=== PATIENT | female | born 1960 | race American Indian/Alaskan Native ===

== ENCOUNTER 2018-07-29 09:01 | Outpatient (CLI) | payer BC ==
[2018-07-29 09:31] LABS: Basophils % (Auto) 1.2 % (0.0-1.8); Eosinophils # (Auto) 0.1 K/mm3 (0.0-0.4); Eosinophils % (Auto) 2.9 % (0.0-4.3); Hematocrit 32.5 % (30.3-42.9); Hemoglobin 10.9 gm/dl (10.1-14.3); Lymphocytes # (Auto) 1.2 K/mm3 (1.2-5.4); Lymphocytes % (Auto) 33.1 % (13.4-35.0); Mean Corpuscular HGB Conc 33 % (30-34); Mean Corpuscular Volume 88 fl (79-97); Monocytes # (Auto) 0.3 K/mm3 (0.0-0.8); Monocytes % (Auto) 8.3 % (0.0-7.3); Platelet Count 214 K/mm3 (140-440); Red Blood Count 3.68 M/mm3 (3.65-5.03); Red Cell Distribution Width 15.1 % (13.2-15.2)
[2018-07-29 09:49] LABS: Microalbumin/Creatinine Ratio 10.9 ug/mg
[2018-07-29 09:55] LABS: Albumin 4.1 g/dL (3.9-5); Calcium 8.9 mg/dL (8.4-10.2)
[2018-07-29 10:18] LABS: Chol/HDL Ratio 2.87 %
== END 2018-07-29 09:02 | disposition home or self-care (01) ==
LOC: LAB 09:01
PROVIDERS: ATTEND Family Medicine
DX: N76.0 Acute vaginitis (principal); N39.498 Other specified urinary incontinence; E11.9 Type 2 diabetes mellitus without complications; I10 Essential (primary) hypertension; Z79.4 Long term (current) use of insulin
CPT/HCPCS: 36415; 80053; 80061; 82043; 85025

== ENCOUNTER 2018-08-04 11:39 | Outpatient (CLI) | payer BC ==
--- NOTE | 2018-08-04 13:44 | XRay Report ---
BILATERAL KNEES, 2 VIEWS History: Pain. Findings: Left knee replacement changes are identified. The hardware appears well applied. No evidence for fracture or loosening. A small joint effusion is suspected on the lateral image. The right knee is within normal limits. Impression: Stable appearance of the left knee prosthesis. Unremarkable right knee films.
--- NOTE | 2018-08-04 13:45 | XRay Report ---
BILATERAL HIPS WITH PELVIS, 3 VIEWS: History: Pain. Findings: Bone mineralization is within normal limits. There is no evidence for fracture, dislocation or pelvic diastasis. Mild bilateral osteoarthritic changes are identified. No evidence for osteonecrosis. The soft tissues are unremarkable. Impression: Mild osteoarthritis.
--- NOTE | 2018-08-04 13:45 | XRay Report ---
LUMBOSACRAL SPINE, FIVE VIEWS: HISTORY: Pain. Normal height and alignment of the lumbar vertebra. No evidence for fracture, subluxation or compression deformity. No bone lesion. Moderate disc space narrowing is identified at L5-S1. The remaining levels are within normal limits. There is mild diffuse facet arthropathy. The oblique images are limited but no high grade neuroforaminal stenosis is identified. IMPRESSION: Mild lumbar spondylosis as described.
--- NOTE | 2018-08-04 13:47 | XRay Report ---
BILATERAL FEET, 2 VIEWS History: Pain. Findings: No evidence for fracture or joint pathology or bony lesion. There are mild osteoarthritic changes in the midfoot. Small bilateral plantar spurs are identified. The soft tissues are unremarkable. Impression: Mild degenerative changes. Bilateral plantar spurs.
== END 2018-08-04 11:40 | disposition home or self-care (01) ==
LOC: XRAY 11:39
PROVIDERS: ATTEND Orthopaedic Surgery
DX: M19.072 Primary osteoarthritis, left ankle and foot (principal); M19.071 Primary osteoarthritis, right ankle and foot; M77.31 Calcaneal spur, right foot; M77.32 Calcaneal spur, left foot; M16.0 Bilateral primary osteoarthritis of hip; M47.816 Spondylosis without myelopathy or radiculopathy, lumbar region; M25.561 Pain in right knee
CPT/HCPCS: 72110; 73521

== ENCOUNTER 2018-08-28 11:40 | Emergency (ER) | payer OTHER, BC ==
[2018-08-28 11:51] VITALS: BP 140/89
--- NOTE | 2018-08-28 11:52 | Event Note ---
ED Screening Note Date of service: 08/28/18 Time: 11:49 ED Screening Note: This is a 58 y.o. F. that presents to the ER with bilateral wrist pain and knees pain s/p fall. This initial assessment/diagnostic orders/clinical plan/treatment(s) is/are subject to change based on patients health status, clinical progression and re- assessment by fellow clinical providers in the ED. Further treatment and workup at subsequent clinical providers discretion. Patient/guardian urged not to elope from the ED as their condition may be serious if not clinically assessed and managed. Initial orders include: XR wrist, left shoulder, and knees
--- NOTE | 2018-08-28 12:01 | Emergency Department Report ---
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 She denies hitting her head or any loss of consciousness. She has some mild soreness or discomfort to the bilateral wrists, bilateral knees, bilateral elbows and left shoulder. She has a past medical history of diabetes, hypertension, sleep apnea and osteoarthritis. She already follows up with Dr. Mujica regarding her osteoarthritis in her left knee replacement. Patient is ambulatory. She has not taken anything for her symptoms prior to arrival. ED Past Medical Hx - Past Medical History Hx Hypertension: Yes Hx Diabetes: Yes Hx Pulmonary Embolism: Yes Hx Arthritis: Yes Additional medical history: sleep apnea, anemia, LVH - Surgical History Additional Surgical History: Hysterectomy, tubal ligation, D&C, cysto - Social History Smoking Status: Never Smoker Substance Use Type: Prescribed ED Review of Systems ROS: Stated complaint: W/C FALL Other details as noted in HPI Comment: All other systems reviewed and negative Constitutional: denies: chills, fever Eyes: denies: eye pain, vision change Cardiovascular: denies: chest pain Gastrointestinal: denies: abdominal pain Musculoskeletal: arthralgia, myalgia. denies: back pain, joint swelling Neurological: denies: numbness, paresthesias Physical Exam - Physical Exam Vital Signs: Vital Signs 08/28/18 11:48 Temperature 98.7 F Pulse Rate 70 Respiratory 18 Rate Blood Pressure 140/89 O2 Sat by Pulse 99 Oximetry Physical Exam: GENERAL: The patient is well-developed well-nourished. HENT: Normocephalic. Atraumatic. Patient has moist mucous membranes. EYES: Extraocular motions are intact. NECK: Supple. Trachea is midline. CHEST/LUNGS: Clear to auscultation. There is no respiratory distress noted. HEART/CARDIOVASCULAR: Regular. There is no tachycardia. There is no murmur. ABDOMEN: There is no abdominal distention. SKIN: Skin is warm and dry. NEURO: The patient is awake, alert, and oriented. The patient is cooperative. The patient has normal speech. MUSCULOSKELETAL: Mild tenderness to palpation of the bilateral anterior knees, bilateral wrists and bilateral elbows. No obvious deformities. Negative anterior and posterior drawer test and no laxity with valgus or varus stress of either knee. There is no limitation range of motion. There is no evidence of acute injury. 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 She fell forward onto her abdomen, hitting her knees, elbows and wrists. She has some mild tenderness to palpation of these areas. No obvious deformities. The patient was seen ambulatory without any instability or limp. No obvious swelling or trauma. The patient declined any imaging studies. She already has established care with Dr. Mujica, orthopedist. She is instructed to return to the emergency Department with any worsening of her symptoms or any acute distress. - Differential Diagnosis fracture, dislocation, sprain, strain, contusion Critical Care Time: No Critical care attestation.: If time is entered above; I have spent that time in minutes in the direct care of this critically ill patient, excluding procedure time. ED Disposition Clinical Impression: Bilateral wrist pain, Bilateral elbow joint pain Fall Qualifiers: Encounter type: initial encounter Qualified Code(s): W19.XXXA - Unspecified fall, initial encounter Bilateral knee pain Qualifiers: Chronicity: acute Qualified Code(s): M25.561 - Pain in right knee; M25.562 - Pain in left knee Left shoulder pain Qualifiers: Chronicity: acute Qualified Code(s): M25.512 - Pain in left shoulder Disposition: TO HOME OR SELFCARE Is pt being admited?: No Does the pt Need Aspirin: No Condition: Stable Instructions: Arthralgia (ED), Fall Prevention (ED) Additional Instructions: Please follow-up with your primary care physician and orthopedist in the next few days. Please return to the emergency department with any increased pain, new pains, worsening of your symptoms, if any acute distress. Referrals: REECE MUJICA MD [Staff Physician] - 3-5 Days Time of Disposition: 12:01
== END 2018-08-28 12:03 | disposition home or self-care (01) ==
LOC: EEVIPCON 11:40 → ED 11:40
DX: M25.522 Pain in left elbow (principal); M25.521 Pain in right elbow; M25.512 Pain in left shoulder; M25.532 Pain in left wrist; M25.531 Pain in right wrist; M25.561 Pain in right knee; M25.562 Pain in left knee; I10 Essential (primary) hypertension; E11.9 Type 2 diabetes mellitus without complications; M19.90 Unspecified osteoarthritis, unspecified site; Z90.710 Acquired absence of both cervix and uterus; Z98.51 Tubal ligation status; Z88.8 Allergy status to other drugs, medicaments and biological substances; Z88.6 Allergy status to analgesic agent; Z91.041 Radiographic dye allergy status; W01.0XXA Fall on same level from slipping, tripping and stumbling without subsequent striking against object, initial encounter; Y93.89 Activity, other specified; Y92.89 Other specified places as the place of occurrence of the external cause; Y99.8 Other external cause status
CPT/HCPCS: 99282

== ENCOUNTER 2018-10-01 13:23 | Outpatient (CLI) | payer BC ==
--- NOTE | 2018-10-04 10:37 | Mammography Report ---
DIGITAL SCREENING MAMMOGRAM WITH CAD, 10/01/2018 INDICATION: Routine screening mammography. TECHNIQUE: Digital bilateral 2D mammography was obtained in the craniocaudal and mediolateral obliq ue projections. This examination was interpreted with the benefit of Computer-Aided Detection analysi s. COMPARISON: None available FINDINGS: Breast Density: The breasts are almost entirely fatty. There is no evidence of dominant mass, suspicious calcifications or architectural distortion in eithe r breast. IMPRESSION: No evidence of malignancy. BI-RADS Category 1: Negative. No mammographic evidence of malignancy. Recommend routine screening m ammography in one year. A "normal" or negative report should not discourage follow up or biopsy of a clinically significant f inding. A written summary of these findings will be mailed to the patient. The patient will be entered into a mammography reporting system which will generate a reminder letter for the patient's next appointmen t at the appropriate interval. The [employer] recommends yearly mammograms starting at age 40 and continuing as l lidia as a woman is in good health. Breast MRI is recommended for women with an approximate 20-25% or greater lifetime risk of breast cancer, including women with a strong family history of breast or ova john cancer or who have been treated for Hodgkin's disease. Signer Name: Benita Black MD Signed: 10/04/2018 10:32 AM Workstation Name: [id number]
== END 2018-10-01 13:24 | disposition home or self-care (01) ==
LOC: MAMMO 13:23
PROVIDERS: ATTEND Family Medicine
DX: Z12.31 Encounter for screening mammogram for malignant neoplasm of breast (principal); I10 Essential (primary) hypertension; Z90.710 Acquired absence of both cervix and uterus
CPT/HCPCS: 77067

== ENCOUNTER 2018-10-12 09:14 | Outpatient (CLI) | payer BC ==
--- NOTE | 2018-10-12 10:16 | Cat Scan Report ---
CT ABDOMEN AND PELVIS WITHOUT CONTRAST HISTORY: Right upper quadrant pain COMPARISON: None TECHNIQUE: Routine abdominal CT exam performed . All CT scans at this location are performed using CT dose reduction for ALARA by means of automated exposure control. FINDINGS: CT ABDOMEN: Lung Bases: A small pericardial effusion and mild cardiomegaly. The lung bases are clear. Liver: No significant abnormality. Biliary: Normal gallbladder and bile ducts. Spleen: No significant abnormality. Unenlarged. Pancreas: No significant abnormality. Adrenals: No significant abnormality. Kidneys: Bilateral upper pole renal cyst. A hyperdense 1 cm right upper pole cyst and a 1.9 cm left u pper pole renal cyst. Physiologic distention of the collecting systems. No urinary calculus. Lymphatics: No lymphadenopathy. Vasculature: No significant abnormality. Bowel/Peritoneum: No significant abnormality. No free air. No free fluid. Normal appendix. Osseous Structures: No aggressive appearing osseous lesions. Additional Findings: None PELVIS: Urinary bladder: Normal. Status post hysterectomy with normal vaginal cuff. A normal small right ovary. No adnexal mass or minerva e fluid. IMPRESSION: 1. No cholelithiasis and no signs of acute cholecystitis. 2. Bilateral benign renal cysts with a hemorrhagic 1 cm right upper pole renal cyst. 3. Normal pelvis status post hysterectomy and left salpingo-oophorectomy. Signer Name: Greg Lopes MD Signed: 10/12/2018 10:11 AM Workstation Name: [id number]
--- NOTE | 2018-10-12 11:09 | Ultrasound Report ---
ULTRASOUND RENAL ULTRASOUND BLADDER RESIDUAL INDICATION / CLINICAL INFORMATION: R94.4) Abnormal results of kidney function studies.. Chronic kidney disease COMPARISON: None available. FINDINGS: RIGHT KIDNEY: Length = 8.4 cm. [normal > 9 cm] - Parenchymal Thickness = neuro 0.9 cm. [normal > 1.5 cm] - Echogenicity: Increased - Hydronephrosis: None. - Cyst or mass: 1.2 cm cyst near mid pole - Stones: None seen. LEFT KIDNEY: Length = 7.3 cm. [normal > 9 cm] - Parenchymal Thickness = 1.3 cm. [normal > 1.5 cm] - Echogenicity: Increased - Hydronephrosis: None. - Cyst or mass: 2.3 x 1.7 cm cyst near the superior pole - Stones: None seen. URINARY BLADDER: No significant abnormality. Prevoid bladder volume measures 28 cc. No significant po st void residual. FREE FLUID: None. ADDITIONAL FINDINGS: None. IMPRESSION: Chronic renal parenchymal disease. Bilateral simple renal cysts. No significant post void residual. Signer Name: Drew Calvert Jr, MD Signed: 10/12/2018 11:05 AM Workstation Name: [id number]
== END 2018-10-12 09:15 | disposition home or self-care (01) ==
LOC: CT 09:14
PROVIDERS: ATTEND Urology
DX: N28.1 Cyst of kidney, acquired (principal); I13.10 Hypertensive heart and chronic kidney disease without heart failure, with stage 1 through stage 4 chronic kidney disease, or unspecified chronic kidney disease; N18.9 Chronic kidney disease, unspecified; Z90.710 Acquired absence of both cervix and uterus
CPT/HCPCS: 74176; 76770; 76857

== ENCOUNTER 2018-10-18 07:40 | Day surgery (SDC) | payer BC ==
[~2018-10-18 07:40] MED LIST: FLAGYL 500 MG/100 ML 500 MG/100 ML BAG IV NR
[2018-10-18] MEDS ORDERED: ZOFRAN IV PRN (08:33)
[2018-10-18] MEDS ORDERED: SUBLIMAZE IV PRN (08:33)
--- NOTE | 2018-10-18 08:38 | Anesthesia Day of Surgery ---
Anesthesia Day of Surgery - Day of Surgery Patient Examined: Yes Patient H&P Reviewed: Yes Patient is NPO: Yes
[2018-10-18] MEDS ORDERED: PROTONIX PO NR (08:42)
--- NOTE | 2018-10-18 08:43 | Anesthesia Consultation ---
Anesthesia Consult and Med Hx Date of service: 10/18/18 - Airway Anesthetic Teeth Evaluation: Good, Dentures ROM Head & Neck: Adequate Mental/Hyoid Distance: Adequate Mallampati Class: Class II Intubation Access Assessment: Good - Pre-Operative Health Status ASA Pre-Surgery Classification: ASA3 Proposed Anesthetic Plan: General - Pulmonary Hx Smoking: No (PE at age 22 secondary to OCP) Hx Sleep Apnea: Yes (DX SLEEP APNEA WITH CPAP USE.) - Cardiovascular System Hx Hypertension: Yes (X 20 YRS. LVH. ETT 5 years ago-ok per pt) Hx Heart Attack/AMI: No (Can climb two flights of stairs) - Central Nervous System Hx Back Pain: Yes - Gastrointestinal Hx Gastroesophageal Reflux Disease: Yes - Endocrine Hx Non-Insulin Dependent Diabetes: Yes - Hematic Hx Anemia: Yes - Other Systems Hx Cancer: No
[2018-10-18] MEDS ORDERED: NORVASC PO ONE (09:00)
[2018-10-18] MEDS ORDERED: LACTATED RINGERS 1,000 ML IV SCH (09:00)
[2018-10-18] MEDS ORDERED: VERSED IV NR (09:00)
[2018-10-18] MEDS: MORPHINE IV NR ×2 (09:50→12:01)
[2018-10-18] MEDS ORDERED: DIPRIVAN 10 MG/ML IV ONE (10:36)
[2018-10-18] MEDS ORDERED: SUBLIMAZE ONE (10:36)
[2018-10-18] MEDS ORDERED: ZOFRAN ONE (10:36)
[2018-10-18] MEDS ORDERED: XYLOCAINE MPF 2% ONE (10:36)
[2018-10-18] MEDS ORDERED: DECADRON ONE (10:36)
[2018-10-18] MEDS ORDERED: TORADOL ONE (11:46)
[2018-10-18] MEDS ORDERED: PYRIDIUM PO ONE (11:53)
--- NOTE | 2018-10-18 11:53 | Short Stay Summary ---
Short Stay Documentation Date of service: 10/18/18 - History H&P: obtained from office - Allergies and Medications Current Medications: Allergies atorvastatin [From Lipitor] Allergy (Verified 10/08/18 11:23) MUSCLE PAIN Iodinated Contrast- Oral and IV Dye Allergy (Verified 08/28/18 11:42) Hives lamivudine [From Combivir] Allergy (Verified 10/08/18 11:23) MUSCLE WEAKNESS ramipril [From Altace] Allergy (Verified 10/08/18 11:38) ORAL SWELLING sitagliptin [From Janumet] Allergy (Verified 10/08/18 11:38) MUSCLE WEAKNESS zidovudine [From Combivir] Allergy (Verified 10/08/18 11:38) MUSCLE WEAKNESS amoxicillin [From Augmentin] Adverse Reaction (Verified 10/08/18 11:38) Unknown clavulanic acid [From Augmentin] Adverse Reaction (Verified 10/08/18 11:38) GI UPSET ibuprofen Adverse Reaction (Verified 10/08/18 11:39) DECREASED RENAL FUNCTION PT NOT ACTUALLY ALLERGIC,BUT WAS TOLD NOT TO TAKE IT BECAUSE OF HER KIDNEYS. Home Medications Medication Instructions Recorded Confirmed Last Taken Type Cetirizine HCl [ZyrTEC 10mg cap] 10 mg PO PRN PRN 10/08/18 10/18/18 10/12/18 06:00 History Fluticasone [Flonase] 1 spray NS QDAY 10/08/18 10/08/18 Unknown History Iron Fum,Ps/Folic/Bcomp,C No.9 1 each PO DAILY 10/08/18 10/18/18 10/17/18 06:00 History [Folivane-Plus Capsule] L. Acidophilus/Pectin, [address] 1 each PO DAILY 10/08/18 10/08/18 Unknown History [Acidophilus Probiotic Capsule] Lansoprazole [Prevacid] 30 mg PO DAILY 10/08/18 10/08/18 Unknown History Losartan/Hydrochlorothiazide 1 each PO DAILY 10/08/18 10/08/18 Unknown History [Losartan-Hctz 100-25 mg Tab] Saxagliptin HCl/Metformin HCl 1 each PO DAILY 10/08/18 10/08/18 Unknown History [Kombiglyze Xr 2.5-1,000 mg Tab] Tamsulosin [Flomax] 0.4 mg PO QDAY 10/08/18 10/08/18 Unknown History Tizanidine HCl [Zanaflex 4mg CAP] 4 mg PO PRN PRN 10/08/18 10/08/18 Unknown History amLODIPine [Norvasc] 5 mg PO DAILY 10/08/18 10/18/18 Unknown History traMADol [Ultram] 50 mg PO Q4HR PRN 10/08/18 10/18/18 10/16/18 21:00 History Active Medications Fentanyl (Sublimaze) 50 mcg IV Q5MIN PRN PRN Reason: Pain , Severe (7-10) Stop: 10/18/18 20:00 Metronidazole (Flagyl 500 Mg/100 Ml) 500 mg in 100 mls @ 200 mls/hr IV PREOP NR; Protocol Stop: 10/18/18 23:59 Lactated Ringer's (Lactated Ringers) 1,000 mls @ 100 mls/hr IV DIRECT GIAN Midazolam HCl (Versed) 2 mg IV PREOP NR Stop: 10/18/18 23:59 Morphine Sulfate (Morphine) 2 mg IV ONCE NR Stop: 10/18/18 18:00 Ondansetron HCl (Zofran) 4 mg IV ONCE PRN PRN Reason: Nausea And Vomiting Stop: 10/18/18 20:00 Pantoprazole Sodium (Protonix) 20 mg PO ONCE NR Stop: 10/18/18 18:00 - Brief post op/procedure progress note Date of procedure: 10/18/18 Pre-op diagnosis: ITU, urethral stenosis Post-op diagnosis: same Procedure: cysto, urethral dilation, RPG, hydrodistention (800cc) Anesthesia: GETA Surgeon: LUIS ROSALES Estimated blood loss: minimal Pathology: none Condition: stable - Hospital course Hospital course: macrobid, pyridium, norco on chart - Disposition Condition at discharge: Stable Disposition: DC-01 TO HOME OR SELFCARE Short Stay Discharge Plan Follow up with: PCP,FOLLOW UP, MD [Primary Care Provider] - 7 Days
[2018-10-18] MEDS ORDERED: NORCO 5/325 PO PRN (12:19)
--- NOTE | 2018-10-18 12:52 | Operative Report ---
PREOPERATIVE DIAGNOSES: Urethral stenosis, urinary tract infection. POSTOPERATIVE DIAGNOSES: Urethral stenosis, urinary tract infection. PROCEDURE: Cystoscopy, urethral dilatation, bilateral retrograde pyelograms, hydrodistention (800 mL bladder capacity). SURGEON: Kash Ann MD ANESTHESIA: General. ESTIMATED BLOOD LOSS: Minimal. FLUIDS: Crystalloid. COMPLICATIONS: No complications. INDICATIONS: This patient is a 58-year-old female seen in the office with history of left flank pain and lower urinary tract symptoms. She has had a history of urethral strictures and has required a cystoscopy, urethral dilatation under anesthesia by Dr. Janneth Alvarado 5 years ago. Her classics professor is Dr. Vikas Metzger, her primary care is Dr. Pedro Dunham. She also has a history of diabetes, hyperlipidemia, hypertension and sleep apnea. She is status post hysterectomy, D and C x 3, tubal ligation, and history of stones. CT of abdomen and pelvis, kidneys unremarkable except for incidental bilateral renal cysts, left 1 cm and 1.9 cm. Also, post-surgical changes were noted. She does have a history of right flank pain, may have passed a stone recently or has a degree of musculoskeletal disease. DESCRIPTION OF PROCEDURE: The patient was taken to the operative suite, placed in a supine position. After adequate general anesthesia, placed in a dorsal lithotomy position, prepped and draped in a sterile fashion. Pancystourethroscopy was performed with a 22-Ecuadorean Storz cystoscope with what appeared to be some urethral stenosis. Urethral dilatation to 30-Ecuadorean was performed without difficulty. Both ureteral orifices were in normal position. No tumors or stones were noted in the bladder. Bilateral retrograde pyelograms were obtained with an 8 Ecuadorean Rebekah catheter and 8 mL of contrast. No filling defects or obstruction. Hydrodistention was performed. A bladder capacity of 800 mL for evaluation, no signs of petechiae or hemorrhage. Pelvic exam under anesthesia was unremarkable. The patient tolerated the procedure well. She was extubated and taken to recovery room. She will go home on Pyridium, [place] and Macrobid. JOB# [id number] C/NTS
--- NOTE | 2018-10-18 13:35 | Fluoroscopy Report ---
5 fluoroscopic images submitted Indication: Intraoperative localization Impression: 5 images of the abdomen were submitted for documentation purposes with radiology involve ment. Bilateral retrograde pyelograms were performed. Please refer to the operative note for complet e details. Fluoroscopic time: 0.3 minutes Signer Name: Tomasz Smith MD Signed: 10/18/2018 1:31 PM Workstation Name: [id number]
[2018-10-18 13:42] VITALS: BP 110/75
--- NOTE | 2018-10-18 17:53 | Post Anesthesia Evaluation ---
- Post Anesthesia Evaluation Patient Participated: Yes Airway Patent: Yes Stable Respiratory Function: Yes Nausea/Vomiting: No Temp > 96.8F: Yes Pain Manageable: Yes Adequeate Hydration: Yes Anesthesia Complications: No Block Receding Appropriately: Not Applicable Patient on Ventilator: No
== END 2018-10-18 07:41 | disposition home or self-care (01) ==
LOC: OR 07:40
PROVIDERS: ATTEND Urology
DX: N35.82 Other urethral stricture, female (principal); N39.0 Urinary tract infection, site not specified; I25.2 Old myocardial infarction; E78.00 Pure hypercholesterolemia, unspecified; I10 Essential (primary) hypertension; K21.9 Gastro-esophageal reflux disease without esophagitis; G47.30 Sleep apnea, unspecified; M19.90 Unspecified osteoarthritis, unspecified site; E11.9 Type 2 diabetes mellitus without complications; Z79.899 Other long term (current) drug therapy; Z88.6 Allergy status to analgesic agent; Z91.041 Radiographic dye allergy status; Z90.49 Acquired absence of other specified parts of digestive tract; Z98.51 Tubal ligation status; Z90.710 Acquired absence of both cervix and uterus; Z87.442 Personal history of urinary calculi; Z96.652 Presence of left artificial knee joint; Z86.2 Personal history of diseases of the blood and blood-forming organs and certain disorders involving the immune mechanism
CPT/HCPCS: 52281; 74420; 82803; 82962; C1758; J1100; J1885; J2250; J2270; J2405; J2704; J3010; J7120; Q9967

== ENCOUNTER 2018-11-08 07:23 | Outpatient (CLI) | payer BC ==
[2018-11-08 08:29] LABS: Hematocrit 32.9 % (30.3-42.9); Hemoglobin 11.1 gm/dl (10.1-14.3); Mean Corpuscular HGB Conc 34 % (30-34); Mean Corpuscular Volume 88 fl (79-97); Platelet Count 227 K/mm3 (140-440); Red Blood Count 3.74 M/mm3 (3.65-5.03); Red Cell Distribution Width 14.6 % (13.2-15.2)
[2018-11-08 14:09] LABS: Creatinine,Urine 69.1 mg/dL (0.1-20.0)
== END 2018-11-08 07:24 | disposition home or self-care (01) ==
LOC: LAB 07:23
PROVIDERS: ATTEND Internal Medicine
DX: R94.4 Abnormal results of kidney function studies (principal); I10 Essential (primary) hypertension; E11.21 Type 2 diabetes mellitus with diabetic nephropathy; E11.65 Type 2 diabetes mellitus with hyperglycemia; E78.5 Hyperlipidemia, unspecified; K21.9 Gastro-esophageal reflux disease without esophagitis; N13.9 Obstructive and reflux uropathy, unspecified
CPT/HCPCS: 36415; 80053; 82565; 82570; 82575; 84156; 85027; 89050

== ENCOUNTER 2019-03-10 06:31 | Outpatient (CLI) | payer BC ==
[2019-03-10 06:50] LABS: Hematocrit 32.5 % (30.3-42.9); Hemoglobin 10.9 gm/dl (10.1-14.3); Mean Corpuscular HGB Conc 34 % (30-34); Mean Corpuscular Volume 88 fl (79-97); Platelet Count 209 K/mm3 (140-440); Red Blood Count 3.69 M/mm3 (3.65-5.03); Red Cell Distribution Width 15.3 % (13.2-15.2)
[2019-03-10 07:16] LABS: Albumin 4.1 g/dL (3.9-5); Calcium 9.2 mg/dL (8.4-10.2)
[2019-03-10 10:39] LABS: Creatinine,Urine 90.6 mg/dL (0.1-20.0); Protein/Creatinine Ratio,Urine 0.1
== END 2019-03-10 06:32 | disposition home or self-care (01) ==
LOC: LAB 06:31
PROVIDERS: ATTEND Internal Medicine
DX: R94.4 Abnormal results of kidney function studies (principal)
CPT/HCPCS: 36415; 80053; 82570; 84156; 85027

== ENCOUNTER 2019-09-01 09:19 | Emergency (ER) | payer OTHER, BC ==
[2019-09-01 09:27] VITALS: BP 127/71
[2019-09-01] MEDS ORDERED: HYDROcodone/ACETAMINOPHEN 10-325MG TAB PO ONE (09:47)
--- NOTE | 2019-09-01 10:32 | XRay Report ---
LUMBAR SPINE 3 VIEWS INDICATION: Low back pain after fall. COMPARISON: Lumbar spine series from 08/04/2018. FINDINGS: VERTEBRAE: No acute fracture. Grade 1 anterolisthesis is noted at L4-L5. DISC SPACES: Mild discogenic degenerative changes seen at L5-S1 and along the lower thoracic spine. N o additional significant abnormality. FACET JOINTS: There is bilateral facet hypertrophy at L4-L5 and L5-S1. SOFT TISSUES: No significant abnormality. ADDITIONAL FINDINGS: No additional significant findings. IMPRESSION: 1. No acute findings. 2. Degenerative changes as above. Signer Name: Baltazar Blackman MD Signed: 09/01/2019 10:27 AM Workstation Name: [id number]
--- NOTE | 2019-09-01 10:40 | Emergency Department Report ---
ED Back Pain/Injury HPI - General Chief Complaint: Fall Stated Complaint: FALL Time Seen by Provider: 09/01/19 09:45 Source: patient Limitations: No Limitations - History of Present Illness Initial Comments: This is a 59-year-old female nontoxic, well nourished in appearance, no acute signs of distress presents to the ED with c/o of lower back pain. Patient stated that she had a ground level fall from a chair to her lower back. Patient states has history of sciatica nerve pain which is similar symptoms as today. Patient states that pain radiates through to his left lower extremity. Patient denies any other trauma. Denies any bladder or bowel instability. Patient denies any urinary symptoms. Denies any fever, chills, nausea, vomiting, headache, stiff neck, chest pain or shortness of breath. Patient denies any numbness or tingling. MD Complaint: back pain -: days(s) Similar Symptoms Previously: Yes Place: work Radiation: left leg Severity: mild Severity scale (0 -10): 8 Quality: aching Consistency: intermittent Improves With: immobilization, sitting upright Worsens With: movement, walking Context: fall Associated Symptoms: denies other symptoms. denies: confusion, weakness, chest pain, numbness, difficulty walking, cough, difficulty urinating, diaphoresis, incontinence, fever/chills, constipation, headaches, abdominal pain, loss of appetite, malaise, nausea/vomiting, rash, seizure, shortness of breath, syncope - Related Data Home Medications Medication Instructions Recorded Confirmed Last Taken Cetirizine HCl [ZyrTEC 10mg cap] 10 mg PO PRN PRN 10/08/18 10/18/18 10/12/18 06:00 Fluticasone [Flonase] 1 spray NS QDAY 10/08/18 10/18/18 10/17/18 06:00 Iron Fum,Ps/Folic/Bcomp,C No.9 1 each PO DAILY 10/08/18 10/18/18 10/17/18 06:00 [Folivane-Plus Capsule] L. Acidophilus/Pectin, Power 1 each PO DAILY 10/08/18 10/18/18 10/16/18 06:00 [Acidophilus Probiotic Capsule] Lansoprazole [Prevacid] 30 mg PO DAILY 10/08/18 10/18/18 10/18/18 06:00 Losartan/Hydrochlorothiazide 1 each PO DAILY 10/08/18 10/18/18 10/18/18 06:00 [Losartan-Hctz 100-25 mg Tab] Saxagliptin HCl/Metformin HCl 1 each PO DAILY 10/08/18 10/18/18 10/18/18 06:00 [Kombiglyze Xr 2.5-1,000 mg Tab] Tamsulosin [Flomax] 0.4 mg PO QDAY 10/08/18 10/18/18 10/17/18 21:30 Tizanidine HCl [Zanaflex 4mg CAP] 4 mg PO PRN PRN 10/08/18 10/18/18 10/16/18 21:00 amLODIPine 5 mg PO DAILY 10/08/18 10/18/18 Unknown traMADoL [Ultram] 50 mg PO Q4HR PRN 10/08/18 10/18/18 10/16/18 21:00 Previous Rx's Medication Instructions Recorded Last Taken Type traMADoL [Ultram 50 MG tab] 50 mg PO Q4HR PRN #120 tablet 04/20/19 Unknown Rx Cyclobenzaprine [Flexeril] 10 mg PO QHS PRN #10 tablet 09/01/19 Unknown Rx Allergies Allergy/AdvReac Type Severity Reaction Status Date / Time atorvastatin [From Lipitor] Allergy MUSCLE PAIN Verified 10/08/18 11:23 Iodinated Contrast Media Allergy Hives Verified 08/28/18 11:42 [Iodinated Contrast- Oral and IV Dye] lamivudine [From Combivir] Allergy MUSCLE Verified 10/08/18 11:23 WEAKNESS ramipril [From Altace] Allergy ORAL Verified 10/08/18 11:38 SWELLING sitagliptin [From Janumet] Allergy MUSCLE Verified 10/08/18 11:38 WEAKNESS zidovudine [From Combivir] Allergy MUSCLE Verified 10/08/18 11:38 WEAKNESS amoxicillin [From Augmentin] AdvReac Unknown Verified 10/08/18 11:38 clavulanic acid AdvReac GI UPSET Verified 10/08/18 11:38 [From Augmentin] ibuprofen AdvReac DECREASED Verified 10/08/18 11:39 RENAL FUNCTION ED Review of Systems ROS: Stated complaint: FALL Other details as noted in HPI Constitutional: denies: chills, fever Eyes: denies: eye pain, eye discharge, vision change ENT: denies: ear pain, throat pain Respiratory: denies: cough, shortness of breath, wheezing Cardiovascular: denies: chest pain, palpitations Endocrine: no symptoms reported Gastrointestinal: denies: abdominal pain, nausea, diarrhea Genitourinary: denies: urgency, dysuria, discharge Musculoskeletal: back pain. denies: joint swelling, arthralgia Skin: denies: rash, lesions Neurological: denies: headache, weakness, paresthesias Psychiatric: denies: anxiety, depression Hematological/Lymphatic: denies: easy bleeding, easy bruising ED Past Medical Hx - Past Medical History Previous Medical History?: Yes Hx Hypertension: Yes (X 20 YRS. LVH. ETT 5 years ago-ok per pt) Hx Heart Attack/AMI: No (Can climb two flights of stairs) Hx Diabetes: Yes Hx Pulmonary Embolism: Yes Hx Arthritis: Yes Additional medical history: sleep apnea, anemia, LVH - Surgical History Past Surgical History?: Yes Additional Surgical History: Hysterectomy, tubal ligation, D&C, cysto - Social History Smoking Status: Never Smoker Substance Use Type: None - Medications Home Medications: Home Medications Medication Instructions Recorded Confirmed Last Taken Type Cetirizine HCl [ZyrTEC 10mg cap] 10 mg PO PRN PRN 10/08/18 10/18/18 10/12/18 06:00 History Fluticasone [Flonase] 1 spray NS QDAY 10/08/18 10/18/18 10/17/18 06:00 History Iron Fum,Ps/Folic/Bcomp,C No.9 1 each PO DAILY 10/08/18 10/18/18 10/17/18 06:00 History [Folivane-Plus Capsule] L. Acidophilus/Pectin, Power 1 each PO DAILY 10/08/18 10/18/18 10/16/18 06:00 History [Acidophilus Probiotic Capsule] Lansoprazole [Prevacid] 30 mg PO DAILY 10/08/18 10/18/18 10/18/18 06:00 History Losartan/Hydrochlorothiazide 1 each PO DAILY 10/08/18 10/18/18 10/18/18 06:00 History [Losartan-Hctz 100-25 mg Tab] Saxagliptin HCl/Metformin HCl 1 each PO DAILY 10/08/18 10/18/18 10/18/18 06:00 History [Kombiglyze Xr 2.5-1,000 mg Tab] Tamsulosin [Flomax] 0.4 mg PO QDAY 10/08/18 10/18/18 10/17/18 21:30 History Tizanidine HCl [Zanaflex 4mg CAP] 4 mg PO PRN PRN 10/08/18 10/18/18 10/16/18 21:00 History amLODIPine 5 mg PO DAILY 10/08/18 10/18/18 Unknown History traMADoL [Ultram] 50 mg PO Q4HR PRN 10/08/18 10/18/18 10/16/18 21:00 History traMADoL [Ultram 50 MG tab] 50 mg PO Q4HR PRN #120 tablet 04/20/19 Unknown Rx Cyclobenzaprine [Flexeril] 10 mg PO QHS PRN #10 tablet 09/01/19 Unknown Rx ED Physical Exam - General Limitations: No Limitations General appearance: alert, in no apparent distress - Head Head exam: Present: atraumatic, normocephalic - Eye Eye exam: Present: normal appearance - Neck Neck exam: Present: normal inspection, full ROM. Absent: tenderness, meningismus, lymphadenopathy - Cardiovascular Cardiovascular Exam: Absent: diastolic murmur - Extremities Exam Extremities exam: Present: normal inspection, full ROM, normal capillary refill. Absent: tenderness - Back Exam Back exam: Present: normal inspection, full ROM, paraspinal tenderness (lumbar region), vertebral tenderness (lumbar region). Absent: tenderness, CVA tenderness (R), CVA tenderness (L), muscle spasm, rash noted - Expanded Back Exam Expanded Back exam: Absent: saddle anesthesia Back exam: Negative Straight Leg Raising: Left, Right - Neurological Exam Neurological exam: Present: alert, oriented X3, normal gait - Psychiatric Psychiatric exam: Present: normal affect, normal mood - Skin Skin exam: Present: warm, dry, intact, normal color. Absent: rash ED Course Vital Signs 09/01/19 09/01/19 09:26 09:51 Temperature 98.4 F Pulse Rate 68 Respiratory 16 16 Rate Blood Pressure 127/71 O2 Sat by Pulse 100 Oximetry - Reevaluation(s) Reevaluation #1: 09/01/19 10:38 Patient is speaking in full sentences with no signs of distress noted. ED Medical Decision Making - Radiology Data Referring Physician: DARLIN MORALES Patient Name: WAGNER VELA Date of : 1960 Sex: Female Report Date: 2019-09-01 Report Status: Finalized [facility] [address] [place] [address] XRay Report Signed Patient: WAGNER VELA MR#: [id number] : 1960 Acct:[id number] Age/Sex: 59 / F ADM Date: 09/01/19 Loc: ED Attending Dr: Ordering Physician: DARLIN MORALES NP Date of Service: 09/01/19 Procedure(s): XR spine lumbosacral 2-3V Accession Number(s): [id number] cc: DARLIN MORALES NP Fluoro Time In Minutes: LUMBAR SPINE 3 VIEWS INDICATION: Low back pain after fall. COMPARISON: Lumbar spine series from 08/04/2018. FINDINGS: VERTEBRAE: No acute fracture. Grade 1 anterolisthesis is noted at L4-L5. DISC SPACES: Mild discogenic degenerative changes seen at L5-S1 and along the lower thoracic spine. No additional significant abnormality. FACET JOINTS: There is bilateral facet hypertrophy at L4-L5 and L5-S1. SOFT TISSUES: No significant abnormality. ADDITIONAL FINDINGS: No additional significant findings. IMPRESSION: 1. No acute findings. 2. Degenerative changes as above. Signer Name: Baltazar Blackman MD Signed: 09/01/2019 10:27 AM Workstation Name: [id number] Transcribed By: MN Dictated By: Baltazar Blackman MD Electronically Auth enticated By: Baltazar Blackman MD Signed Date/Time: 09/01/19 1027 DD/ 1026 TD/TT: - Medical Decision Making This is a 59-year-old female that presents with low back strain. Patient is stable was examined by me. There is no cauda equina syndrome during examination. No bladder or bowel instability. Patient received Norcvo in the ED which stated that her symptoms has resolved and subsided. PAtient stated that her will drive her home after discharge due to possible drowiness. Patient is discharged with muscle relaxant. Patient was instructed not to operate any machinery while taking muscle relaxant as they cause her drowsiness. Patient was referred to Follow-up with a primary care doctor in 3-5 days or if symptoms worsen and continue return to emergency room as soon as possible. At time of discharge, the patient does not seem toxic or ill in appearance. No acute signs of distress noted. Patient agrees to discharge treatment plan of care. No further questions noted by the patient. This chart is dictated with using [employer] Dictation Program Critical care attestation.: If time is entered above; I have spent that time in minutes in the direct care of this critically ill patient, excluding procedure time. ED Disposition Clinical Impression: Low back strain Qualifiers: Encounter type: initial encounter Qualified Code(s): S39.012A - Strain of muscle, fascia and tendon of lower back, initial encounter Disposition: TO HOME OR SELFCARE Is pt being admited?: No Does the pt Need Aspirin: No Condition: Stable Instructions: Low Back Strain (ED), Cyclobenzaprine (By mouth) Additional Instructions: Follow-up with a primary care doctor in 3-5 days or if symptoms worsen and continue return to emergency room as soon as possible. Take Flexeril as prescribed. Do not operate heavy machinery while taking Flexeril due to sedation Prescriptions: Cyclobenzaprine [Flexeril] 10 mg PO QHS PRN #10 tablet PRN Reason: Muscle Spasm Referrals: SUNSHINE VASQUEZ MD [Other] - 3-5 Days PRIMARY CAREMD [Referring] - 3-5 Days MEG BAL MD [Staff Physician] - 3-5 Days Forms: Work/School Release Form(ED)
== END 2019-09-01 10:51 | disposition home or self-care (01) ==
LOC: ED 09:19
DX: S39.012A Strain of muscle, fascia and tendon of lower back, initial encounter (principal); I10 Essential (primary) hypertension; E11.9 Type 2 diabetes mellitus without complications; M19.90 Unspecified osteoarthritis, unspecified site; Z79.899 Other long term (current) drug therapy; Z90.710 Acquired absence of both cervix and uterus; Z98.51 Tubal ligation status; Z91.041 Radiographic dye allergy status; Z79.2 Long term (current) use of antibiotics; Z88.8 Allergy status to other drugs, medicaments and biological substances; W07.XXXA Fall from chair, initial encounter; Y93.89 Activity, other specified; Y92.89 Other specified places as the place of occurrence of the external cause; Y99.8 Other external cause status
CPT/HCPCS: 72100; 99283

== ENCOUNTER 2019-10-26 11:31 | Outpatient (CLI) | payer BC, OTHER ==
--- NOTE | 2019-10-26 13:45 | Magnetic Resonance Report ---
MR lumbar spine wo con INDICATION / CLINICAL INFORMATION: 59 years Female; MAIN. TECHNIQUE: Multisequence, multiplanar images of the lumbar spine were obtained. COMPARISON: None available. FINDINGS: ALIGNMENT: There is 5 mm of anterolisthesis at L4-L5 with disc desiccation and facet joint hypertroph y. There is minimal retrolisthesis at L3-4 with disc desiccation. VERTEBRAE:There are advanced degenerative disc changes at L5-S1 with slight endplate edema on the lef t at. VISUALIZED SPINAL CORD: The motion degrades the image quality despite repeat imaging. However, the di stal spinal cord appears to demonstrate appropriate morphology and terminates at L1-2. [id number] ANALYSIS: L1-2: No significant abnormality. L2-3: No significant abnormality. L3-4: The spondylosis minimally flattens the ventral thecal sac. The facet joint hypertrophy contribu tasha to mild neural foraminal narrowing bilaterally. L4-5: The central disc bulge slightly flattens the thecal sac. The neural from narrowing mildly encro aches on the exiting L4 nerve root sheaths bilaterally. L5-S1: The broad-based central disc bulge and annular tear mildly flattens the ventral thecal sac wit h slight encroachment on the left lateral recess. The foraminal spondylosis and facet joint hypertrop hy also mildly encroach on the exiting L5 nerve root sheaths bilaterally. PARASPINAL SOFT TISSUES: No significant abnormality. ADDITIONAL FINDINGS: No epidural collections are identified. IMPRESSION: 1. There is mild anterolisthesis at L4-L5 with facet joint hypertrophy which mildly encroaches on the exiting L4 nerve root sheaths bilaterally. 2. There are advanced degenerative disc changes at L5-S1 with broad-based disc bulge which mildly def orms the ventral thecal sac. The foraminal narrowing mildly encroaches on the exiting L5 nerve root s heaths bilaterally. Signer Name: Haim Salgado MD Signed: 10/26/2019 1:41 PM Workstation Name: [id number]
== END 2019-10-26 11:32 | disposition home or self-care (01) ==
LOC: MRI 11:31
PROVIDERS: ATTEND Orthopaedic Surgery
DX: M51.27 Other intervertebral disc displacement, lumbosacral region (principal); M47.817 Spondylosis without myelopathy or radiculopathy, lumbosacral region; M48.061 Spinal stenosis, lumbar region without neurogenic claudication
CPT/HCPCS: 72148

== ENCOUNTER 2019-12-12 12:28 | Outpatient (CLI) | payer BC ==
[2019-12-12 14:29] LABS: Albumin 4.3 g/dL (3.9-5); Calcium 9.2 mg/dL (8.4-10.2)
[2019-12-13 16:18] LABS: Chol/HDL Ratio 2.8 %
== END 2019-12-12 12:29 | disposition home or self-care (01) ==
LOC: LAB 12:28
DX: I10 Essential (primary) hypertension (principal); E11.9 Type 2 diabetes mellitus without complications
CPT/HCPCS: 36415; 80053; 80061; 83036

== ENCOUNTER 2020-01-03 14:46 | Outpatient (CLI) | payer BC ==
[2020-01-02 14:03] LABS: Hematocrit 34.1 % (30.3-42.9); Hemoglobin 11.2 gm/dl (10.1-14.3); Mean Corpuscular HGB Conc 33 % (30-34); Mean Corpuscular Volume 88 fl (79-97); Platelet Count 238 K/mm3 (140-440); Red Blood Count 3.87 M/mm3 (3.65-5.03); Red Cell Distribution Width 15.2 % (13.2-15.2)
--- NOTE | 2020-01-04 08:13 | Mammography Report ---
BILATERAL DIGITAL SCREENING MAMMOGRAM WITH CAD HISTORY: SCREENING MAMMO TECHNIQUE: Routine digital mammographic imaging performed. This examination was interpreted with grace stover benefit of Computer-aided Detection analysis. COMPARISON: 10/01/2018. FINDINGS: Breast Density: predominantly fatty breast parenchymal pattern. Digital CC and MLO views demonstrate no mammographic evidence of malignancy. A left slightly lateral central breast asymmetry on the CC view is stable. IMPRESSION: No mammographic evidence of malignancy. If the clinical examination remains stable, recommend bilate ral mammogram in approximately one year. BIRADS 2: Benign Finding(s). FURTHER INFORMATION: According to the [employer], yearly mammograms are recommend ed starting at age 40 and continuing as long as a woman is in good health. Clinical Breast Exams shou ld be part of a periodic health exam-about every 3 years for women in their 20s and 30s and every yea r for women 40 and over. Breast self exam is an option for women starting in their 20s. Any breast ch stephania noted on a breast self exam should be reported promptly to the patient's healthcare provider. Br east MRI is recommended for women with an approximately 20-25% or greater lifetime risk of breast can cer, including women with a strong family history of breast or ovarian cancer and women who have been treated for Hodgkin's disease. A negative Mammography report should not discourage follow up or biopsy of a clinically significant f inding and/or abnormality. Dense breast tissue may obscure small neoplasms. The patient will be entered into a reminder system with a target due date for the next screening mamm ogram. Signer Name: Haim Dee MD Signed: 01/04/2020 8:09 AM Workstation Name: [id number]
== END 2020-01-03 14:47 | disposition home or self-care (01) ==
LOC: MAMMO 14:46
PROVIDERS: ATTEND Family Medicine
DX: Z12.31 Encounter for screening mammogram for malignant neoplasm of breast (principal); D50.8 Other iron deficiency anemias
CPT/HCPCS: 36415; 77067; 82728; 82747; 85027

== ENCOUNTER 2020-01-25 07:34 | Outpatient (CLI) | payer BC ==
[2020-01-25 08:18] LABS: Bilirubin,Urine NEG (Negative); Blood,Urine NEG (Negative); Color,Urine Yellow (Yellow); Mucus,Urine FEW /HPF; Protein,Urine <15 mg/dL mg/dL (Negative); Urobilinogen,Urine < 2.0 mg/dL (<2.0); WBC,Urine < 1.0 /HPF (0.0-6.0)
[2020-01-25 08:46] LABS: Albumin 3.8 g/dL (3.9-5); Chol/HDL Ratio 3.17 %
== END 2020-01-25 07:35 | disposition home or self-care (01) ==
LOC: LAB 07:34
PROVIDERS: ATTEND Family Medicine
DX: Z00.00 Encounter for general adult medical examination without abnormal findings (principal)
CPT/HCPCS: 36415; 80053; 80061; 81001

== ENCOUNTER 2020-04-24 11:03 | Outpatient (CLI) | payer BC ==
[2020-04-24 11:35] LABS: Hematocrit 31.8 % (30.3-42.9); Hemoglobin 10.8 gm/dl (10.1-14.3); Mean Corpuscular HGB Conc 34 % (30-34); Mean Corpuscular Volume 87 fl (79-97); Platelet Count 216 K/mm3 (140-440); Red Blood Count 3.66 M/mm3 (3.65-5.03); Red Cell Distribution Width 14.9 % (13.2-15.2)
[2020-04-24 11:58] LABS: Albumin 4.1 g/dL (3.9-5)
[2020-04-24 13:15] LABS: Creatinine,Urine 87.3 mg/dL (0.1-20.0)
[2020-04-24 13:29] LABS: Protein/Creatinine Ratio,Urine 0.08
== END 2020-04-24 11:04 | disposition home or self-care (01) ==
LOC: LAB 11:03
PROVIDERS: ATTEND Internal Medicine
DX: E11.21 Type 2 diabetes mellitus with diabetic nephropathy (principal); R94.4 Abnormal results of kidney function studies; I10 Essential (primary) hypertension; E78.5 Hyperlipidemia, unspecified; K21.9 Gastro-esophageal reflux disease without esophagitis; N13.9 Obstructive and reflux uropathy, unspecified
CPT/HCPCS: 36415; 80053; 82570; 84156; 85027

== ENCOUNTER 2020-04-27 13:11 | Outpatient (CLI) | payer BC ==
--- NOTE | 2020-04-27 16:47 | Magnetic Resonance Report ---
MRI RIGHT KNEE WITHOUT CONTRAST INDICATION / CLINICAL INFORMATION: PAIN IN RIGHT KNEE. TECHNIQUE: Multiplanar, multisequence MR images were obtained. No contrast used. COMPARISON: None available. FINDINGS: MEDIAL MENISCUS: Diffuse degenerative tearing along the free edge with partial extrusion of the body. LATERAL MENISCUS: No significant abnormality. ACL: Mucoid degeneration, no acute finding. PCL: No significant abnormality. MCL: No significant abnormality. LCL: No significant abnormality. DISTAL IT BAND: No significant abnormality. POSTEROLATERAL CORNER: No significant abnormality. DISTAL QUADRICEPS TENDON: No significant abnormality. PATELLAR TENDON: No significant abnormality. PATELLOFEMORAL ALIGNMENT: Tibial tuberosity trochlear groove distance is mildly elevated at 1.8 cm (n ormal is 1.5 cm or less). There is prominence of the anterior process of the lateral femoral condyle and the patella is slightly perched laterally. ARTICULAR CARTILAGE: There is diffuse cartilage thinning with full-thickness cartilage loss along the weightbearing surfaces of the medial compartment. There is also full-thickness cartilage loss along the lateral trochlea and lateral patella. JOINT SPACE: Small effusion with synovitis. No significant popliteal cyst. Tricompartmental joint spa ce narrowing with osteophyte formation. BONES: No significant bone marrow edema. No fracture. No osseous lesion. SOFT TISSUES: No significant abnormality. ADDITIONAL FINDINGS: None. IMPRESSION: 1. Moderate tricompartmental degenerative changes greatest at the medial compartment where there is d iffuse free edge fraying of the lateral meniscus and full-thickness cartilage loss along both sides o f the joint with mild underlying subchondral cystic change. 2. Patellar maltracking, as above. There is associated full-thickness cartilage loss at the patellofe moral articulation laterally. 3. Small effusion with synovitis. Signer Name: Vu Aragon MD Signed: 04/27/2020 4:42 PM Workstation Name: [email or web address]
== END 2020-04-27 13:12 | disposition home or self-care (01) ==
LOC: XRAY 13:11
PROVIDERS: ATTEND Orthopaedic Surgery
DX: S83.241A Other tear of medial meniscus, current injury, right knee, initial encounter (principal); M17.11 Unilateral primary osteoarthritis, right knee; M25.461 Effusion, right knee; M65.861 Other synovitis and tenosynovitis, right lower leg; X58.XXXA Exposure to other specified factors, initial encounter; Y93.89 Activity, other specified; Y92.89 Other specified places as the place of occurrence of the external cause; Y99.8 Other external cause status
CPT/HCPCS: 73721

== ENCOUNTER 2020-05-25 11:51 | Outpatient (CLI) | payer BC ==
--- NOTE | 2020-05-25 14:53 | Magnetic Resonance Report ---
MRI right hip without IV contrast INDICATION / CLINICAL INFORMATION: Right hip pain without injury chronic and worsening right hip pain TECHNIQUE: Multiplanar, multisequence MR images were obtained. Routine MRI right hip without contrast COMPARISON: None available. FINDINGS: The bone marrow signal of the right hip is unremarkable. There is mild degenerative changes of the ri ght hip. There is a macerated tear involving the superior aspect of the labrum with minimal right hip effusion. There is no osteonecrosis of the right hip. There is mild tendinosis of the distal right gluteus medius tendon. No acute process is identified within the pelvis. The sacrum is intact and there is minimal degenerat ines changes within the SI joints. Incidentally there is mild tendinosis involving the common hamstrin g tendon IMPRESSION: 1. Mild early degenerative changes of the right hip with extensive irregularity of the superior labru m concerning for a prominent degenerative tear of the superior aspect of the labrum, probably subacut e or chronic. 2. No evidence of right hip osteonecrosis. 3. Mild to moderately developed tendinosis involving the common hamstring tendon near the right ischi um. 4. Mild degenerative changes of the right SI joint. Signer Name: Angel Nassar MD Signed: 05/25/2020 2:48 PM Workstation Name: [id number]
--- NOTE | 2020-05-25 14:55 | Magnetic Resonance Report ---
MRI of the left hip without contrast INDICATION / CLINICAL INFORMATION: pain in left hip. Worsening left hip pain without injury TECHNIQUE: Multiplanar, multisequence MR images were obtained. Routine MRI left hip obtained without IV contrast COMPARISON: None available. FINDINGS: MRI left hip. There is minimal to mild degenerative changes of the left hip. The labrum demonstrates some increased degenerative signal but otherwise no high-grade labral tear is identified. There is no osteonecrosis of the left hip. There is mild to moderate tendinosis involving the distal aspect of t he left gluteus medius tendon near the greater trochanteric attachment. There is a small bursa overly ing the left greater trochanter. The bone marrow signal of the left hip is grossly unremarkable. IMPRESSION: 1. Mild early degenerative changes of the left hip without evidence of high-grade labral tear. 2. Moderate tendinosis of the distal left gluteus medius tendon near the greater trochanteric attachm ent with small overlying bursal fluid collection, as above. 3. 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
== END 2020-05-25 11:52 | disposition home or self-care (01) ==
LOC: MRI 11:51
PROVIDERS: ATTEND Orthopaedic Surgery
DX: S71.011A Laceration without foreign body, right hip, initial encounter (principal); M16.0 Bilateral primary osteoarthritis of hip; M76.02 Gluteal tendinitis, left hip; M25.451 Effusion, right hip; M47.898 Other spondylosis, sacral and sacrococcygeal region; X58.XXXA Exposure to other specified factors, initial encounter; Y93.89 Activity, other specified; Y92.89 Other specified places as the place of occurrence of the external cause; Y99.8 Other external cause status
CPT/HCPCS: 73721

== ENCOUNTER 2020-08-17 10:24 | Outpatient (CLI) | payer BC ==
[2020-08-17 11:01] LABS: Basophils % (Auto) 0.7 % (0.0-1.8); Eosinophils # (Auto) 0.1 K/mm3 (0.0-0.4); Eosinophils % (Auto) 3.5 % (0.0-4.3); Hematocrit 32.4 % (30.3-42.9); Hemoglobin 10.8 gm/dl (10.1-14.3); Lymphocytes # (Auto) 1.3 K/mm3 (1.2-5.4); Lymphocytes % (Auto) 33.7 % (13.4-35.0); Mean Corpuscular HGB Conc 33 % (30-34); Mean Corpuscular Volume 89 fl (79-97); Monocytes # (Auto) 0.4 K/mm3 (0.0-0.8); Monocytes % (Auto) 10.7 % (0.0-7.3); Platelet Count 185 K/mm3 (140-440); Red Blood Count 3.67 M/mm3 (3.65-5.03); Red Cell Distribution Width 14.6 % (13.2-15.2)
[2020-08-17 11:21] LABS: Erythrocyte Sedimentation Rate 36 mm/Hr (0-20)
== END 2020-08-17 10:25 | disposition home or self-care (01) ==
LOC: LAB 10:24
PROVIDERS: ATTEND Orthopaedic Surgery
DX: M25.362 Other instability, left knee (principal)
CPT/HCPCS: 36415; 85025; 85652; 86140

== ENCOUNTER 2020-09-19 11:57 | Outpatient (CLI) | payer BC ==
[2020-09-19 15:02] LABS: Total Cells Counted 100 /mm3
== END 2020-09-19 11:58 | disposition home or self-care (01) ==
LOC: LAB 11:57
PROVIDERS: ATTEND Orthopaedic Surgery
DX: Z96.652 Presence of left artificial knee joint (principal)
CPT/HCPCS: 87102; 87116; 89051

== ENCOUNTER 2020-11-19 08:16 | Outpatient (CLI) | payer BC ==
[2020-11-19 08:56] LABS: Basophils % (Auto) 0.7 % (0.0-1.8); Eosinophils # (Auto) 0.1 K/mm3 (0.0-0.4); Eosinophils % (Auto) 1.6 % (0.0-4.3); Lymphocytes # (Auto) 1.4 K/mm3 (1.2-5.4); Lymphocytes % (Auto) 30.9 % (13.4-35.0); Mean Corpuscular HGB Conc 34 % (30-34); Mean Corpuscular Volume 86 fl (79-97); Monocytes # (Auto) 0.3 K/mm3 (0.0-0.8); Monocytes % (Auto) 7.4 % (0.0-7.3); Platelet Count 225 K/mm3 (140-440); Red Blood Count 3.71 M/mm3 (3.65-5.03); Red Cell Distribution Width 14.7 % (13.2-15.2)
[2020-11-19 09:15] LABS: Albumin 4.2 g/dL (3.9-5); Calcium 9.4 mg/dL (8.4-10.2); Chol/HDL Ratio 2.9 %
[2020-11-19 09:29] LABS: Free T4 (Free Thyroxine) 1.27 ng/dL (0.76-1.46)
[2020-11-19 10:58] LABS: Bilirubin,Urine NEG (Negative); Blood,Urine NEG (Negative); Color,Urine Yellow (Yellow); Protein,Urine <15 mg/dL mg/dL (Negative); RBC,Urine < 1.0 /HPF (0.0-6.0); Urobilinogen,Urine < 2.0 mg/dL (<2.0); WBC,Urine < 1.0 /HPF (0.0-6.0)
== END 2020-11-19 08:17 | disposition home or self-care (01) ==
LOC: LAB 08:16
DX: E11.65 Type 2 diabetes mellitus with hyperglycemia (principal); E78.1 Pure hyperglyceridemia
CPT/HCPCS: 36415; 80053; 80061; 81001; 82550; 84156; 84439; 84443; 85025

== ENCOUNTER 2020-12-06 06:42 | Outpatient (CLI) | payer BC ==
--- NOTE | 2020-12-06 09:58 | Mammography Report ---
DIGITAL SCREENING MAMMOGRAM WITH CAD, 12/06/2020 CLINICAL INFORMATION / INDICATION: Routine screening mammography. SCREENING MAMMOGRAM TECHNIQUE: Digital bilateral 2D mammography was obtained in the craniocaudal and mediolateral obliqu e projections. This examination was interpreted with the benefit of Computer-Aided Detection analysis . COMPARISON: 01/03/2020 FINDINGS: Breast Density: The breasts are almost entirely fatty. No dominant mass, suspicious calcifications, or architectural distortion in either breast. IMPRESSION: No mammographic evidence of malignancy. Follow up recommendation: Routine yearly BI-RADS Category 1: Negative. A "normal" or negative report should not discourage follow up or biopsy of a clinically significant f inding. A written summary of these findings will be mailed to the patient. The patient will be entered into a mammography reporting system which will generate a reminder letter for the patient's next appointmen t at the appropriate interval. The [employer] recommends yearly mammograms starting at age 40 and continuing as l lidia as a woman is in good health. Breast MRI is recommended for women with an approximate 20-25% or greater lifetime risk of breast cancer, including women with a strong family history of breast or ova john cancer or who have been treated for Hodgkin's disease. Signer Name: Greg Warner MD Signed: 12/06/2020 9:54 AM Workstation Name: [email or web address]
== END 2020-12-06 06:43 | disposition home or self-care (01) ==
LOC: MAMMO 06:42
PROVIDERS: ATTEND Family Medicine
DX: Z12.31 Encounter for screening mammogram for malignant neoplasm of breast (principal)
CPT/HCPCS: 77067

== ENCOUNTER 2020-12-31 11:27 | Outpatient (CLI) | payer BC ==
[2020-12-31 12:28] LABS: Basophils % (Auto) 0.6 % (0.0-1.8); Eosinophils # (Auto) 0.1 K/mm3 (0.0-0.4); Eosinophils % (Auto) 1.6 % (0.0-4.3); Hemoglobin 10.5 gm/dl (10.1-14.3); Lymphocytes # (Auto) 1.7 K/mm3 (1.2-5.4); Mean Corpuscular HGB Conc 33 % (30-34); Mean Corpuscular Volume 87 fl (79-97); Monocytes # (Auto) 0.4 K/mm3 (0.0-0.8); Monocytes % (Auto) 8.9 % (0.0-7.3); Platelet Count 200 K/mm3 (140-440); Red Blood Count 3.66 M/mm3 (3.65-5.03); Red Cell Distribution Width 15.1 % (13.2-15.2)
[2020-12-31 12:31] LABS: Bacteria,Urine 1+ /HPF (Negative); Bilirubin,Urine NEG (Negative); Blood,Urine NEG (Negative); Color,Urine Yellow (Yellow); Protein,Urine <15 mg/dL mg/dL (Negative); Urobilinogen,Urine < 2.0 mg/dL (<2.0)
[2020-12-31 12:37] LABS: INR 0.94 (0.87-1.13)
[2020-12-31 12:38] LABS: Partial Thromboplastin Time 27.3 Sec. (24.2-36.6); WBC,Urine < 1.0 /HPF (0.0-6.0)
[2020-12-31 13:03] LABS: Albumin 4.2 g/dL (3.9-5); Calcium 9.2 mg/dL (8.4-10.2)
--- NOTE | 2021-01-01 11:16 | Electrocardiograph Report ---
[facility] Test Date: 2020-12-31 Test Time: 12:34:16 Pat Name: WAGNER VELA Department: Room: Gender: F Bearingizer: [place] : 1960 Requested By: Yuliya TREJO Order Number: [id number] Reading MD: Jody Hercules Measurements Intervals [place] Rate: 49 P: 57 MI: 157 QRS: 19 QRSD: 106 T: 46 QT: 481 QTc: 434 Interpretive Statements Sinus bradycardia Probable left ventricular hypertrophy No previous ECG available for comparison Electronically Signed On 01-01-2021 11:16:11 EST by Jody Hercules
== END 2020-12-31 11:28 | disposition home or self-care (01) ==
LOC: LAB 11:27
DX: I10 Essential (primary) hypertension (principal); E78.2 Mixed hyperlipidemia; E11.9 Type 2 diabetes mellitus without complications; M10.9 Gout, unspecified
CPT/HCPCS: 36415; 80053; 81001; 85025; 85610; 85730; 87086; 93005

== ENCOUNTER 2021-01-04 14:47 | Outpatient (CLI) | payer BC | END 2021-01-04 14:48 | disposition home or self-care (01) | LOC: LAB 14:47 | PROVIDERS: ATTEND Orthopaedic Surgery | DX: Z22.322 Carrier or suspected carrier of Methicillin resistant Staphylococcus aureus (principal) | CPT/HCPCS: 87641 ==

== ENCOUNTER 2021-01-14 12:00 | Inpatient (IN) | payer BC ==
--- NOTE | 2021-01-09 09:33 | Anesthesia Consultation ---
Anesthesia Consult and Med Hx Date of service: 01/14/21 - Airway Anesthetic Teeth Evaluation: Caps, Crowns, Partials ROM Head & Neck: Adequate Mental/Hyoid Distance: Adequate Mallampati Class: Class I Intubation Access Assessment: Good - Pre-Operative Health Status ASA Pre-Surgery Classification: ASA3 Proposed Anesthetic Plan: Spinal (GA if needed) Nerve Block: AC - Pulmonary Hx Smoking: No Hx Sleep Apnea: Yes (DX SLEEP APNEA WITH CPAP USE.) - Cardiovascular System Hx Hypertension: Yes (X 22 YRS. LVH) Hx Heart Attack/AMI: No (Can climb two flights of stairs) - Central Nervous System Hx Back Pain: Yes (WITH KEMI HIP PAIN. HNP gets injections) Hx Psychiatric Problems: No - Gastrointestinal Hx Gastroesophageal Reflux Disease: Yes - Endocrine Hx Non-Insulin Dependent Diabetes: Yes - Hematic Hx Anemia: Yes - Other Systems Hx Cancer: No - Additional Comments Anesthesia Medical History Comments: Medical clearance done and not on chart. Will see vascular tomorrow-had PE at 22 y/o because of OCP.
[~2021-01-14 12:00] MED LIST changes: +ACETAMINOPHEN 500 MG TAB PO NR; +CELECOXIB 200 MG CAP PO NR; -FLAGYL 500 MG/100 ML 500 MG/100 ML BAG IV NR; +GABAPENTIN 300 MG CAP PO NR; +LACTATED RINGERS 1,000 ML IV SCH; +MAGNESIUM OXIDE 400 MG TAB PO NR; +MIDAZOLAM 2 MG/2 ML INJ IV NR; +fentaNYL 100 MCG/2 ML INJ IV NR
[2021-01-16] MEDS ORDERED: LACTATED RINGERS 1,000 ML IV SCH (06:00)
[2021-01-16] MEDS ORDERED: fentaNYL 100 MCG/2 ML INJ IV NR (06:00)
[2021-01-16] MEDS ORDERED: ceFAZolin/STERILE WATER 2 GM/20 ML SYRINGE IV NR (06:00)
[2021-01-16] MEDS ORDERED: CELECOXIB 200 MG CAP PO NR (06:00)
[2021-01-16] MEDS ORDERED: SODIUM CHLORIDE 0.9% 500 ML 500 ML IV NR (06:00)
[2021-01-16] MEDS ORDERED: ACETAMINOPHEN 500 MG TAB PO NR (06:00)
[2021-01-16] MEDS ORDERED: MAGNESIUM OXIDE 400 MG TAB PO NR (06:00)
[2021-01-16] MEDS ORDERED: MIDAZOLAM 2 MG/2 ML INJ IV NR (06:00)
[2021-01-16] MEDS: GABAPENTIN 300 MG CAP PO NR ×2 (06:30→20:44)
[2021-01-16] MEDS ORDERED: BUPIVACAINE/PF (0.25%) 2.5 MG/ML 30 ML VIAL INFILTRATI ONE ×3 (07:18→10:32)
[2021-01-16] MEDS ORDERED: dexAMETHasone 20 MG/5 ML VIAL ONE (07:19)
[2021-01-16] MEDS ORDERED: LIDOCAINE PF 100 MG/5 ML (CARDIAC SYRINGE) IV ONE (07:19)
[2021-01-16] MEDS ORDERED: ONDANSETRON 4 MG/2 ML INJ ONE (07:19)
[2021-01-16] MEDS ORDERED: fentaNYL 100 MCG/2 ML INJ ONE (07:20)
[2021-01-16] MEDS ORDERED: propofoL 200 MG/20 ML VIAL IV ONE (07:20)
[2021-01-16] MEDS ORDERED: KETAMINE/STERILE WATER 50 MG/ML SYRINGE ONE (07:21)
[2021-01-16] MEDS ORDERED: dexAMETHasone 4 MG/ML VIAL ONE (07:21)
[2021-01-16] MEDS ORDERED: ROCURONIUM 50 MG/5 ML INJ IV ONE ×2 (07:27→09:54)
[2021-01-16] MEDS ORDERED: KETOROLAC 30 MG/1 ML INJ ONE (07:28)
[2021-01-16] MEDS ORDERED: POLYMYXIN B SULFATE 500,000 UNIT VIAL IV ONE ×2 (07:29→10:34)
[2021-01-16] MEDS ORDERED: SODIUM CHLORIDE 0.9% 0 ML ONE (07:29)
[2021-01-16] MEDS ORDERED: SODIUM CHLORIDE P/F VIAL 10 ML 20 ML ONE ×2 (07:35→10:05)
[2021-01-16] MEDS ORDERED: VANCOMYCIN 1000 MG INJ ONE (07:35)
[2021-01-16] MEDS ORDERED: CHLOROPROCAINE 20 MG/1 ML INJ 20 ML INFILTRATI ONE (07:44)
[2021-01-16] MEDS ORDERED: ONDANSETRON 4 MG/2 ML INJ IV PRN ×3 (07:55→15:00)
[2021-01-16] MEDS ORDERED: oxyCODONE /ACETAMINOPHEN 5-325MG TAB PO PRN (07:55)
--- NOTE | 2021-01-16 07:55 | Anesthesia Day of Surgery ---
Anesthesia Day of Surgery - Day of Surgery Patient Examined: Yes Patient H&P Reviewed: Yes Patient is NPO: Yes
[2021-01-16] MEDS ORDERED: VANCOMYCIN/NS 1 GM/250 ML 1 GM/250 ML BAG IV NR (08:00)
[2021-01-16] MEDS ORDERED: VANCOMYCIN 1,500 MG in SODIUM CHLORIDE 0.9% 500 ML 500 ML IV ONE (08:00)
[2021-01-16] MEDS ORDERED: OXYCHLOROSENE 2 GM POWDER IR ONE ×2 (08:19→11:20)
[2021-01-16] MEDS ORDERED: TRANEXAMIC ACID 1,000 MG/10 ML ONE (08:59)
[2021-01-16] MEDS ORDERED: BUPIVACAINE/PF (0.25%) 2.5 MG/ML 10 ML VIAL INFILTRATI ONE ×2 (10:02→10:32)
[2021-01-16] MEDS ORDERED: SODIUM CHLORIDE 0.9% IRR 1,500 ML BOTTLE IR ONE (10:32)
[2021-01-16] MEDS ORDERED: VANCOMYCIN 1,000 MG/20 ML IV ONE (10:33)
[2021-01-16] MEDS ORDERED: SODIUM CHLORIDE 0.9% P/F 10 ML VIAL INFILTRATI ONE (10:35)
[2021-01-16] MEDS ORDERED: WATER FOR IRRIG STERILE 1,500 ML BOTTLE IR ONE (11:58)
[2021-01-16] MEDS ORDERED: TIZANIDINE HCL 4 MG PO PRN (13:21)
--- NOTE | 2021-01-16 13:21 | History and Physical Report ---
History of Present Illness Date of admission: 01/16/21 06:59 Chief complaint: My knees hurt History of present illness: 60 YO Female with HTN, Obesity Hypoventilation Syndrome, GERD, DM, LDD, Anemia, OA, Chronic Pain Syndrome admitted for knee pain. Patient admitted directly at the request of Dr. Stallings. Patient found to have severe osteoarthritis in need of orthopedic surgery. Patient has fever, chills, chest pain, palpitation, productive cough, skin rash, recent contact, known exposure to COVID-19. No prior admission for review. All medication listed at time of admission has been reconciled. Advanced care planning conducted. Past History Past Medical History: arthritis, diabetes, GERD, hypertension Past Surgical History: total knee replacement Social history: . denies: smoking, alcohol abuse Family history: diabetes, hypertension Medications and Allergies Allergies Allergy/AdvReac Type Severity Reaction Status Date / Time atorvastatin [From Lipitor] Allergy MUSCLE PAIN Verified 10/08/18 11:23 Iodinated Contrast Media Allergy Hives Verified 08/28/18 11:42 [Iodinated Contrast- Oral and IV Dye] lamivudine [From Combivir] Allergy MUSCLE Verified 10/08/18 11:23 WEAKNESS ramipril [From Altace] Allergy ORAL Verified 10/08/18 11:38 SWELLING sitagliptin [From Janumet] Allergy MUSCLE Verified 10/08/18 11:38 WEAKNESS zidovudine [From Combivir] Allergy MUSCLE Verified 10/08/18 11:38 WEAKNESS amoxicillin [From Augmentin] AdvReac GI UPSET , Verified 01/08/21 13:38 ABD PAIN clavulanic acid AdvReac GI UPSET Verified 10/08/18 11:38 [From Augmentin] ibuprofen AdvReac DECREASED Verified 10/08/18 11:39 RENAL FUNCTION Alcatqc-FYB-YiI Reductase AdvReac MUSCLE Verified 01/08/21 13:38 Inhibitor CRAMPS Home Medications Medication Instructions Recorded Confirmed Last Taken Type Cetirizine HCl [ZyrTEC 10mg cap] 10 mg PO DAILY 10/08/18 01/08/21 10/12/18 06:00 History Fluticasone [Flonase] 1 spray NS PRN PRN 10/08/18 01/08/21 10/17/18 06:00 History Iron Fum,Ps/Folic/Bcomp,C No.9 1 each PO DAILY 10/08/18 01/08/21 10/17/18 06:00 History [Folivane-Plus Capsule] L. Acidophilus/Pectin, Emmons 1 each PO DAILY 10/08/18 01/08/21 10/16/18 06:00 History [Acidophilus Probiotic Capsule] Lansoprazole [Prevacid] 30 mg PO DAILY 10/08/18 01/08/21 10/18/18 06:00 History Losartan/Hydrochlorothiazide 1 each PO DAILY 10/08/18 01/08/21 10/18/18 06:00 History [Losartan-Hctz 100-25 mg Tab] Tamsulosin [Flomax] 0.4 mg PO QDAY 10/08/18 01/08/21 10/17/18 21:30 History Tizanidine HCl [Zanaflex 4mg CAP] 4 mg PO PRN PRN 10/08/18 01/08/21 10/16/18 21:00 History amLODIPine 5 mg PO DAILY 10/08/18 01/08/21 Unknown History traMADoL [Ultram 50 MG tab] 50 mg PO Q4HR PRN #120 tablet 04/20/19 01/08/21 Unknown Rx Cyclobenzaprine [Flexeril] 10 mg PO QHS PRN #10 tablet 09/01/19 01/08/21 Unknown Rx metFORMIN [Glucophage] 500 mg PO QDAY 01/08/21 01/08/21 Unknown History Active Meds: Active Medications Acetaminophen (Acetaminophen 500 Mg Tab) 1,000 mg PO ONCE@0600 NR Stop: 01/16/21 20:00 Last Admin: 01/16/21 09:25 Dose: Not Given Documented by: Cefazolin Sodium (Cefazolin/Sterile Water 2 Gm/20 Ml Syringe) 2 gm IV PREOP NR Stop: 01/16/21 20:00 Fentanyl (Fentanyl 100 Mcg/2 Ml Inj) 100 mcg IV ONCE NR Stop: 01/16/21 20:00 Last Admin: 01/16/21 07:39 Dose: 100 mcg Documented by: Gabapentin (Gabapentin 300 Mg Cap) 300 mg PO PREOP NR Stop: 01/16/21 20:00 Last Admin: 01/16/21 06:30 Dose: 300 mg Documented by: Hydromorphone HCl (Hydromorphone 1 Mg/1 Ml Inj) 0.5 mg IV Q10MIN PRN PRN Reason: Pain , Severe (7-10) Stop: 01/16/21 23:00 Lactated Ringer's (Lactated Ringers) 1,000 mls @ 125 mls/hr IV DIRECT GIAN Stop: 01/16/21 20:00 Last Admin: 01/16/21 07:00 Dose: 125 mls/hr Documented by: Sodium Chloride (Nacl 0.9% 500 Ml) 500 mls @ 0 mls/hr IV ONCE NR Stop: 01/16/21 20:00 Magnesium Oxide (Magnesium Oxide 400 Mg Tab) 400 mg PO ONCE NR Stop: 01/16/21 20:00 Last Admin: 01/16/21 06:30 Dose: 400 mg Documented by: Midazolam HCl (Midazolam 2 Mg/2 Ml Inj) 2 mg IV PREOP NR Stop: 01/16/21 20:00 Last Admin: 01/16/21 07:39 Dose: 2 mg Documented by: Review of Systems Constitutional: no weight loss, no weight gain, no fever, no chills Ears, nose, mouth and throat: no ear pain, no tinnitis, no decreased hearing, no nose pain, no nasal congestion Cardiovascular: no chest pain, no palpitations, no edema, no syncope Respiratory: no cough, no excessive sputum, no shortness of breath Gastrointestinal: no abdominal pain, no vomiting, no constipation, no hematemesis Genitourinary Female: no pelvic pain, no flank pain, no dysuria, no urinary frequency, no urgency Rectal: no pain Musculoskeletal: no neck pain, no shooting arm pain, no low back pain, no shooting leg pain Integumentary: no rash, no sores, no jaundice, no boils Neurological: no head injury, no weakness, no numbness, no tingling, no syncope Psychiatric: no anxiety, no change in sleep habits, no hypersomnia Endocrine: no cold intolerance, no polyphagia, no polyuria, no nocturia Exam - Constitutional Vitals: Temp Pulse Resp BP Pulse Ox 98.1 F 70 18 138/80 100 01/16/21 06:30 01/16/21 08:25 01/16/21 08:39 01/16/21 08:25 01/16/21 08:25 General appearance: Present: mild distress, obese - EENT Eyes: Present: PERRL ENT: hearing intact, clear oral mucosa - Neck Neck: Present: supple, normal ROM - Respiratory Respiratory effort: normal Respiratory: bilateral: CTA - Cardiovascular Heart Sounds: Present: S1 & S2. Absent: rub, click - Extremities Extremities: pulses symmetrical, No edema Peripheral Pulses: within normal limits - Abdominal General gastrointestinal: Present: soft, non-tender, non-distended, normal bowel sounds Female genitourinary: Present: normal - Integumentary Integumentary: Present: clear, warm, dry - Musculoskeletal Musculoskeletal: gait normal, strength equal bilaterally - Psychiatric Psychiatric: appropriate mood/affect, intact judgment & insight - Neurologic Neurologic: CNII-XII intact, moves all extremities Results - Labs CBC & Chem 7: 01/16/21 15:23 01/16/21 15:23 Labs: Abnormal lab results 01/16/21 Range/Units 06:40 Crossmatch See Detail Assessment and Plan - Patient Problems (1) Hypertension Current Visit: Yes Status: Acute Qualifiers: Hypertension type: primary hypertension Qualified Code(s): I10 - Essential (primary) hypertension Plan to address problem: Monitor blood pressure every shift, continue medical management. (2) GERD (gastroesophageal reflux disease) Current Visit: Yes Status: Acute Qualifiers: Esophagitis presence: without esophagitis Qualified Code(s): K21.9 - Gastro-esophageal reflux disease without esophagitis Plan to address problem: PPI therapy, supportive care, (3) Obesity hypoventilation syndrome Current Visit: Yes Status: Acute Plan to address problem: Balanced diet, increase physical activity discharge, outpatient pulmonary follow-up for sleep study. (4) Osteoarthritis Current Visit: Yes Status: Acute Plan to address problem: Patient pending surgical intervention, supportive care, pain control, physical therapy consulted. (5) History of DVT (deep vein thrombosis) Current Visit: Yes Status: Acute Plan to address problem: Continue therapeutic anticoagulation. (6) DVT prophylaxis Current Visit: Yes Status: Acute Plan to address problem: SCD bilateral lower extremities while in bed, continue therapeutic anticoagulation (7) Advance care planning Current Visit: Yes Status: Acute Plan to address problem: Disease education conducted, care plan discussed, diagnoses discussed, patient is full code, care plan discussed. Patient knowledges understanding agree with care plan.
[2021-01-16] MEDS ORDERED: ceFAZolin/NS 1 GM/50 ML 1 GM/50 ML BAG IV SCH (14:00)
[2021-01-16] MEDS: HYDROmorphone 1 MG/1 ML INJ IV PRN ×2 (14:00→14:10)
[2021-01-16] MEDS ORDERED: MAGNESIUM HYDROXIDE (MOM) ORAL LIQD UDC PO PRN (14:00)
--- NOTE | 2021-01-16 14:39 | XRay Report ---
INTRAOPERATIVE FLUOROSCOPY: LEFT KNEE INDICATION / CLINICAL INFORMATION: LT KNEE INSTABILITY/LT KNEEE REVISION. TECHNIQUE: Intraoperative spot images were obtained during the procedure. FINDINGS: Images show a left knee arthroplasty revision See operative/procedure note by performing physician for full details. Fluoroscopy Time: 2 seconds. Fluoroscopy Images: 2. Signer Name: Eliezer Diallo MD Signed: 01/16/2021 2:34 PM Workstation Name: [id number]
--- NOTE | 2021-01-16 15:00 | XRay Report ---
LEFT KNEE 2 VIEWS INDICATION: POSTOP KNEE REVISION LEFT SIDE. COMPARISON: 08/04/2018 IMPRESSION: Left knee replacement revision has been performed. The hardware appears well applied wi th normal articulation at the joint. Signer Name: Drew Calvert Jr, MD Signed: 01/16/2021 2:55 PM Workstation Name: [id number]
--- NOTE | 2021-01-16 15:18 | Post Anesthesia Evaluation ---
- Post Anesthesia Evaluation Patient Participated: Yes Airway Patent: Yes Stable Respiratory Function: Yes Nausea/Vomiting: No Temp > 96.8F: Yes Pain Manageable: Yes Adequeate Hydration: Yes Anesthesia Complications: No
[2021-01-16] MEDS ORDERED: ALBUTEROL 2.5 MG/3 ML NEBU IH PRN (16:00)
[2021-01-16 16:08] LABS: Hemoglobin 9.6 gm/dl (10.1-14.3); Mean Corpuscular HGB Conc 32 % (30-34); Mean Corpuscular Volume 88 fl (79-97); Platelet Count 206 K/mm3 (140-440); Red Blood Count 3.41 M/mm3 (3.65-5.03); Red Cell Distribution Width 16.2 % (13.2-15.2)
--- NOTE | 2021-01-16 16:17 | Operative Report ---
DATE OF SURGERY: 01/16/2021 SURGEON: Tushar Munoz M.D. [employer] MACHINE OPERATOR: Mike Bettencourt, operative tech. PREOPERATIVE DIAGNOSIS: Instability of the left knee joint, status post total knee arthroplasty. POSTOPERATIVE DIAGNOSES: 1. Gross instability of the left knee joint. 2. Minimal subsidence of the tibial component. COMPLICATIONS: None. ESTIMATED BLOOD LOSS: Less than 100 mL. IMPLANTS USED: [employer] Legion Oxinium femoral component, size 3 left side supplemented with 14 x 120 mm stem. Tibial tray, size 2 left side supplemented with 10 x 80 mm stem. Legion highly cross-linked posterior stabilized poly cross-linked polyethylene insert, size 13 mm. Cement pedicles are +3. PROCEDURE PERFORMED: 1. Revision left knee arthroplasty, revision of both femoral and tibial component, complex. 2. Removal of femoral and tibial component and cemented cruciate retaining prosthesis. 3. Synovial biopsy, soft tissue biopsy and culture. A synovial fluid sent for cell count, diff, aerobic and anaerobic. SPECIMENS REMOVED: 1. Synovial tissue for tissue culture and sensitivity. 2. Left knee synovial tissue biopsy for pathology. 3. Synovial fluid for cell count, diff, aerobic and anaerobic culture, AFB and fungal culture. 4. Culture swab, left knee joint. Three samples of aerobic and anaerobic cultures. BRIEF HISTORY: The patient had a total knee arthroplasty done by another physician and is extremely painful. The knee tended to give out significantly and tended to fall. The knee was very unstable on exam. Tried and failed conservative treatment and elected for revision knee arthroplasty. Procedure, risks, and benefits discussed. Informed consent was obtained, brought to the hospital for the above procedure. She is going to follow up in her postoperative care with Dr. Lindsey at [facility] and has been discussed with the patient and the physician preoperatively. DETAILS OF THE OPERATIVE REPORT: The patient was taken to the operating room. After smooth and anesthesia, all the bony prominences were carefully padded. Left knee and left lower extremity prepped and draped in sterile fashion. Leg elevated, Esmarch were used, tourniquet inflated to 300 mmHg. The patient was given a 2 gram Ancef half an hour before the procedure along with a gram of TXA. She also received a gram of vancomycin an hour and a half before the procedure. Once the leg was elevated, Esmarch used, tourniquet inflated to 300 mmHg. Longitudinal incision made over the anterior aspect of the knee. The previous incision was used to make the approach, extended 2-3 cm proximally and distally to get a good tissue plane. The extensor mechanism was exposed. Medial parapatellar arthrotomy performed. Noted significant scar tissue underneath the extensor mechanism, which was removed. Synovial fluid, clear looking was sent for testing as noted above. The necessary release was performed on the proximal medial tibia and the gutters to release the scar tissue and get the Z retractors in place to protect the collateral ligament. Noticed significant laxity of the ligament. Necessary video of the knee was done before the knee was prepped and draped. The PCL also was lax and incompetent intraoperatively. We decided to remove the polyethylene liner given the significant laxity of the knee and more so in flexion and did revision of the knee components. The minimal subsidence of the tibial prosthesis was also noticed with bone overhanging on the anterior and lateral aspect of the tibia. Using micro saw, flexible osteotome and a pencil tip bur, the femoral component was removed in a meticulous fashion without any bone loss. A similar thing was performed on the tibial side with meticulous technique and using a flexible osteotome and micro saw. The tibial components were removed without any significant bone loss. The patella seemed to be very well fixed and the remaining bone on the patella was close to 10-12 mm and could jeopardize and increase risk of fracture in her case for the patella. The patella seemed to be in reasonable position and was well fixed. Once the implants were removed, cultures were again taken as well. We noticed the patient based on the preoperative planning and intraop, and the patient had significant medial translation of the proximal tibia and as compared to the diaphysis given the best optimal rotation, the sizing and the coverage to prevent any intraoperative complication, a size 2 seemed to be the great fit and this was supplemented with a 10 x 80 mm stem all in total from the baseplate. Next, reinstrumentation like reaming and burs were performed on the tibial side for the implants to be placed in the best optimal position possible to prevent any intraoperative complication/fracture given the significant medialization of the proximal tibia. Once a tibial platform was created from the intramedullary reamer, was placed on the tibial side. A freshen up cut was made to get the cut surface perpendicular. ____ the bone on the lateral side of the tibia was removed, which was overgrowth before the surgery. Clean cephalad platform was achieved, and the tibia was prepared for the baseplate. Size 2 seemed to be appropriate fit with best coverage possible with proper external rotation with the use of a 10 x 80 stem from the baseplate. Necessary platform was created. Once this was done, the femoral sizing was performed. Size 3 seemed to be a good fit. There was no ____ offset on the femoral side. Proper freshen up cuts were made to make sure the femur was placed in proper external rotation. Noticed the previous femur was mildly internally rotated. Proper external rotation was achieved by ____ chamfer cuts were performed based off the intramedullary antonia on the femoral side. Trial femur was placed. Size 3 left side with a 14 x 120 stem seemed to be great fit and the 3 landmarks were marked. We had appropriate positioning of the joint line based off the epicondyles and the patella. The size 13 gave us stable in flexion, full extension, 120 degrees flexion. Knee was stable throughout range of motion. The patellar tracking was central. Next, intra-fluoroscopic pictures were taken and deemed to be acceptable. We decided to go with the real component. We had a 2-hour tourniquet and the tourniquet was deflated at that time. The necessary trialing was finished and after half an hour or so, once we were ready with the cement, the tourniquet was again inflated. Thorough washing the knee area with antibiotic-soaked normal saline, followed by normal saline and the cementing of the knee was performed. Two bags of cement was used on the femoral and tibial side. Both tibia was cemented in proper position, proper external rotation, impacted in place. Excess cement was removed. Femur cemented in proper position, proper external rotation, impacted in place. Excess cement was removed. A trial liner was then placed. Once the cement was hardened, the real tibial articulating surface was implanted. The pain cocktail was injected into the periarticular tissue around the knee. Then, we had full extension, full flexion, stable throughout range of motion and the knee patella tracked central with no signs of instability at all. The tourniquet released, hemostasis achieved. No active bleeding or as such. Arthrotomy was closed with a combination of #2 Ethibond and a 0 Vicryl suture. Subcutaneous tissue was closed with 0, 2-0 Vicryl interrupted sutures. Skin was closed with Monocryl. Aquacel dressing done and a dressing was reinforced with 4 x 4, ABD, cast padding, Juanito wrap and a knee brace was applied. The patient tolerated the procedure well and shifted to recovery in stable condition. Sponge and needle count was correct. TID: [id number] RECEIPT: [id number] BRANDY/TOMER/LEONA
[2021-01-16 16:21] LABS: INR 0.9 (0.87-1.13); Partial Thromboplastin Time 25.4 Sec. (24.2-36.6)
[2021-01-16] MEDS: oxyCODONE /ACETAMINOPHEN 5-325MG TAB PO PRN (17:07)
[2021-01-16] MEDS: GABAPENTIN 300 MG CAP PO SCH ×2 (17:08→22:23)
[2021-01-16 17:30] LABS: Total Cells Counted 50 /mm3
[2021-01-16] MEDS: HYDROcodone/ACETAMINOPHEN 7.5-325MG TAB PO PRN (20:38)
[2021-01-16] MEDS: CYCLOBENZAPRINE 10 MG TAB PO PRN (20:42)
[2021-01-16] MEDS: DOCUSATE SODIUM 100 MG CAP PO SCH (21:00)
[2021-01-16] MEDS: APIXABAN 2.5 MG TAB PO SCH (21:01)
[2021-01-16] MEDS: BENZOCAINE/MENTHOL LOZENGE MM PRN (22:09)
[2021-01-16] MEDS: FLUTICASONE PROPIONATE NASAL SPRAY 16 GM NS PRN (22:10)
[2021-01-17] MEDS: HYDROmorphone 1 MG/1 ML INJ IV PRN ×2 (00:16→12:52)
[2021-01-17 05:15] LABS: Hematocrit 26.8 % (30.3-42.9); Hemoglobin 8.6 gm/dl (10.1-14.3)
[2021-01-17] MEDS: BENZOCAINE/MENTHOL LOZENGE MM PRN (05:29)
[2021-01-17] MEDS: GABAPENTIN 300 MG CAP PO SCH ×3 (05:30→21:12)
[2021-01-17 05:41] LABS: Calcium 7.9 mg/dL (8.4-10.2)
[2021-01-17] MEDS: metFORMIN 500 MG TAB PO SCH (09:27)
--- NOTE | 2021-01-17 09:29 | Progress Note ---
Assessment and Plan Assessment and plan: (1) Hypertension Current Visit: Yes Status: Acute Qualifiers: Hypertension type: primary hypertension Qualified Code(s): I10 - Essential (primary) hypertension Plan to address problem: Monitor blood pressure every shift, continue medical management. (2) GERD (gastroesophageal reflux disease) Current Visit: Yes Status: Acute Qualifiers: Esophagitis presence: without esophagitis Qualified Code(s): K21.9 - Gastro-esophageal reflux disease without esophagitis Plan to address problem: PPI therapy, supportive care, (3) Obesity hypoventilation syndrome Current Visit: Yes Status: Acute Plan to address problem: Balanced diet, increase physical activity discharge, outpatient pulmonary follow-up for sleep study. (4) Osteoarthritis Current Visit: Yes Status: Acute Plan to address problem: Patient pending surgical intervention, supportive care, pain control, physical therapy consulted. (5) History of DVT (deep vein thrombosis) Current Visit: Yes Status: Acute Plan to address problem: Continue therapeutic anticoagulation. (6) DVT prophylaxis Current Visit: Yes Status: Acute Plan to address problem: SCD bilateral lower extremities while in bed, continue therapeutic anticoagulation (7) Advance care planning Current Visit: Yes Status: Acute Plan to address problem: Disease education conducted, care plan discussed, diagnoses discussed, patient is full code, care plan discussed. Patient knowledges understanding agree with care plan. 01/17/21 Patient s/p left knee arthroplasty yesterday. She is doing well. Minimal pain left knee. PT to see. History Interval history: Patient had left knee arthroplasty yesterday Mild pain surg site No fever Hospitalist Physical - Physical exam Narrative exam: en: Not in acute distress, obese, lying in bed HEENT: Normocephalic, atraumatic Neck: supple, no JVD Lungs: Clear to auscultation, no rales, no wheeze Heart:S1 and S2 reg, no murmurs, rubs or gallop Abd: soft, non-tender,non-distended, normal bowel sounds Ext: Left knee covered with dressing , knee brace Neuro:Awake,alert - Constitutional Vitals: Temp Pulse Resp BP Pulse Ox 98.8 F 84 18 107/62 98 01/17/21 08:05 01/17/21 08:05 01/17/21 08:05 01/17/21 08:05 01/17/21 08:05 General appearance: Present: obese Results - Labs CBC & Chem 7: 01/17/21 04:47 01/17/21 04:47 Labs: Laboratory Last Values WBC 7.5 K/mm3 (4.5-11.0) 01/16/21 15:23 RBC 3.41 M/mm3 (3.65-5.03) L 01/16/21 15:23 Hgb 8.6 gm/dl (10.1-14.3) L 01/17/21 04:47 Hct 26.8 % (30.3-42.9) L 01/17/21 04:47 MCV 88 fl (79-97) 01/16/21 15:23 MCH 28 pg (28-32) 01/16/21 15:23 MCHC 32 % (30-34) 01/16/21 15:23 RDW 16.2 % (13.2-15.2) H 01/16/21 15:23 Plt Count 206 K/mm3 (140-440) 01/16/21 15:23 PT 13.2 Sec. (12.2-14.9) 01/16/21 15:23 INR 0.90 (0.87-1.13) 01/16/21 15:23 APTT 25.4 Sec. (24.2-36.6) 01/16/21 15:23 Sodium 137 mmol/L (137-145) 01/17/21 04:47 Potassium 4.4 mmol/L (3.6-5.0) 01/17/21 04:47 Chloride 101.1 mmol/L (98-107) 01/17/21 04:47 Carbon Dioxide 22 mmol/L (22-30) 01/17/21 04:47 Anion Gap 18 mmol/L 01/17/21 04:47 BUN 19 mg/dL (7-17) H 01/17/21 04:47 Creatinine 1.3 mg/dL (0.6-1.2) H 01/17/21 04:47 Estimated GFR 51 ml/min 01/17/21 04:47 BUN/Creatinine Ratio 15 % 01/17/21 04:47 Glucose 143 mg/dL (65-100) H 01/17/21 04:47 POC Glucose 144 mg/dL (70-105) H 01/16/21 13:51 Calcium 7.9 mg/dL (8.4-10.2) L 01/17/21 04:47 Fluid Type Synovial 01/16/21 Unknown Fluid Color Colorless 01/16/21 Unknown Fluid Appearance Clear 01/16/21 Unknown Fluid WBC 733977 /mm3 01/16/21 Unknown Fluid RBC [id number] /mm3 01/16/21 Unknown Fluid Seg Neutrophils 0 % 01/16/21 Unknown Fluid Lymphocytes 48.0 % 01/16/21 Unknown Fluid Reactive Lymphs 0 % 01/16/21 Unknown Fluid Monocytes 52.0 % 01/16/21 Unknown Fluid Eosinophils 0 % 01/16/21 Unknown Fluid Basophils 0 % 01/16/21 Unknown Coronavirus (PCR) Negative (Negative) 01/09/21 08:40 Blood Type A POSITIVE 01/16/21 06:40 Antibody Screen Negative 01/16/21 06:40 Crossmatch See Detail 01/16/21 06:40 Collier/IV: Voiding Method Bedpan Active Medications - Current Medications Current Medications: Generic Name Dose Route Start Last Admin Trade Name Freq PRN Reason Stop Dose Admin Acetaminophen 650 mg 01/16/21 14:00 Acetaminophen 325 Mg Tab PO Q4H PRN Pain MILD(1-3)/Fever >100.5/DELACRUZ Hydrocodone Bitart/Acetaminophen 1 each 01/16/21 14:00 01/16/21 20:38 Hydrocodone/Acetaminophen 7.5-325mg Tab PO 1 each Q4H PRN Administration Pain, Moderate (4-6) Albuterol 2.5 mg 01/16/21 16:00 Albuterol 2.5 Mg/3 Ml Nebu IH Q4HRT PRN Shortness Of Breath Amlodipine Besylate 5 mg 01/17/21 10:00 Amlodipine 5 Mg Tab PO DAILY GIAN Apixaban 2.5 mg 01/16/21 22:00 01/16/21 21:01 Apixaban 2.5 Mg Tab PO 2.5 mg Q12HR GIAN Administration Protocol Benzocaine/Menthol 1 each 01/16/21 21:06 01/17/21 05:29 Benzocaine/Menthol Lozenge MM 1 each Q2HR PRN Administration Sore Throat Cetirizine HCl 10 mg 01/17/21 10:00 Cetirizine 10 Mg Tab PO DAILY [facility] Cyclobenzaprine HCl 10 mg 01/16/21 22:00 01/16/21 20:42 Cyclobenzaprine 10 Mg Tab PO 10 mg QHS PRN Administration Muscle Spasm Docusate Sodium 100 mg 01/16/21 22:00 01/16/21 21:00 Docusate Sodium 100 Mg Cap PO 100 mg BID GIAN Administration Fluticasone Propionate 50 mcg 01/16/21 13:21 01/16/21 22:10 Fluticasone Propionate Nasal [place] 16 Gm NS 50 mcg PRN PRN Administration Allergy Symptoms Gabapentin 300 mg 01/16/21 14:00 01/17/21 05:30 Gabapentin 300 Mg Cap PO 300 mg Q8HR GIAN Administration Hydrochlorothiazide 25 mg 01/17/21 10:00 Hydrochlorothiazide 25 Mg Tab PO QDAY [facility] Hydromorphone HCl 0.5 mg 01/16/21 14:00 01/17/21 00:16 Hydromorphone 1 Mg/1 Ml Inj IV 0.5 mg Q3H PRN Administration Pain , Severe (7-10) Lactobacillus Acidophilus 1 each 01/17/21 10:00 Lactinex Chew Tab PO QDAY [facility] Losartan Potassium 100 mg 01/17/21 10:00 Losartan 50 Mg Tab PO QDAY [facility] Magnesium Hydroxide 30 ml 01/16/21 14:00 Magnesium Hydroxide (Mom) Oral Liqd Udc PO Q4H PRN Constipation Metformin HCl 500 mg 01/17/21 08:00 01/17/21 09:27 Metformin 500 Mg Tab PO 500 mg QDDIAB GIAN Administration Multivitamins 1 each 01/17/21 10:00 Multivitamins ,Therapeutic Tab PO DAILY [facility] Ondansetron HCl 4 mg 01/16/21 15:00 Ondansetron 4 Mg/2 Ml Inj IV Q8H PRN Nausea And Vomiting Oxycodone/Acetaminophen 1 tab 01/16/21 14:00 01/16/21 17:07 Oxycodone /Acetaminophen 5-325mg Tab PO 1 tab Q6H PRN Administration Pain, Moderate (4-6) Pantoprazole Sodium 40 mg 01/17/21 10:00 Pantoprazole 40 Mg Tab PO DAILY GIAN Sodium Chloride 10 ml 01/16/21 14:00 Sodium Chloride 0.9% 10 Ml Flush Syringe IV 01/27/21 13:59 PRN NR Sodium Chloride 10 ml 01/16/21 22:00 01/16/21 22:24 Sodium Chloride 0.9% 10 Ml Flush Syringe IV 10 ml BID GIAN Administration Sodium Chloride 10 ml 01/16/21 14:00 Sodium Chloride 0.9% 10 Ml Flush Syringe IV PRN PRN LINE FLUSH Tamsulosin HCl 0.4 mg 01/17/21 10:00 Tamsulosin 0.4 Mg Cap PO QDAY GIAN
[2021-01-17] MEDS ORDERED: LANSOPRAZOLE 30 MG PO SCH (10:00)
[2021-01-17] MEDS ORDERED: NON-FORMULARY EACH (Cetirizine Hcl [Zyrtec 10mg Cap] 10 MG Capsule) PO SCH (10:00)
[2021-01-17] MEDS ORDERED: IRON FUM PS PO SCH (10:00)
[2021-01-17] MEDS ORDERED: [UNRECOGNIZED DRUG - OTHER] PO SCH (10:00)
[2021-01-17] MEDS ORDERED: NON-FORMULARY EACH (Losartan/Hydrochlorothiazide [Losartan-Hctz 100-25 Mg Tab] 1 EACH Tabl PO SCH (10:00)
[2021-01-17] MEDS ORDERED: [UNRECOGNIZED DRUG - OTHER] PO SCH (10:00)
[2021-01-17] MEDS ORDERED: FOLIC PO SCH (10:00)
[2021-01-17] MEDS: oxyCODONE /ACETAMINOPHEN 5-325MG TAB PO PRN ×2 (10:35→18:04)
[2021-01-17] MEDS: PANTOPRAZOLE 40 MG TAB PO SCH (10:36)
[2021-01-17] MEDS: CETIRIZINE 10 MG TAB PO SCH (10:36)
[2021-01-17] MEDS: MULTIVITAMINS ,THERAPEUTIC TAB PO SCH (10:36)
[2021-01-17] MEDS: hydroCHLOROthiazide 25 MG TAB PO SCH (10:36)
[2021-01-17] MEDS: amLODIPine 5 MG TAB PO SCH (10:36)
[2021-01-17] MEDS: LACTINEX CHEW TAB PO SCH (10:45)
[2021-01-17] MEDS: DOCUSATE SODIUM 100 MG CAP PO SCH ×2 (10:48→21:12)
[2021-01-17] MEDS: LOSARTAN 50 MG TAB PO SCH (10:48)
[2021-01-17] MEDS: TAMSULOSIN 0.4 MG CAP PO SCH (10:49)
[2021-01-17] MEDS: APIXABAN 2.5 MG TAB PO SCH ×2 (10:49→21:12)
--- NOTE | 2021-01-17 11:01 | Progress Note ---
Subjective Date of service: 01/17/21 Interval history: spoke to the patient , POD1, doing well, She is with therapist Dressing dry pain under control Calf soft Ankle movement and sensations present. Knee brace for couple of days to rest the knee, followed by ROM exercises. WBAT with walker at all times Noticed Ancef dose was not given. Nurse informed about it to give it now. Patient aware to followup with . Objective Vital signs: Vital Signs - 12hr 01/16/21 01/17/21 01/17/21 23:58 00:16 03:51 Temperature 98.7 F 97.1 F L Pulse Rate 85 73 Respiratory 18 20 18 Rate Blood Pressure 107/62 106/66 O2 Sat by Pulse 97 95 Oximetry 01/17/21 08:05 Temperature 98.8 F Pulse Rate 84 Respiratory 18 Rate Blood Pressure 107/62 O2 Sat by Pulse 98 Oximetry - Labs CBC & BMP: 01/17/21 04:47 01/17/21 04:47 Labs: Abnormal lab results 01/16/21 01/16/21 01/16/21 Range/Units 13:51 15:23 15:23 RBC 3.41 L (3.65-5.03) M/mm3 Hgb 9.6 L (10.1-14.3) gm/dl Hct 30.0 L (30.3-42.9) % RDW 16.2 H (13.2-15.2) % BUN (7-17) mg/dL Creatinine 1.3 H (0.6-1.2) mg/dL Glucose (65-100) mg/dL POC Glucose 144 H (70-105) mg/dL Calcium (8.4-10.2) mg/dL 01/17/21 01/17/21 Range/Units 04:47 04:47 RBC (3.65-5.03) M/mm3 Hgb 8.6 L (10.1-14.3) gm/dl Hct 26.8 L (30.3-42.9) % RDW (13.2-15.2) % BUN 19 H (7-17) mg/dL Creatinine 1.3 H (0.6-1.2) mg/dL Glucose 143 H (65-100) mg/dL POC Glucose (70-105) mg/dL Calcium 7.9 L (8.4-10.2) mg/dL
--- NOTE | 2021-01-17 11:07 | Progress Note ---
Subjective Date of service: 01/17/21 Interval history: i was told that pharmacy put the [revious ancef order on hold. New order verbal order given to dose as per pharmacy ancef BID 12 hrlly Objective Vital signs: Vital Signs - 12hr 01/16/21 01/17/21 01/17/21 23:58 00:16 03:51 Temperature 98.7 F 97.1 F L Pulse Rate 85 73 Respiratory 18 20 18 Rate Blood Pressure 107/62 106/66 O2 Sat by Pulse 97 95 Oximetry 01/17/21 08:05 Temperature 98.8 F Pulse Rate 84 Respiratory 18 Rate Blood Pressure 107/62 O2 Sat by Pulse 98 Oximetry - Labs CBC & BMP: 01/17/21 04:47 01/17/21 04:47 Labs: Abnormal lab results 01/16/21 01/16/21 01/16/21 Range/Units 13:51 15:23 15:23 RBC 3.41 L (3.65-5.03) M/mm3 Hgb 9.6 L (10.1-14.3) gm/dl Hct 30.0 L (30.3-42.9) % RDW 16.2 H (13.2-15.2) % BUN (7-17) mg/dL Creatinine 1.3 H (0.6-1.2) mg/dL Glucose (65-100) mg/dL POC Glucose 144 H (70-105) mg/dL Calcium (8.4-10.2) mg/dL 01/17/21 01/17/21 Range/Units 04:47 04:47 RBC (3.65-5.03) M/mm3 Hgb 8.6 L (10.1-14.3) gm/dl Hct 26.8 L (30.3-42.9) % RDW (13.2-15.2) % BUN 19 H (7-17) mg/dL Creatinine 1.3 H (0.6-1.2) mg/dL Glucose 143 H (65-100) mg/dL POC Glucose (70-105) mg/dL Calcium 7.9 L (8.4-10.2) mg/dL
[2021-01-17 14:53] LABS: Bilirubin,Urine NEG (Negative); Blood,Urine SM (Negative); Color,Urine Colorless (Yellow); Protein,Urine <15 mg/dL mg/dL (Negative); Urobilinogen,Urine < 2.0 mg/dL (<2.0); WBC,Urine < 1.0 /HPF (0.0-6.0)
[2021-01-18] MEDS: HYDROcodone/ACETAMINOPHEN 7.5-325MG TAB PO PRN ×3 (00:56→21:06)
[2021-01-18] MEDS: BENZOCAINE/MENTHOL LOZENGE MM PRN (00:58)
[2021-01-18] MEDS: GABAPENTIN 300 MG CAP PO SCH ×3 (05:02→21:07)
[2021-01-18 05:20] LABS: Hematocrit 27.6 % (30.3-42.9); Hemoglobin 8.9 gm/dl (10.1-14.3); Mean Corpuscular HGB Conc 32 % (30-34); Mean Corpuscular Volume 87 fl (79-97); Platelet Count 187 K/mm3 (140-440); Red Blood Count 3.16 M/mm3 (3.65-5.03); Red Cell Distribution Width 15.7 % (13.2-15.2)
[2021-01-18] MEDS: ACETAMINOPHEN 325 MG TAB PO PRN ×2 (08:19→17:44)
[2021-01-18] MEDS: TAMSULOSIN 0.4 MG CAP PO SCH (09:19)
[2021-01-18] MEDS: APIXABAN 2.5 MG TAB PO SCH ×2 (09:19→21:07)
[2021-01-18] MEDS: metFORMIN 500 MG TAB PO SCH (09:19)
[2021-01-18] MEDS: LACTINEX CHEW TAB PO SCH (09:19)
[2021-01-18] MEDS: CETIRIZINE 10 MG TAB PO SCH (09:19)
[2021-01-18] MEDS: DOCUSATE SODIUM 100 MG CAP PO SCH ×2 (09:19→21:07)
[2021-01-18] MEDS: hydroCHLOROthiazide 25 MG TAB PO SCH (09:19)
[2021-01-18] MEDS: amLODIPine 5 MG TAB PO SCH (09:20)
[2021-01-18] MEDS: MULTIVITAMINS ,THERAPEUTIC TAB PO SCH (09:20)
[2021-01-18] MEDS: LOSARTAN 50 MG TAB PO SCH (09:21)
[2021-01-18] MEDS: PANTOPRAZOLE 40 MG TAB PO SCH (09:21)
--- NOTE | 2021-01-18 10:43 | Progress Note ---
Assessment and Plan Assessment and plan: (1) Hypertension Current Visit: Yes Status: Acute Qualifiers: Hypertension type: primary hypertension Qualified Code(s): I10 - Essential (primary) hypertension Plan to address problem: Monitor blood pressure every shift, continue medical management. (2) GERD (gastroesophageal reflux disease) Current Visit: Yes Status: Acute Qualifiers: Esophagitis presence: without esophagitis Qualified Code(s): K21.9 - Gastro-esophageal reflux disease without esophagitis Plan to address problem: PPI therapy, supportive care, (3) Obesity hypoventilation syndrome Current Visit: Yes Status: Acute Plan to address problem: Balanced diet, increase physical activity discharge, outpatient pulmonary follow-up for sleep study. (4) Osteoarthritis Current Visit: Yes Status: Acute Plan to address problem: s/p left knee arthroplasty on 01/16/21. (5) History of DVT (deep vein thrombosis) Current Visit: Yes Status: Acute Plan to address problem: Continue therapeutic anticoagulation. (6) DVT prophylaxis Current Visit: Yes Status: Acute Plan to address problem: SCD bilateral lower extremities while in bed, continue therapeutic anticoagulation (7) Advance care planning Current Visit: Yes Status: Acute Plan to address problem: Disease education conducted, care plan discussed, diagnoses discussed, patient is full code, care plan discussed. Patient knowledges understanding agree with care plan. 01/17/21 Patient s/p left knee arthroplasty yesterday. She is doing well. Minimal pain left knee. PT to see. 01/18/21 Patient with osteoarthritis s/p left knee arthroplasty on 01/16/[address] patrick. She has been having fevers since yesterday highest 100.8. UA was negative yesterday. Blood cultures x2 ordered. Will also obtain Chest x ray. History Interval history: Patient had left knee arthroplasty on 01/16/21 Mild pain surgical site Fever several times, highest 100.8 Hospitalist Physical - Physical exam Narrative exam: en: Not in acute distress, obese, lying in bed HEENT: Normocephalic, atraumatic Neck: supple, no JVD Lungs: Clear to auscultation, no rales, no wheeze Heart:S1 and S2 reg, no murmurs, rubs or gallop Abd: soft, non-tender,non-distended, normal bowel sounds Ext: Left knee covered with dressing , knee brace Neuro:Awake,alert,oriented x 3, no focal neurological signs - Constitutional Vitals: Temp Pulse Resp BP Pulse Ox 100.4 F H 87 18 126/73 94 01/18/21 07:52 01/18/21 09:20 01/18/21 08:19 01/18/21 09:21 01/18/21 07:52 General appearance: Present: obese Results - Labs CBC & Chem 7: 01/18/21 04:36 01/17/21 04:47 Labs: Laboratory Last Values WBC 6.4 K/mm3 (4.5-11.0) 01/18/21 04:36 RBC 3.16 M/mm3 (3.65-5.03) L 01/18/21 04:36 Hgb 8.9 gm/dl (10.1-14.3) L 01/18/21 04:36 Hct 27.6 % (30.3-42.9) L 01/18/21 04:36 MCV 87 fl (79-97) 01/18/21 04:36 MCH 28 pg (28-32) 01/18/21 04:36 MCHC 32 % (30-34) 01/18/21 04:36 RDW 15.7 % (13.2-15.2) H 01/18/21 04:36 Plt Count 187 K/mm3 (140-440) 01/18/21 04:36 PT 13.2 Sec. (12.2-14.9) 01/16/21 15:23 INR 0.90 (0.87-1.13) 01/16/21 15:23 APTT 25.4 Sec. (24.2-36.6) 01/16/21 15:23 Sodium 137 mmol/L (137-145) 01/17/21 04:47 Potassium 4.4 mmol/L (3.6-5.0) 01/17/21 04:47 Chloride 101.1 mmol/L (98-107) 01/17/21 04:47 Carbon Dioxide 22 mmol/L (22-30) 01/17/21 04:47 Anion Gap 18 mmol/L 01/17/21 04:47 BUN 19 mg/dL (7-17) H 01/17/21 04:47 Creatinine 1.3 mg/dL (0.6-1.2) H 01/17/21 04:47 Estimated GFR 51 ml/min 01/17/21 04:47 BUN/Creatinine Ratio 15 % 01/17/21 04:47 Glucose 143 mg/dL (65-100) H 01/17/21 04:47 POC Glucose 144 mg/dL (70-105) H 01/16/21 13:51 Calcium 7.9 mg/dL (8.4-10.2) L 01/17/21 04:47 Urine Color Colorless (Yellow) 01/17/21 Unknown Urine Turbidity Clear (Clear) 01/17/21 Unknown Urine pH 5.0 (5.0-7.0) 01/17/21 Unknown Ur Specific [place] 1.004 (1.003-1.030) 01/17/21 Unknown Urine Protein <15 mg/dl mg/dL (Negative) 01/17/21 Unknown Urine Glucose (UA) Neg mg/dL (Negative) 01/17/21 Unknown Urine Ketones Neg mg/dL (Negative) 01/17/21 Unknown Urine Blood Sm (Negative) 01/17/21 Unknown Urine Nitrite Neg (Negative) 01/17/21 Unknown Urine Bilirubin Neg (Negative) 01/17/21 Unknown Urine Urobilinogen < 2.0 mg/dL (<2.0) 01/17/21 Unknown Ur Leukocyte Esterase Neg (Negative) 01/17/21 Unknown Urine WBC (Auto) < 1.0 /HPF (0.0-6.0) 01/17/21 Unknown Urine RBC (Auto) 1.0 /HPF (0.0-6.0) 01/17/21 Unknown Fluid Type Synovial 01/16/21 Unknown Fluid Color Colorless 01/16/21 Unknown Fluid Appearance Clear 01/16/21 Unknown Fluid WBC [id number] /mm3 01/16/21 Unknown Fluid RBC [id number] /mm3 01/16/21 Unknown Fluid Seg Neutrophils 0 % 01/16/21 Unknown Fluid Lymphocytes 48.0 % 01/16/21 Unknown Fluid Reactive Lymphs 0 % 01/16/21 Unknown Fluid Monocytes 52.0 % 01/16/21 Unknown Fluid Eosinophils 0 % 01/16/21 Unknown Fluid Basophils 0 % 01/16/21 Unknown Coronavirus (PCR) Negative (Negative) 01/09/21 08:40 Blood Type A POSITIVE 01/16/21 06:40 Antibody Screen Negative 01/16/21 06:40 Crossmatch See Detail 01/16/21 06:40 Microbiology: Microbiology 01/18/21 09:02 Peripheral/Venous Blood Culture - Preliminary Culture in Progress 01/18/21 09:02 Peripheral/Venous Blood Culture - Preliminary Culture in Progress 01/16/21 14:00 Knee - Left Surgical Biopsy Culture - Preliminary 01/16/21 14:00 Synovial Fluid - Left Knee Surgical Culture - Preliminary 01/16/21 14:00 Knee - Left Surgical Culture - Preliminary 01/16/21 14:00 Knee - Left Surgical Culture - Preliminary Collier/IV: Voiding Method Bedside Commode Active Medications - Current Medications Current Medications: Generic Name Dose Route Start Last Admin Trade Name Freq PRN Reason Stop Dose Admin Acetaminophen 650 mg 01/16/21 14:00 01/18/21 08:19 Acetaminophen 325 Mg Tab PO 650 mg Q4H PRN Administration Pain MILD(1-3)/Fever >100.5/DELACRUZ Hydrocodone Bitart/Acetaminophen 1 each 01/16/21 14:00 01/18/21 06:39 Hydrocodone/Acetaminophen 7.5-325mg Tab PO 1 each Q4H PRN Administration Pain, Moderate (4-6) Albuterol 2.5 mg 01/16/21 16:00 Albuterol 2.5 Mg/3 Ml Nebu IH Q4HRT PRN Shortness Of Breath Amlodipine Besylate 5 mg 01/17/21 10:00 01/18/21 09:20 Amlodipine 5 Mg Tab PO 5 mg DAILY GIAN Administration Apixaban 2.5 mg 01/16/21 22:00 01/18/21 09:19 Apixaban 2.5 Mg Tab PO 2.5 mg Q12HR GIAN Administration Protocol Benzocaine/Menthol 1 each 01/16/21 21:06 01/18/21 00:58 Benzocaine/Menthol Lozenge MM 1 each Q2HR PRN Administration Sore Throat Cetirizine HCl 10 mg 01/17/21 10:00 01/18/21 09:19 Cetirizine 10 Mg Tab PO 10 mg DAILY GIAN Administration Cyclobenzaprine HCl 10 mg 01/16/21 22:00 01/16/21 20:42 Cyclobenzaprine 10 Mg Tab PO 10 mg QHS PRN Administration Muscle Spasm Docusate Sodium 100 mg 01/16/21 22:00 01/18/21 09:19 Docusate Sodium 100 Mg Cap PO 100 mg BID GIAN Administration Fluticasone Propionate 50 mcg 01/16/21 13:21 01/16/21 22:10 Fluticasone Propionate Nasal [place] 16 Gm NS 50 mcg PRN PRN Administration Allergy Symptoms Gabapentin 300 mg 01/16/21 14:00 01/18/21 05:02 Gabapentin 300 Mg Cap PO 300 mg Q8HR GIAN Administration Hydrochlorothiazide 25 mg 01/17/21 10:00 01/18/21 09:19 Hydrochlorothiazide 25 Mg Tab PO 25 mg QDAY GIAN Administration Hydromorphone HCl 0.5 mg 01/16/21 14:00 01/17/21 12:52 Hydromorphone 1 Mg/1 Ml Inj IV 0.5 mg Q3H PRN Administration Pain , Severe (7-10) Lactobacillus Acidophilus 1 each 01/17/21 10:00 01/18/21 09:19 Lactinex Chew Tab PO 1 each QDAY GIAN Administration Losartan Potassium 100 mg 01/17/21 10:00 01/18/21 09:21 Losartan 50 Mg Tab PO 100 mg QDAY GIAN Administration Magnesium Hydroxide 30 ml 01/16/21 14:00 Magnesium Hydroxide (Mom) Oral Liqd Udc PO Q4H PRN Constipation Metformin HCl 500 mg 01/17/21 08:00 01/18/21 09:19 Metformin 500 Mg Tab PO 500 mg QDDIAB GIAN Administration Multivitamins 1 each 01/17/21 10:00 01/18/21 09:20 Multivitamins ,Therapeutic Tab PO 1 each DAILY GIAN Administration Ondansetron HCl 4 mg 01/16/21 15:00 Ondansetron 4 Mg/2 Ml Inj IV Q8H PRN Nausea And Vomiting Oxycodone/Acetaminophen 1 tab 01/16/21 14:00 01/17/21 18:04 Oxycodone /Acetaminophen 5-325mg Tab PO 1 tab Q6H PRN Administration Pain, Moderate (4-6) Pantoprazole Sodium 40 mg 01/17/21 10:00 01/18/21 09:21 Pantoprazole 40 Mg Tab PO 40 mg DAILY GIAN Administration Sodium Chloride 10 ml 01/16/21 14:00 01/18/21 09:21 Sodium Chloride 0.9% 10 Ml Flush Syringe IV 01/27/21 13:59 10 ml PRN NR Administration Sodium Chloride 10 ml 01/16/21 22:00 01/18/21 09:47 Sodium Chloride 0.9% 10 Ml Flush Syringe IV 10 ml BID GIAN Administration Sodium Chloride 10 ml 01/16/21 14:00 Sodium Chloride 0.9% 10 Ml Flush Syringe IV PRN PRN LINE FLUSH Tamsulosin HCl 0.4 mg 01/17/21 10:00 01/18/21 09:19 Tamsulosin 0.4 Mg Cap PO 0.4 mg QDAY GIAN Administration
--- NOTE | 2021-01-18 11:45 | XRay Report ---
CHEST 1 VIEW INDICATION / CLINICAL INFORMATION: Fever. COMPARISON: None available. FINDINGS: SUPPORT DEVICES: None. HEART / MEDIASTINUM: No significant abnormality. LUNGS / PLEURA: No significant pulmonary or pleural abnormality. No pneumothorax. ADDITIONAL FINDINGS: No significant additional findings. IMPRESSION: 1. No acute findings. Signer Name: Aubrey Arvizu MD Signed: 01/18/2021 11:40 AM Workstation Name: [id number]
--- NOTE | 2021-01-18 15:18 | Vascular Lab Report ---
DUPLEX DOPPLER LOWER EXTREMITY VEINS, BILATERAL INDICATION / CLINICAL INFORMATION: Lower extremity pain and swelling.,recent surgery. TECHNIQUE: Duplex doppler imaging was performed through the veins of both lower extremities using venous bren lindsay and other maneuvers. COMPARISON: None available. FINDINGS: Right Common Femoral vein: Negative. Right Femoral vein: Negative. Right Popliteal vein: Negative. Right Calf veins: Negative. Left Common Femoral vein: Negative. Left Femoral vein: Negative. Left Popliteal vein: Negative. Left Calf veins: Negative. Additional findings: Mild subcutaneous edema both lower extremity.. IMPRESSION: 1. No sonographic evidence for DVT in either lower extremity. Signer Name: Angel Nassar MD Signed: 01/18/2021 3:13 PM Workstation Name: [id number] [id number]
[2021-01-18] MEDS: oxyCODONE /ACETAMINOPHEN 5-325MG TAB PO PRN (15:20)
--- NOTE | 2021-01-18 20:36 | Progress Note ---
Subjective Date of service: 01/18/21 Interval history: POD2, patient seen. mild discomfort in knee only. Pain under control left knee. Had low grade temp. spoke to hospitalist this AM. CXR and UA wnl. Urine cx pending. Knee inspected. No swelling in legs and ankle. No signs of DVT Knee dressing dry No redness. No clinical signs of infection in knee . CX so far No growth in 48 hrs. patient able to do SLR as well. Nurse informed me to encourage her to get out of bed more, i emphasized this to the patient Low grade temp, under evaluation and treatment under hospitalist. Objective Vital signs: Vital Signs - 12hr 01/18/21 01/18/21 01/18/21 09:20 09:21 11:54 Temperature 99.4 F Pulse Rate 87 89 Respiratory 20 Rate Blood Pressure 126/73 126/73 118/70 O2 Sat by Pulse 97 Oximetry 01/18/21 01/18/21 01/18/21 12:26 16:25 19:25 Temperature 100.8 F H 100.2 F H Pulse Rate 103 H 97 H Respiratory 18 20 16 Rate Blood Pressure 120/79 126/69 O2 Sat by Pulse 96 98 94 Oximetry - Labs CBC & BMP: 01/18/21 04:36 01/17/21 04:47 Labs: Abnormal lab results 01/18/21 Range/Units 04:36 RBC 3.16 L (3.65-5.03) M/mm3 Hgb 8.9 L (10.1-14.3) gm/dl Hct 27.6 L (30.3-42.9) % RDW 15.7 H (13.2-15.2) %
--- NOTE | 2021-01-18 20:37 | Progress Note ---
Subjective Date of service: 01/18/21 Interval history: dc plan once clear by medicine. DC with [facility] , Home pT and nurse visits once clear DC with PO Eliquis 2.5 mg BID Objective Vital signs: Vital Signs - 12hr 01/18/21 01/18/21 01/18/21 09:20 09:21 11:54 Temperature 99.4 F Pulse Rate 87 89 Respiratory 20 Rate Blood Pressure 126/73 126/73 118/70 O2 Sat by Pulse 97 Oximetry 01/18/21 01/18/21 01/18/21 12:26 16:25 19:25 Temperature 100.8 F H 100.2 F H Pulse Rate 103 H 97 H Respiratory 18 20 16 Rate Blood Pressure 120/79 126/69 O2 Sat by Pulse 96 98 94 Oximetry - Labs CBC & BMP: 01/18/21 04:36 01/17/21 04:47 Labs: Abnormal lab results 01/18/21 Range/Units 04:36 RBC 3.16 L (3.65-5.03) M/mm3 Hgb 8.9 L (10.1-14.3) gm/dl Hct 27.6 L (30.3-42.9) % RDW 15.7 H (13.2-15.2) %
[2021-01-18] MEDS: CYCLOBENZAPRINE 10 MG TAB PO PRN (21:07)
[2021-01-19] MEDS: HYDROcodone/ACETAMINOPHEN 7.5-325MG TAB PO PRN (04:04)
[2021-01-19] MEDS: GABAPENTIN 300 MG CAP PO SCH ×3 (05:09→22:01)
[2021-01-19 06:19] LABS: Hematocrit 26.9 % (30.3-42.9); Hemoglobin 8.7 gm/dl (10.1-14.3); Mean Corpuscular HGB Conc 32 % (30-34); Mean Corpuscular Volume 88 fl (79-97); Platelet Count 187 K/mm3 (140-440); Red Blood Count 3.06 M/mm3 (3.65-5.03); Red Cell Distribution Width 15.9 % (13.2-15.2)
[2021-01-19 06:43] LABS: Calcium 8.4 mg/dL (8.4-10.2)
[2021-01-19] MEDS: LACTINEX CHEW TAB PO SCH (09:13)
[2021-01-19] MEDS: DOCUSATE SODIUM 100 MG CAP PO SCH ×2 (09:13→22:00)
[2021-01-19] MEDS: MULTIVITAMINS ,THERAPEUTIC TAB PO SCH (09:14)
[2021-01-19] MEDS: CETIRIZINE 10 MG TAB PO SCH (09:14)
[2021-01-19] MEDS: PANTOPRAZOLE 40 MG TAB PO SCH (09:14)
[2021-01-19] MEDS: TAMSULOSIN 0.4 MG CAP PO SCH (09:14)
[2021-01-19] MEDS: APIXABAN 2.5 MG TAB PO SCH ×2 (09:14→22:00)
[2021-01-19] MEDS: metFORMIN 500 MG TAB PO SCH (09:18)
--- NOTE | 2021-01-19 10:54 | Progress Note ---
Assessment and Plan Assessment and plan: (1) Hypertension Current Visit: Yes Status: Acute Qualifiers: Hypertension type: primary hypertension Qualified Code(s): I10 - Essential (primary) hypertension Plan to address problem: Monitor blood pressure every shift, continue medical management. (2) GERD (gastroesophageal reflux disease) Current Visit: Yes Status: Acute Qualifiers: Esophagitis presence: without esophagitis Qualified Code(s): K21.9 - Gastro-esophageal reflux disease without esophagitis Plan to address problem: PPI therapy, supportive care, (3) Obesity hypoventilation syndrome Current Visit: Yes Status: Acute Plan to address problem: Balanced diet, increase physical activity discharge, outpatient pulmonary follow-up for sleep study. (4) Osteoarthritis Current Visit: Yes Status: Acute Plan to address problem: s/p left knee arthroplasty on 01/16/21. (5) History of DVT (deep vein thrombosis) Current Visit: Yes Status: Acute Plan to address problem: Continue therapeutic anticoagulation. (6) DVT prophylaxis Current Visit: Yes Status: Acute Plan to address problem: SCD bilateral lower extremities while in bed, continue therapeutic anticoagulation CKD Pt has history of CKD Fever (7) Advance care planning Current Visit: Yes Status: Acute Plan to address problem: Disease education conducted, care plan discussed, diagnoses discussed, patient is full code, care plan discussed. Patient knowledges understanding agree with care plan. 01/17/21 Patient s/p left knee arthroplasty yesterday. She is doing well. Minimal pain left knee. PT to see. 01/18/21 Patient with osteoarthritis s/p left knee arthroplasty on 01/16/[address] patrick. She has been having fevers since yesterday highest 100.8. UA was negative yesterday. Blood cultures x2 ordered. Will also obtain Chest x ray. 01/19/21 Patient had left knee arthroplasty on 01/16/21 for osteoarthritis. now having persistent fevers. T max 100.8. WBC normal. Urinalysis neg, CXR neg, Doppler US legs neg. Blood cultures ordered:no growth after 24 hrs. Urine cultures ordered. No source of infection seen. Will consult ID for further evaluation. History Interval history: Patient had left knee arthroplasty on 01/16/21 Mild pain surgical site Fever persistent Hospitalist Physical - Physical exam Narrative exam: en: Not in acute distress, obese, lying in bed HEENT: Normocephalic, atraumatic Neck: supple, no JVD Lungs: Clear to auscultation, no rales, no wheeze Heart:S1 and S2 reg, no murmurs, rubs or gallop Abd: soft, non-tender,non-distended, normal bowel sounds Ext: Left knee covered with dressing , knee brace Neuro:Awake,alert,oriented x 3, no focal neurological signs - Constitutional Vitals: Temp Pulse Resp BP Pulse Ox 99.1 F 83 18 97/63 97 01/19/21 08:20 01/19/21 08:20 01/19/21 08:20 01/19/21 08:20 01/19/21 08:20 General appearance: Present: obese Results - Labs CBC & Chem 7: 01/19/21 04:56 01/19/21 04:56 Labs: Laboratory Last Values WBC 5.6 K/mm3 (4.5-11.0) 01/19/21 04:56 RBC 3.06 M/mm3 (3.65-5.03) L 01/19/21 04:56 Hgb 8.7 gm/dl (10.1-14.3) L 01/19/21 04:56 Hct 26.9 % (30.3-42.9) L 01/19/21 04:56 MCV 88 fl (79-97) 01/19/21 04:56 MCH 28 pg (28-32) 01/19/21 04:56 MCHC 32 % (30-34) 01/19/21 04:56 RDW 15.9 % (13.2-15.2) H 01/19/21 04:56 Plt Count 187 K/mm3 (140-440) 01/19/21 04:56 PT 13.2 Sec. (12.2-14.9) 01/16/21 15:23 INR 0.90 (0.87-1.13) 01/16/21 15:23 APTT 25.4 Sec. (24.2-36.6) 01/16/21 15:23 Sodium 138 mmol/L (137-145) 01/19/21 04:56 Potassium 3.9 mmol/L (3.6-5.0) 01/19/21 04:56 Chloride 102.3 mmol/L (98-107) 01/19/21 04:56 Carbon Dioxide 24 mmol/L (22-30) 01/19/21 04:56 Anion Gap 16 mmol/L 01/19/21 04:56 BUN 17 mg/dL (7-17) 01/19/21 04:56 Creatinine 1.4 mg/dL (0.6-1.2) H 01/19/21 04:56 Estimated GFR 47 ml/min 01/19/21 04:56 BUN/Creatinine Ratio 12 % 01/19/21 04:56 Glucose 140 mg/dL (65-100) H 01/19/21 04:56 POC Glucose 144 mg/dL (70-105) H 01/16/21 13:51 Calcium 8.4 mg/dL (8.4-10.2) 01/19/21 04:56 Urine Color Colorless (Yellow) 01/17/21 Unknown Urine Turbidity Clear (Clear) 01/17/21 Unknown Urine pH 5.0 (5.0-7.0) 01/17/21 Unknown Ur Specific [place] 1.004 (1.003-1.030) 01/17/21 Unknown Urine Protein <15 mg/dl mg/dL (Negative) 01/17/21 Unknown Urine Glucose (UA) Neg mg/dL (Negative) 01/17/21 Unknown Urine Ketones Neg mg/dL (Negative) 01/17/21 Unknown Urine Blood Sm (Negative) 01/17/21 Unknown Urine Nitrite Neg (Negative) 01/17/21 Unknown Urine Bilirubin Neg (Negative) 01/17/21 Unknown Urine Urobilinogen < 2.0 mg/dL (<2.0) 01/17/21 Unknown Ur Leukocyte Esterase Neg (Negative) 01/17/21 Unknown Urine WBC (Auto) < 1.0 /HPF (0.0-6.0) 01/17/21 Unknown Urine RBC (Auto) 1.0 /HPF (0.0-6.0) 01/17/21 Unknown Fluid Type Synovial 01/16/21 Unknown Fluid Color Colorless 01/16/21 Unknown Fluid Appearance Clear 01/16/21 Unknown Fluid WBC 821474 /mm3 01/16/21 Unknown Fluid RBC [id number] /mm3 01/16/21 Unknown Fluid Seg Neutrophils 0 % 01/16/21 Unknown Fluid Lymphocytes 48.0 % 01/16/21 Unknown Fluid Reactive Lymphs 0 % 01/16/21 Unknown Fluid Monocytes 52.0 % 01/16/21 Unknown Fluid Eosinophils 0 % 01/16/21 Unknown Fluid Basophils 0 % 01/16/21 Unknown Coronavirus (PCR) Negative (Negative) 01/09/21 08:40 Blood Type A POSITIVE 01/16/21 06:40 Antibody Screen Negative 01/16/21 06:40 Crossmatch See Detail 01/16/21 06:40 Microbiology: Microbiology 01/18/21 09:02 Peripheral/Venous Blood Culture - Preliminary NO GROWTH AFTER 24 HOURS 01/18/21 09:02 Peripheral/Venous Blood Culture - Preliminary NO GROWTH AFTER 24 HOURS 01/16/21 14:00 Knee - Left Surgical Biopsy Culture - Preliminary 01/16/21 14:00 Knee - Left Surgical Culture - Preliminary 01/16/21 14:00 Knee - Left Surgical Culture - Preliminary 01/16/21 14:00 Synovial Fluid - Left Knee Surgical Culture - Preliminary Collier/IV: Voiding Method Toilet Active Medications - Current Medications Current Medications: Generic Name Dose Route Start Last Admin Trade Name Freq PRN Reason Stop Dose Admin Acetaminophen 650 mg 01/16/21 14:00 01/18/21 17:44 Acetaminophen 325 Mg Tab PO 650 mg Q4H PRN Administration Pain MILD(1-3)/Fever >100.5/DELACRUZ Hydrocodone Bitart/Acetaminophen 1 each 01/16/21 14:00 01/19/21 04:04 Hydrocodone/Acetaminophen 7.5-325mg Tab PO 1 each Q4H PRN Administration Pain, Moderate (4-6) Albuterol 2.5 mg 01/16/21 16:00 Albuterol 2.5 Mg/3 Ml Nebu IH Q4HRT PRN Shortness Of Breath Apixaban 2.5 mg 01/16/21 22:00 01/19/21 09:14 Apixaban 2.5 Mg Tab PO 2.5 mg Q12HR GIAN Administration Protocol Benzocaine/Menthol 1 each 01/16/21 21:06 01/18/21 00:58 Benzocaine/Menthol Lozenge MM 1 each Q2HR PRN Administration Sore Throat Cetirizine HCl 10 mg 01/17/21 10:00 01/19/21 09:14 Cetirizine 10 Mg Tab PO 10 mg DAILY GIAN Administration Cyclobenzaprine HCl 10 mg 01/16/21 22:00 01/18/21 21:07 Cyclobenzaprine 10 Mg Tab PO 10 mg QHS PRN Administration Muscle Spasm Docusate Sodium 100 mg 01/16/21 22:00 01/19/21 09:13 Docusate Sodium 100 Mg Cap PO 100 mg BID GIAN Administration Fluticasone Propionate 50 mcg 01/16/21 13:21 01/16/21 22:10 Fluticasone Propionate Nasal [place] 16 Gm NS 50 mcg PRN PRN Administration Allergy Symptoms Gabapentin 300 mg 01/16/21 14:00 01/19/21 05:09 Gabapentin 300 Mg Cap PO 300 mg Q8HR GIAN Administration Hydromorphone HCl 0.5 mg 01/16/21 14:00 01/17/21 12:52 Hydromorphone 1 Mg/1 Ml Inj IV 0.5 mg Q3H PRN Administration Pain , Severe (7-10) Lactobacillus Acidophilus 1 each 01/17/21 10:00 01/19/21 09:13 Lactinex Chew Tab PO 1 each QDAY GIAN Administration Magnesium Hydroxide 30 ml 01/16/21 14:00 Magnesium Hydroxide (Mom) Oral Liqd Udc PO Q4H PRN Constipation Metformin HCl 500 mg 01/17/21 08:00 01/19/21 09:18 Metformin 500 Mg Tab PO 500 mg QDDIAB GIAN Administration Multivitamins 1 each 01/17/21 10:00 01/19/21 09:14 Multivitamins ,Therapeutic Tab PO 1 each DAILY GIAN Administration Ondansetron HCl 4 mg 01/16/21 15:00 Ondansetron 4 Mg/2 Ml Inj IV Q8H PRN Nausea And Vomiting Oxycodone/Acetaminophen 1 tab 01/16/21 14:00 01/18/21 15:20 Oxycodone /Acetaminophen 5-325mg Tab PO 1 tab Q6H PRN Administration Pain, Moderate (4-6) Pantoprazole Sodium 40 mg 01/17/21 10:00 01/19/21 09:14 Pantoprazole 40 Mg Tab PO 40 mg DAILY GIAN Administration Sodium Chloride 10 ml 01/16/21 14:00 01/19/21 09:16 Sodium Chloride 0.9% 10 Ml Flush Syringe IV 01/27/21 13:59 10 ml PRN NR Administration Sodium Chloride 10 ml 01/16/21 22:00 01/19/21 09:16 Sodium Chloride 0.9% 10 Ml Flush Syringe IV 10 ml BID GIAN Administration Sodium Chloride 10 ml 01/16/21 14:00 Sodium Chloride 0.9% 10 Ml Flush Syringe IV PRN PRN LINE FLUSH Tamsulosin HCl 0.4 mg 01/17/21 10:00 01/19/21 09:14 Tamsulosin 0.4 Mg Cap PO 0.4 mg QDAY GIAN Administration
[2021-01-19] MEDS: oxyCODONE /ACETAMINOPHEN 5-325MG TAB PO PRN (11:47)
[2021-01-19] MEDS: ACETAMINOPHEN 325 MG TAB PO PRN ×2 (13:09→17:28)
--- NOTE | 2021-01-19 14:53 | Consultation ---
History of Present Illness - Reason for Consult Consult date: 01/19/21 fever - History of Present Illness 60-year-old female with history of hypertension, morbid obesity, type obesity hypoventilation syndrome, GERD, diabetes mellitus, osteoarthritis, previous left total knee replacement 5 years ago, admitted on 01/09/2021 for elective revision of the left knee. Patient underwent procedure on which include revision of the left knee arthroplasty, removal of the femoral and tibial components. By 01/17/2021 patient started spiking fever 100.8, temperature went up to 101 on 01/19/2021. WBC has remained stable. Creatinine was 1.38 went up to 1.4. Urinalysis negative. Synovial fluid 330,000 WBC 7 four 3 m RBCs. Urinalysis negative. Chest x-ray unremarkable. Multiple left knee synovial fluid cultures negative. Blood cultures 01/18/2021 no growth today. Review of Systems: positive in bold print General: fever, chills, malaise Cutaneous: rash, pruritus Head: headaches or injury Eyes: changes in vision, eye pain, double vision Ears: ear pain, ear discharge, ringing or hearing loss Nose: nose bleeding, stuffiness Mouth & throat: bleeding gums, horseness, no dental problems, or swollen glands Neck: no pain, node enlargement/lumps, tyroid enlargement or tenderness Respiratory: SOB, cough, [place], wheezing, sputum, hemoptysis, pleuritic chest pain Cardiovascular: chest pain, leg edema, cyanosis, [place], orthopnea Musculoskeletal: edema, deformities, pain Gastrointestinal: nausea, vomiting, hematemesis, diarrhea, constipation, melena, bright red blood in stools, fecal incontinence, jaundice Genitourinary/Reproductive: frequent urination, dysuria, hematuria, incontinence Neurogical: seizures, headaches, weakness, paresthesias, loss of speech or vision; memory loss, vertigo, tremors, numbness Psychiatric: stable mood; excessive anxiety, sadness or moodiness Past History Past Medical History: arthritis, diabetes, GERD, hypertension Past Surgical History: total knee replacement Social history: . denies: smoking, alcohol abuse Family history: diabetes, hypertension Medications and Allergies Allergies Allergy/AdvReac Type Severity Reaction Status Date / Time atorvastatin [From Lipitor] Allergy MUSCLE PAIN Verified 10/08/18 11:23 Iodinated Contrast Media Allergy Hives Verified 08/28/18 11:42 [Iodinated Contrast- Oral and IV Dye] lamivudine [From Combivir] Allergy MUSCLE Verified 10/08/18 11:23 WEAKNESS ramipril [From Altace] Allergy ORAL Verified 10/08/18 11:38 SWELLING sitagliptin [From Janumet] Allergy MUSCLE Verified 10/08/18 11:38 WEAKNESS zidovudine [From Combivir] Allergy MUSCLE Verified 10/08/18 11:38 WEAKNESS amoxicillin [From Augmentin] AdvReac GI UPSET , Verified 01/08/21 13:38 ABD PAIN clavulanic acid AdvReac GI UPSET Verified 10/08/18 11:38 [From Augmentin] ibuprofen AdvReac DECREASED Verified 10/08/18 11:39 RENAL FUNCTION [id number] Reductase AdvReac MUSCLE Verified 01/08/21 13:38 Inhibitor CRAMPS Home Medications Medication Instructions Recorded Confirmed Last Taken Type Cetirizine HCl [ZyrTEC 10mg cap] 10 mg PO DAILY 10/08/18 01/08/21 10/12/18 06:00 History Fluticasone [Flonase] 1 spray NS PRN PRN 10/08/18 01/08/21 10/17/18 06:00 History Iron Fum,Ps/Folic/Bcomp,C No.9 1 each PO DAILY 10/08/18 01/08/21 10/17/18 06:00 History [Folivane-Plus Capsule] L. Acidophilus/Pectin, [place] 1 each PO DAILY 10/08/18 01/08/21 10/16/18 06:00 History [Acidophilus Probiotic Capsule] Lansoprazole [Prevacid] 30 mg PO DAILY 10/08/18 01/08/21 10/18/18 06:00 History Losartan/Hydrochlorothiazide 1 each PO DAILY 10/08/18 01/08/21 10/18/18 06:00 History [Losartan-Hctz 100-25 mg Tab] Tamsulosin [Flomax] 0.4 mg PO QDAY 10/08/18 01/08/21 10/17/18 21:30 History Tizanidine HCl [Zanaflex 4mg CAP] 4 mg PO PRN PRN 10/08/18 01/08/21 10/16/18 21: 00 History amLODIPine 5 mg PO DAILY 10/08/18 01/08/21 Unknown History traMADoL [Ultram 50 MG tab] 50 mg PO Q4HR PRN #120 tablet 04/20/19 01/08/21 Unknown Rx Cyclobenzaprine [Flexeril] 10 mg PO QHS PRN #10 tablet 09/01/19 01/08/21 Unknown Rx metFORMIN [Glucophage] 500 mg PO QDAY 01/08/21 01/08/21 Unknown History Active Meds: Active Medications Acetaminophen (Acetaminophen 325 Mg Tab) 650 mg PO Q4H PRN PRN Reason: Pain MILD(1-3)/Fever >100.5/DELACRUZ Last Admin: 01/19/21 13:09 Dose: 650 mg Documented by: Hydrocodone Bitart/Acetaminophen (Hydrocodone/Acetaminophen 7.5-325mg Tab) 1 each PO Q4H PRN PRN Reason: Pain, Moderate (4-6) Last Admin: 01/19/21 04:04 Dose: 1 each Documented by: Albuterol (Albuterol 2.5 Mg/3 Ml Nebu) 2.5 mg IH Q4HRT PRN PRN Reason: Shortness Of Breath Apixaban (Apixaban 2.5 Mg Tab) 2.5 mg PO Q12HR GIAN; Protocol Last Admin: 01/19/21 09:14 Dose: 2.5 mg Documented by: Benzocaine/Menthol (Benzocaine/Menthol Lozenge) 1 each MM Q2HR PRN PRN Reason: Sore Throat Last Admin: 01/18/21 00:58 Dose: 1 each Documented by: Cetirizine HCl (Cetirizine 10 Mg Tab) 10 mg PO DAILY [facility] Last Admin: 01/19/21 09:14 Dose: 10 mg Documented by: Cyclobenzaprine HCl (Cyclobenzaprine 10 Mg Tab) 10 mg PO QHS PRN PRN Reason: Muscle Spasm Last Admin: 01/18/21 21:07 Dose: 10 mg Documented by: Docusate Sodium (Docusate Sodium 100 Mg Cap) 100 mg PO BID [facility] Last Admin: 01/19/21 09:13 Dose: 100 mg Documented by: Fluticasone Propionate (Fluticasone Propionate Nasal [place] 16 Gm) 50 mcg NS PRN PRN PRN Reason: Allergy Symptoms Last Admin: 01/16/21 22:10 Dose: 50 mcg Documented by: Gabapentin (Gabapentin 300 Mg Cap) 300 mg PO Q8HR [facility] Last Admin: 01/19/21 13:09 Dose: 300 mg Documented by: Lactobacillus Acidophilus (Lactinex Chew Tab) 1 each PO QDAY [facility] Last Admin: 01/19/21 09:13 Dose: 1 each Documented by: Magnesium Hydroxide (Magnesium Hydroxide (Mom) Oral Liqd Udc) 30 ml PO Q4H PRN PRN Reason: Constipation Metformin HCl (Metformin 500 Mg Tab) 500 mg PO QDDIAB [facility] Last Admin: 01/19/21 09:18 Dose: 500 mg Documented by: Multivitamins (Multivitamins ,Therapeutic Tab) 1 each PO DAILY [facility] Last Admin: 01/19/21 09:14 Dose: 1 each Documented by: Ondansetron HCl (Ondansetron 4 Mg/2 Ml Inj) 4 mg IV Q8H PRN PRN Reason: Nausea And Vomiting Oxycodone/Acetaminophen (Oxycodone /Acetaminophen 5-325mg Tab) 1 tab PO Q6H PRN PRN Reason: Pain, Moderate (4-6) Last Admin: 01/19/21 11:47 Dose: 1 tab Documented by: Pantoprazole Sodium (Pantoprazole 40 Mg Tab) 40 mg PO DAILY [facility] Last Admin: 01/19/21 09:14 Dose: 40 mg Documented by: Sodium Chloride (Sodium Chloride 0.9% 10 Ml Flush Syringe) 10 ml IV PRN NR Stop: 01/27/21 13:59 Last Admin: 01/19/21 09:16 Dose: 10 ml Documented by: Sodium Chloride (Sodium Chloride 0.9% 10 Ml Flush Syringe) 10 ml IV BID [facility] Last Admin: 01/19/21 09:16 Dose: 10 ml Documented by: Sodium Chloride (Sodium Chloride 0.9% 10 Ml Flush Syringe) 10 ml IV PRN PRN PRN Reason: LINE FLUSH Tamsulosin HCl (Tamsulosin 0.4 Mg Cap) 0.4 mg PO QDAY [facility] Last Admin: 01/19/21 09:14 Dose: 0.4 mg Documented by: Physical Examination - Physical Exam Narrative exam: General appearance: Alert in NAD pleasant Eyes: anicteric sclerae, moist conjunctivae; no lid-lag; PERRLA HENT: Normocephalic, Atraumatic; normal external ears, nares open, oropharynx clear with moist mucous membranes and no oral thrush; normal hard and soft palate. Neck: supple, tracheal midline, no JVD Lungs: CTA, with normal respiratory effort and no intercostal retractions CV: RRR no murmur Abdomen: Soft, non-tender; no masses or hepatosplenomegaly Extremities: Left knee surgical wound with dressings Skin: No rash. Psych: no agitated Neuro: alert and oriented x 3. Moving all extermities - Constitutional Vitals: Vital Signs Temp Pulse Resp BP Pulse Ox 101.2 F H 93 H 18 120/76 95 01/19/21 13:00 01/19/21 13:00 01/19/21 13:00 01/19/21 13:00 01/19/21 13:00 Temperature -Last 24 Hours Temperature 101.2 F Temperature 99.1 F Temperature 100.6 F Temperature 99.9 F Temperature 100.2 F Temperature 100.8 F Results - Labs CBC & Chem 7: 01/19/21 04:56 01/19/21 04:56 Labs: Abnormal lab results 01/16/21 01/19/21 01/19/21 Range/Units 06:40 04:56 04:56 RBC 3.06 L (3.65-5.03) M/mm3 Hgb 8.7 L (10.1-14.3) gm/dl Hct 26.9 L (30.3-42.9) % RDW 15.9 H (13.2-15.2) % Creatinine 1.4 H (0.6-1.2) mg/dL Glucose 140 H (65-100) mg/dL Crossmatch See Detail Assessment and Plan Cultures: Blood culture pending Assessment: 60-year-old female with history of hypertension, morbid obesity, type obesity hypoventilation syndrome, GERD, diabetes mellitus, osteoarthritis, previous left total knee replacement 5 years ago, admitted on 01/09/2021 for elective revision of the left knee undergone on 01/16/2021, now with a fever: #Fever: Of unclear etiology. So far urinalysis negative, chest x-ray negative, patient does have sinus congestion. ? Surgical site infection less likely. Other possibilities DVT. #Malfunctional left total knee replacement: Initially placed 5 years ago, underwent revision of the left knee arthroplasty, removal of the femoral and tibial components. Synovial fluid 330,000 WBC and millions RBCs. Urinalysis negative. Chest x-ray unremarkable. Multiple left knee synovial fluid cultures negative. Recommendations: Start Levaquin and vancomycin for now Check CRP and procalcitonin Monitor fever Will follow. Felipa Cooper MD Infectious Diseases Flipping Machine Operator [facility] M [phone] O [phone]
[2021-01-19] MEDS ORDERED: VANCOMYCIN PHARMACY TO DOSE IV SCH (17:00)
[2021-01-19] MEDS ORDERED: VANCOMYCIN 2,000 MG in SODIUM CHLORIDE 0.9% 500 ML 500 ML IV SCH (18:30)
[2021-01-20] MEDS: oxyCODONE /ACETAMINOPHEN 5-325MG TAB PO PRN ×2 (02:18→18:56)
[2021-01-20] MEDS: HYDROcodone/ACETAMINOPHEN 7.5-325MG TAB PO PRN ×3 (06:26→15:12)
[2021-01-20] MEDS: GABAPENTIN 300 MG CAP PO SCH ×3 (06:26→21:37)
[2021-01-20 08:14] LABS: Hematocrit 25.5 % (30.3-42.9); Hemoglobin 8.3 gm/dl (10.1-14.3); Mean Corpuscular HGB Conc 33 % (30-34); Mean Corpuscular Volume 88 fl (79-97); Platelet Count 191 K/mm3 (140-440); Red Cell Distribution Width 15.1 % (13.2-15.2)
[2021-01-20 08:33] LABS: Calcium 8.3 mg/dL (8.4-10.2)
--- NOTE | 2021-01-20 10:09 | Progress Note ---
Assessment and Plan Assessment and plan: (1) Hypertension Current Visit: Yes Status: Acute Qualifiers: Hypertension type: primary hypertension Qualified Code(s): I10 - Essential (primary) hypertension Plan to address problem: Monitor blood pressure every shift, continue medical management. (2) GERD (gastroesophageal reflux disease) Current Visit: Yes Status: Acute Qualifiers: Esophagitis presence: without esophagitis Qualified Code(s): K21.9 - Gastro-esophageal reflux disease without esophagitis Plan to address problem: PPI therapy, supportive care, (3) Obesity hypoventilation syndrome Current Visit: Yes Status: Acute Plan to address problem: Balanced diet, increase physical activity discharge, outpatient pulmonary follow-up for sleep study. (4) Osteoarthritis Current Visit: Yes Status: Acute Plan to address problem: s/p left knee arthroplasty on 01/16/21. (5) History of DVT (deep vein thrombosis) Current Visit: Yes Status: Acute Plan to address problem: Continue therapeutic anticoagulation. (6) DVT prophylaxis Current Visit: Yes Status: Acute Plan to address problem: SCD bilateral lower extremities while in bed, continue therapeutic anticoagulation CKD Pt has history of CKD Fever (7) Advance care planning Current Visit: Yes Status: Acute Plan to address problem: Disease education conducted, care plan discussed, diagnoses discussed, patient is full code, care plan discussed. Patient knowledges understanding agree with care plan. 01/17/21 Patient s/p left knee arthroplasty yesterday. She is doing well. Minimal pain left knee. PT to see. 01/18/21 Patient with osteoarthritis s/p left knee arthroplasty on 01/16/[address] patrick. She has been having fevers since yesterday highest 100.8. UA was negative yesterday. Blood cultures x2 ordered. Will also obtain Chest x ray. 01/19/21 Patient had left knee arthroplasty on 01/16/21 for osteoarthritis. now having persistent fevers. T max 100.8. WBC normal. Urinalysis neg, CXR neg, Doppler US legs neg. Blood cultures ordered:no growth after 24 hrs. Urine cultures ordered. No source of infection seen. Will consult ID for further evaluation. Discussed with Dr. Patrick, Orthopedic Surgeon. 01/20/21 Patient had left knee arthroplasty on 01/16/21 for osteoarthritis. She now has persistent fevers. T max 101.5. WBC normal. Urinalysis neg, CXR neg, Doppler US legs neg. Blood cultures ordered:no growth after 24 hrs. Urine cultures ordered. No obvious source of infection seen. Consulted ID and she was seen by Dr. Nixon. She ordered repeat Covid-testing, Procalcitonin neg. Discussed with ID Physician. History Interval history: Patient had left knee arthroplasty on 01/16/21 Mild pain surgical site Fever persistent Tmax 101.5 Hospitalist Physical - Physical exam Narrative exam: en: Not in acute distress, obese, lying in bed HEENT: Normocephalic, atraumatic Neck: supple, no JVD Lungs: Clear to auscultation, no rales, no wheeze Heart:S1 and S2 reg, no murmurs, rubs or gallop Abd: soft, non-tender,non-distended, normal bowel sounds Ext: Left knee covered with dressing , knee brace Neuro:Awake,alert,oriented x 3, no focal neurological signs - Constitutional Vitals: Temp Pulse Resp BP Pulse Ox 98.5 F 82 18 98/52 98 01/20/21 03:51 01/20/21 03:51 01/20/21 03:51 01/20/21 03:51 01/20/21 08:14 General appearance: Present: obese Results - Labs CBC & Chem 7: 01/20/21 05:00 01/20/21 05:00 Labs: Laboratory Last Values WBC 5.5 K/mm3 (4.5-11.0) 01/20/21 05:00 RBC 2.90 M/mm3 (3.65-5.03) L 01/20/21 05:00 Hgb 8.3 gm/dl (10.1-14.3) L 01/20/21 05:00 Hct 25.5 % (30.3-42.9) L 01/20/21 05:00 MCV 88 fl (79-97) 01/20/21 05:00 MCH 29 pg (28-32) 01/20/21 05:00 MCHC 33 % (30-34) 01/20/21 05:00 RDW 15.1 % (13.2-15.2) 01/20/21 05:00 Plt Count 191 K/mm3 (140-440) 01/20/21 05:00 PT 13.2 Sec. (12.2-14.9) 01/16/21 15:23 INR 0.90 (0.87-1.13) 01/16/21 15:23 APTT 25.4 Sec. (24.2-36.6) 01/16/21 15:23 D-Dimer 861.39 ng/mlDDU (0-234) H 01/19/21 19:03 Sodium 140 mmol/L (137-145) 01/20/21 05:00 Potassium 4.1 mmol/L (3.6-5.0) 01/20/21 05:00 Chloride 103.1 mmol/L (98-107) 01/20/21 05:00 Carbon Dioxide 24 mmol/L (22-30) 01/20/21 05:00 Anion Gap 17 mmol/L 01/20/21 05:00 BUN 18 mg/dL (7-17) H 01/20/21 05:00 Creatinine 1.5 mg/dL (0.6-1.2) H 01/20/21 05:00 Estimated GFR 43 ml/min 01/20/21 05:00 BUN/Creatinine Ratio 12 % 01/20/21 05:00 Glucose 114 mg/dL (65-100) H 01/20/21 05:00 POC Glucose 144 mg/dL (70-105) H 01/16/21 13:51 Calcium 8.3 mg/dL (8.4-10.2) L 01/20/21 05:00 Ferritin 246.4 ng/mL (10.0-200.0) H 01/19/21 19:03 C-Reactive Protein 23.00 mg/dL (0.00-1.30) H 01/19/21 16:42 Procalcitonin 0.06 ng/mL (<0.15) 01/19/21 16:42 Urine Color Colorless (Yellow) 01/17/21 Unknown Urine Turbidity Clear (Clear) 01/17/21 Unknown Urine pH 5.0 (5.0-7.0) 01/17/21 Unknown Ur Specific [place] 1.004 (1.003-1.030) 01/17/21 Unknown Urine Protein <15 mg/dl mg/dL (Negative) 01/17/21 Unknown Urine Glucose (UA) Neg mg/dL (Negative) 01/17/21 Unknown Urine Ketones Neg mg/dL (Negative) 01/17/21 Unknown Urine Blood Sm (Negative) 01/17/21 Unknown Urine Nitrite Neg (Negative) 01/17/21 Unknown Urine Bilirubin Neg (Negative) 01/17/21 Unknown Urine Urobilinogen < 2.0 mg/dL (<2.0) 01/17/21 Unknown Ur Leukocyte Esterase Neg (Negative) 01/17/21 Unknown Urine WBC (Auto) < 1.0 /HPF (0.0-6.0) 01/17/21 Unknown Urine RBC (Auto) 1.0 /HPF (0.0-6.0) 01/17/21 Unknown Fluid Type Synovial 01/16/21 Unknown Fluid Color Colorless 01/16/21 Unknown Fluid Appearance Clear 01/16/21 Unknown Fluid WBC 492797 /mm3 01/16/21 Unknown Fluid RBC [id number] /mm3 01/16/21 Unknown Fluid Seg Neutrophils 0 % 01/16/21 Unknown Fluid Lymphocytes 48.0 % 01/16/21 Unknown Fluid Reactive Lymphs 0 % 01/16/21 Unknown Fluid Monocytes 52.0 % 01/16/21 Unknown Fluid Eosinophils 0 % 01/16/21 Unknown Fluid Basophils 0 % 01/16/21 Unknown Coronavirus (PCR) Negative (Negative) 01/09/21 08:40 Blood Type A POSITIVE 01/16/21 06:40 Antibody Screen Negative 01/16/21 06:40 Crossmatch See Detail 01/16/21 06:40 Microbiology: Microbiology 01/18/21 09:02 Peripheral/Venous Blood Culture - Preliminary NO GROWTH AFTER 48 HOURS 01/18/21 09:02 Peripheral/Venous Blood Culture - Preliminary NO GROWTH AFTER 48 HOURS Collier/IV: Voiding Method Toilet Active Medications - Current Medications Current Medications: Generic Name Dose Route Start Last Admin Trade Name Freq PRN Reason Stop Dose Admin Acetaminophen 650 mg 01/16/21 14:00 01/19/21 17:28 Acetaminophen 325 Mg Tab PO 650 mg Q4H PRN Administration Pain MILD(1-3)/Fever >100.5/DELACRUZ Hydrocodone Bitart/Acetaminophen 1 each 01/16/21 14:00 01/20/21 06:26 Hydrocodone/Acetaminophen 7.5-325mg Tab PO 1 each Q4H PRN Administration Pain, Moderate (4-6) Albuterol 2.5 mg 01/16/21 16:00 Albuterol 2.5 Mg/3 Ml Nebu IH Q4HRT PRN Shortness Of Breath Apixaban 2.5 mg 01/16/21 22:00 01/19/21 22:00 Apixaban 2.5 Mg Tab PO 2.5 mg Q12HR GIAN Administration Protocol Benzocaine/Menthol 1 each 01/16/21 21:06 01/18/21 00:58 Benzocaine/Menthol Lozenge MM 1 each Q2HR PRN Administration Sore Throat Cetirizine HCl 10 mg 01/17/21 10:00 01/19/21 09:14 Cetirizine 10 Mg Tab PO 10 mg DAILY GIAN Administration Cyclobenzaprine HCl 10 mg 01/16/21 22:00 01/18/21 21:07 Cyclobenzaprine 10 Mg Tab PO 10 mg QHS PRN Administration Muscle Spasm Docusate Sodium 100 mg 01/16/21 22:00 01/19/21 22:00 Docusate Sodium 100 Mg Cap PO 100 mg BID GIAN Administration Fluticasone Propionate 50 mcg 01/16/21 13:21 01/16/21 22:10 Fluticasone Propionate Nasal [place] 16 Gm NS 50 mcg PRN PRN Administration Allergy Symptoms Gabapentin 300 mg 01/16/21 14:00 01/20/21 06:26 Gabapentin 300 Mg Cap PO 300 mg Q8HR GIAN Administration Levofloxacin/Dextrose 750 mg in 150 mls @ 100 mls/hr 01/19/21 18:00 01/19/21 17:29 Levaquin 750mg/150ml IV 100 mls/hr Q24H GIAN Administration Protocol Vancomycin HCl 2,000 mg/ 540 mls @ 250 mls/hr 01/19/21 18:30 01/19/21 19:15 Sodium Chloride IV 250 mls/hr Q24H GIAN Administration Lactobacillus Acidophilus 1 each 01/17/21 10:00 01/19/21 09:13 Lactinex Chew Tab PO 1 each QDAY GIAN Administration Magnesium Hydroxide 30 ml 01/16/21 14:00 Magnesium Hydroxide (Mom) Oral Liqd Udc PO Q4H PRN Constipation Metformin HCl 500 mg 01/17/21 08:00 01/19/21 09:18 Metformin 500 Mg Tab PO 500 mg QDDIAB GIAN Administration Multivitamins 1 each 01/17/21 10:00 01/19/21 09:14 Multivitamins ,Therapeutic Tab PO 1 each DAILY GIAN Administration Ondansetron HCl 4 mg 01/16/21 15:00 Ondansetron 4 Mg/2 Ml Inj IV Q8H PRN Nausea And Vomiting Oxycodone/Acetaminophen 1 tab 01/16/21 14:00 01/20/21 02:18 Oxycodone /Acetaminophen 5-325mg Tab PO 1 tab Q6H PRN Administration Pain, Moderate (4-6) Pantoprazole Sodium 40 mg 01/17/21 10:00 01/19/21 09:14 Pantoprazole 40 Mg Tab PO 40 mg DAILY GIAN Administration Sodium Chloride 10 ml 01/16/21 14:00 01/19/21 09:16 Sodium Chloride 0.9% 10 Ml Flush Syringe IV 01/27/21 13:59 10 ml PRN NR Administration Sodium Chloride 10 ml 01/16/21 22:00 01/19/21 22:01 Sodium Chloride 0.9% 10 Ml Flush Syringe IV 10 ml BID GIAN Administration Sodium Chloride 10 ml 01/16/21 14:00 Sodium Chloride 0.9% 10 Ml Flush Syringe IV PRN PRN LINE FLUSH Tamsulosin HCl 0.4 mg 01/17/21 10:00 01/19/21 09:14 Tamsulosin 0.4 Mg Cap PO 0.4 mg QDAY GIAN Administration
[2021-01-20] MEDS: TAMSULOSIN 0.4 MG CAP PO SCH (11:19)
[2021-01-20] MEDS: DOCUSATE SODIUM 100 MG CAP PO SCH ×2 (11:19→21:36)
[2021-01-20] MEDS: APIXABAN 2.5 MG TAB PO SCH ×2 (11:20→21:36)
[2021-01-20] MEDS: LACTINEX CHEW TAB PO SCH (11:22)
[2021-01-20] MEDS: CETIRIZINE 10 MG TAB PO SCH (11:22)
[2021-01-20] MEDS: MULTIVITAMINS ,THERAPEUTIC TAB PO SCH (11:22)
[2021-01-20] MEDS: PANTOPRAZOLE 40 MG TAB PO SCH (11:22)
[2021-01-20] MEDS: metFORMIN 500 MG TAB PO SCH (11:26)
--- NOTE | 2021-01-20 11:56 | Progress Note ---
Subjective Date of service: 01/20/21 Interval history: patient seen, laying on bed comfortably. she walked with PT yesterday throught the hallway Knee inspected no significant swelling, dressing changed, Incision CDI No redness, no clinical psigns of infection in knee, Incision site healing well. ROM 0-90 deg. ROM exercises of the knee recommended. Nurse present in room at all times CX no growth so far. patient under treatment and investigations for fever. Calf soft NT. NVI patient informed and reminded again about her postop visit and followup care with . Objective Vital signs: Vital Signs - 12hr 01/20/21 01/20/21 01/20/21 00:15 03:51 08:14 Temperature 98.4 F 98.5 F Pulse Rate 87 82 Respiratory 18 18 Rate Blood Pressure 115/62 98/52 O2 Sat by Pulse 97 95 98 Oximetry - Labs CBC & BMP: 01/20/21 05:00 01/20/21 05:00 Labs: Abnormal lab results 01/19/21 01/19/21 01/19/21 Range/Units 16:42 19:03 19:03 RBC (3.65-5.03) M/mm3 Hgb (10.1-14.3) gm/dl Hct (30.3-42.9) % D-Dimer 861.39 H (0-234) ng/mlDDU BUN (7-17) mg/dL Creatinine (0.6-1.2) mg/dL Glucose (65-100) mg/dL Calcium (8.4-10.2) mg/dL Ferritin 246.4 H (10.0-200.0) ng/mL C-Reactive Protein 23.00 H (0.00-1.30) mg/dL 01/20/21 01/20/21 Range/Units 05:00 05:00 RBC 2.90 L (3.65-5.03) M/mm3 Hgb 8.3 L (10.1-14.3) gm/dl Hct 25.5 L (30.3-42.9) % D-Dimer (0-234) ng/mlDDU BUN 18 H (7-17) mg/dL Creatinine 1.5 H (0.6-1.2) mg/dL Glucose 114 H (65-100) mg/dL Calcium 8.3 L (8.4-10.2) mg/dL Ferritin (10.0-200.0) ng/mL C-Reactive Protein (0.00-1.30) mg/dL
[2021-01-20] MEDS: BENZOCAINE/MENTHOL LOZENGE MM PRN (15:13)
[2021-01-21] MEDS: HYDROcodone/ACETAMINOPHEN 7.5-325MG TAB PO PRN (05:28)
[2021-01-21] MEDS: GABAPENTIN 300 MG CAP PO SCH ×3 (05:28→21:28)
[2021-01-21 07:36] LABS: Hematocrit 24.2 % (30.3-42.9); Hemoglobin 7.9 gm/dl (10.1-14.3); Mean Corpuscular HGB Conc 33 % (30-34); Mean Corpuscular Volume 87 fl (79-97); Platelet Count 202 K/mm3 (140-440); Red Blood Count 2.78 M/mm3 (3.65-5.03); Red Cell Distribution Width 15.2 % (13.2-15.2)
[2021-01-21 08:00] LABS: Calcium 8.2 mg/dL (8.4-10.2)
[2021-01-21] MEDS: metFORMIN 500 MG TAB PO SCH (08:21)
[2021-01-21] MEDS: CETIRIZINE 10 MG TAB PO SCH (11:18)
[2021-01-21] MEDS: TAMSULOSIN 0.4 MG CAP PO SCH (11:18)
[2021-01-21] MEDS: CYCLOBENZAPRINE 10 MG TAB PO PRN (11:18)
[2021-01-21] MEDS: PANTOPRAZOLE 40 MG TAB PO SCH (11:18)
[2021-01-21] MEDS: APIXABAN 2.5 MG TAB PO SCH ×2 (11:18→21:28)
[2021-01-21] MEDS: LACTINEX CHEW TAB PO SCH (11:18)
[2021-01-21] MEDS: MULTIVITAMINS ,THERAPEUTIC TAB PO SCH (11:18)
[2021-01-21] MEDS: DOCUSATE SODIUM 100 MG CAP PO SCH ×2 (11:18→21:28)
[2021-01-21] MEDS: oxyCODONE /ACETAMINOPHEN 5-325MG TAB PO PRN ×2 (13:50→21:27)
--- NOTE | 2021-01-21 14:45 | Progress Note ---
Assessment and Plan Cultures: Blood culture pending Assessment: 60-year-old female with history of hypertension, morbid obesity, type obesity hypoventilation syndrome, GERD, diabetes mellitus, osteoarthritis, previous left total knee replacement 5 years ago, admitted on 01/09/2021 for elective revision of the left knee undergone on 01/16/2021, now with a fever: #Fever: Of unclear etiology. So far urinalysis negative, chest x-ray negative, patient does have sinus congestion. ? Surgical site infection less likely. Other possibilities DVT. #Malfunctional left total knee replacement: Initially placed 5 years ago, underwent revision of the left knee arthroplasty, removal of the femoral and tibial components. Synovial fluid 330,000 WBC and millions RBCs. Urinalysis negative. Chest x-ray unremarkable. Multiple left knee synovial fluid cultures negative. Recommendations: Continue Levaquin and vancomycin for now Procalcitonin normal CRP elevated in the setting of recent revision arthroplasty; as such difficult to interpret as it relates to possible infection/fevers Monitor fever She has no acute symptoms and knee cultures remain negative. At this point I think she can be discharged with PO antibiotics, Levaquin 750mg q24h PO and doxycycline 100mg q12h for 7 days Discussed with the patient she can serially take temperatures at home, and follow up with me in the clinic in 1 week. Carlos Quinonez MD [facility] O: [phone] F: [phone] Subjective Date of service: 01/21/21 Interval history: Febrile to 100.4, normal white count. Cultures all remain negative. Objective - Exam Narrative Exam: Narrative exam: General appearance: Alert in NAD pleasant Eyes: anicteric sclerae, moist conjunctivae HENT: Normocephalic, Atraumatic; normal external ears, nares open, oropharynx clear with moist mucous membranes and no oral thrush; normal hard and soft palat e. Neck: supple, tracheal midline, no JVD Lungs: CTA, with normal respiratory effort and no intercostal retractions CV: RRR no murmur Abdomen: Soft, non-tender; no masses or hepatosplenomegaly Extremities: Left knee surgical wound with dressings Skin: No rash. Psych: no agitated Neuro: alert and oriented x 3. Moving all extermities - Constitutional Vitals: Vital Signs Temp Pulse Resp BP Pulse Ox 100.1 F H 97 H 17 115/70 98 01/21/21 14:26 01/21/21 14:26 01/21/21 14:26 01/21/21 14:26 01/21/21 14:26 Temperature -Last 24 Hours Temperature 100.1 F Temperature 100.4 F Temperature 98.4 F Temperature 100.1 F Temperature 100.2 F Temperature 100.2 F - Labs CBC & Chem 7: 01/21/21 07:11 01/21/21 07:11 Labs: Abnormal lab results 01/21/21 01/21/21 Range/Units 07:11 07:11 RBC 2.78 L (3.65-5.03) M/mm3 Hgb 7.9 L (10.1-14.3) gm/dl Hct 24.2 L (30.3-42.9) % BUN 18 H (7-17) mg/dL Creatinine 1.5 H (0.6-1.2) mg/dL Glucose 113 H (65-100) mg/dL Calcium 8.2 L (8.4-10.2) mg/dL
[2021-01-21] MEDS: VANCOMYCIN 2,000 MG in SODIUM CHLORIDE 0.9% 500 ML 500 ML IV SCH (14:51)
--- NOTE | 2021-01-21 18:54 | Progress Note ---
Assessment and Plan Assessment and plan: - History of Present Illness 60-year-old female with history of hypertension, morbid obesity, type obesity hypoventilation syndrome, GERD, diabetes mellitus, osteoarthritis, previous left total knee replacement 5 years ago, admitted on 01/09/2021 for elective revision of the left knee. (1) Osteoarthritis, s/p revision of left knee JR on 01/16 Persistent postoperative fever since 01/17 Patient underwent procedure on which include revision of the left knee arthroplasty, removal of the femoral and tibial components. By 01/17/2021 patient started spiking fever 100.8, temperature went up to 101 on 01/19/2021. No leukocytosis since admitted. Creatinine was 1.38 went up to 1.4. Urinalysis negative. Synovial fluid 330,000 WBC 7 four 3 m RBCs. Urinalysis negative. Chest x-ray unremarkable. Multiple left knee synovial fluid cultures negative. Blood cultures 01/18/2021 no growth to date. ID consulted and following. Remains on vancomycin and Levaquin empirically. (2) CKD 3, NORRIS Creatinine slowly rising from 1.2-1.5. Recent baseline creatinine 1.3-1.4. BP is soft. Will administer 1 L of normal saline and monitor BP and creatinine (3) diabetes mellitus Will discontinue Metformin since creatinine elevated (4) GERD (gastroesophageal reflux disease) Current Visit: Yes Status: Acute Qualifiers: Esophagitis presence: without esophagitis Qualified Code(s): K21.9 - Gastro-esophageal reflux disease without esophagitis Plan to address problem: PPI therapy, supportive care, (5) Obesity hypoventilation syndrome Current Visit: Yes Status: Acute Plan to address problem: Balanced diet, increase physical activity discharge, outpatient pulmonary follow-up for sleep study. (4) hypertension Current Visit: Yes Status: Acute Continue home meds (5) History of DVT (deep vein thrombosis) Current Visit: Yes Status: Acute Plan to address problem: Continue therapeutic anticoagulation. (6) DVT prophylaxis Current Visit: Yes Status: Acute Plan to address problem: SCD bilateral lower extremities while in bed, continue therapeutic anticoagulation Also negative for DVT 01/17/21 Patient s/p left knee arthroplasty yesterday. She is doing well. Mi nimal pain left knee. PT to see. 01/18/21 Patient with osteoarthritis s/p left knee arthroplasty on 01/16/[address] patrick. She has been having fevers since yesterday highest 100.8. UA was negative yesterday. Blood cultures x2 ordered. Will also obtain Chest x ray. 01/19/21 Patient had left knee arthroplasty on 01/16/21 for osteoarthritis. now having persistent fevers. T max 100.8. WBC normal. Urinalysis neg, CXR neg, Doppler US legs neg. Blood cultures ordered:no growth after 24 hrs. Urine cultures ordered. No source of infection seen. Will consult ID for further evaluation. Discussed w jose Patrick, Orthopedic Surgeon. 01/20/21 Patient had left knee arthroplasty on 01/16/21 for osteoarthritis. She now has persistent fevers. T max 101.5. WBC normal. Urinalysis neg, CXR neg, Doppler US legs neg. Blood cultures ordered:no growth after 24 hrs. Urine cultures ordered. No obvious source of infection seen. Consulted ID and she was seen by Dr. Nixon. She ordered repeat Covid-testing, Procalcitonin neg. Discussed with ID Physician. 01/21/2021: Patient remains fairly asymptomatic and ambulating. BP soft with rising creatinine. Ordered NS bolus. Discontinue Metformin. Low-grade fever persistent. Cultures negative. On empiric antibiotic therapy, vancomycin and Levaquin, ID following History Interval history: Patient reports ambulating with PT. Knee pain is controlled. T-max 1.2 but no leukocytosis since admitted. Cultures negative to date. On Levaquin and vancomycin. BP soft and creatinine is rising, 1.5 today. Patient denies sluggishness or lightheadedness. No cough or dyspnea. No chills. She is alert and comfortable. Hospitalist Physical - Constitutional Vitals: Temp Pulse Resp BP Pulse Ox 100.1 F H 97 H 17 115/70 98 01/21/21 14:26 01/21/21 14:26 01/21/21 14:26 01/21/21 14:26 01/21/21 14:26 General appearance: Present: no acute distress, obese - EENT Eyes: Present: PERRL, EOM intact ENT: clear oral mucosa - Neck Neck: Present: supple - Respiratory Respiratory effort: normal Respiratory: bilateral: CTA - Cardiovascular Rhythm: regular - Extremities Extremity abnormal: erythema (2 to 3+ swelling below left knee with the knee compression dressings in place.) - Abdominal General gastrointestinal: soft, non-tender - Integumentary Integumentary: Absent: rash - Psychiatric Psychiatric: appropriate mood/affect - Neurologic Neurologic: no focal deficits, moves all extremities Results - Labs CBC & Chem 7: 01/21/21 07:11 01/21/21 07:11 Labs: Laboratory Last Values WBC 5.0 K/mm3 (4.5-11.0) 01/21/21 07:11 RBC 2.78 M/mm3 (3.65-5.03) L 01/21/21 07:11 Hgb 7.9 gm/dl (10.1-14.3) L 01/21/21 07:11 Hct 24.2 % (30.3-42.9) L 01/21/21 07:11 MCV 87 fl (79-97) 01/21/21 07:11 MCH 29 pg (28-32) 01/21/21 07:11 MCHC 33 % (30-34) 01/21/21 07:11 RDW 15.2 % (13.2-15.2) 01/21/21 07:11 Plt Count 202 K/mm3 (140-440) 01/21/21 07:11 PT 13.2 Sec. (12.2-14.9) 01/16/21 15:23 INR 0.90 (0.87-1.13) 01/16/21 15:23 APTT 25.4 Sec. (24.2-36.6) 01/16/21 15:23 D-Dimer 861.39 ng/mlDDU (0-234) H 01/19/21 19:03 Sodium 139 mmol/L (137-145) 01/21/21 07:11 Potassium 4.0 mmol/L (3.6-5.0) 01/21/21 07:11 Chloride 102.3 mmol/L (98-107) 01/21/21 07:11 Carbon Dioxide 24 mmol/L (22-30) 01/21/21 07:11 Anion Gap 17 mmol/L 01/21/21 07:11 BUN 18 mg/dL (7-17) H 01/21/21 07:11 Creatinine 1.5 mg/dL (0.6-1.2) H 01/21/21 07:11 Estimated GFR 43 ml/min 01/21/21 07:11 BUN/Creatinine Ratio 12 % 01/21/21 07:11 Glucose 113 mg/dL (65-100) H 01/21/21 07:11 POC Glucose 144 mg/dL (70-105) H 01/16/21 13:51 Calcium 8.2 mg/dL (8.4-10.2) L 01/21/21 07:11 Ferritin 246.4 ng/mL (10.0-200.0) H 01/19/21 19:03 C-Reactive Protein 23.00 mg/dL (0.00-1.30) H 01/19/21 16:42 Procalcitonin 0.06 ng/mL (<0.15) 01/19/21 16:42 Urine Color Colorless (Yellow) 01/17/21 Unknown Urine Turbidity Clear (Clear) 01/17/21 Unknown Urine pH 5.0 (5.0-7.0) 01/17/21 Unknown Ur Specific [place] 1.004 (1.003-1.030) 01/17/21 Unknown Urine Protein <15 mg/dl mg/dL (Negative) 01/17/21 Unknown Urine Glucose (UA) Neg mg/dL (Negative) 01/17/21 Unknown Urine Ketones Neg mg/dL (Negative) 01/17/21 Unknown Urine Blood Sm (Negative) 01/17/21 Unknown Urine Nitrite Neg (Negative) 01/17/21 Unknown Urine Bilirubin Neg (Negative) 01/17/21 Unknown Urine Urobilinogen < 2.0 mg/dL (<2.0) 01/17/21 Unknown Ur Leukocyte Esterase Neg (Negative) 01/17/21 Unknown Urine WBC (Auto) < 1.0 /HPF (0.0-6.0) 01/17/21 Unknown Urine RBC (Auto) 1.0 /HPF (0.0-6.0) 01/17/21 Unknown Fluid Type Synovial 01/16/21 Unknown Fluid Color Colorless 01/16/21 Unknown Fluid Appearance Clear 01/16/21 Unknown Fluid WBC 239958 /mm3 01/16/21 Unknown Fluid RBC [id number] /mm3 01/16/21 Unknown Fluid Seg Neutrophils 0 % 01/16/21 Unknown Fluid Lymphocytes 48.0 % 01/16/21 Unknown Fluid Reactive Lymphs 0 % 01/16/21 Unknown Fluid Monocytes 52.0 % 01/16/21 Unknown Fluid Eosinophils 0 % 01/16/21 Unknown Fluid Basophils 0 % 01/16/21 Unknown Coronavirus (PCR) Negative (Negative) 01/20/21 Unknown Blood Type A POSITIVE 01/16/21 06:40 Antibody Screen Negative 01/16/21 06:40 Crossmatch See Detail 01/16/21 06:40 Microbiology: Microbiology 01/18/21 15:45 Urine,Clean Catch Urine Culture - Final NO GROWTH AFTER 48 HOURS 01/18/21 09:02 Peripheral/Venous Blood Culture - Preliminary NO GROWTH AFTER 72 HOURS 01/18/21 09:02 Peripheral/Venous Blood Culture - Preliminary NO GROWTH AFTER 72 HOURS 01/16/21 14:00 Knee - Left Anaerobic Culture - Final 01/16/21 14:00 Knee - Left Surgical Biopsy Culture - Final 01/16/21 14:00 Knee - Left Anaerobic Culture - Final 01/16/21 14:00 Synovial Fluid - Left Knee Anaerobic Culture - Final 01/16/21 14:00 Synovial Fluid - Left Knee Surgical Culture - Final 01/16/21 14:00 Knee - Left Surgical Culture - Final 01/16/21 14:00 Knee - Left Surgical Culture - Final Collier/IV: Voiding Method Toilet Active Medications - Current Medications Current Medications: Generic Name Dose Route Start Last Admin Trade Name Freq PRN Reason Stop Dose Admin Acetaminophen 650 mg 01/16/21 14:00 01/19/21 17:28 Acetaminophen 325 Mg Tab PO 650 mg Q4H PRN Administration Pain MILD(1-3)/Fever >100.5/DELACRUZ Hydrocodone Bitart/Acetaminophen 1 each 01/16/21 14:00 01/21/21 05:28 Hydrocodone/Acetaminophen 7.5-325mg Tab PO 1 each Q4H PRN Administration Pain, Moderate (4-6) Albuterol 2.5 mg 01/16/21 16:00 Albuterol 2.5 Mg/3 Ml Nebu IH Q4HRT PRN Shortness Of Breath Apixaban 2.5 mg 01/16/21 22:00 01/21/21 11:18 Apixaban 2.5 Mg Tab PO 2.5 mg Q12HR GIAN Administration Protocol Benzocaine/Menthol 1 each 01/16/21 21:06 01/20/21 15:13 Benzocaine/Menthol Lozenge MM 1 each Q2HR PRN Administration Sore Throat Cetirizine HCl 10 mg 01/17/21 10:00 01/21/21 11:18 Cetirizine 10 Mg Tab PO 10 mg DAILY GIAN Administration Cyclobenzaprine HCl 10 mg 01/16/21 22:00 01/21/21 11:18 Cyclobenzaprine 10 Mg Tab PO 10 mg QHS PRN Administration Muscle Spasm Docusate Sodium 100 mg 01/16/21 22:00 01/21/21 11:18 Docusate Sodium 100 Mg Cap PO 100 mg BID GIAN Administration Fluticasone Propionate 50 mcg 01/16/21 13:21 01/16/21 22:10 Fluticasone Propionate Nasal [place] 16 Gm NS 50 mcg PRN PRN Administration Allergy Symptoms Gabapentin 300 mg 01/16/21 14:00 01/21/21 13:51 Gabapentin 300 Mg Cap PO 300 mg Q8HR GIAN Administration Levofloxacin/Dextrose 750 mg in 150 mls @ 100 mls/hr 01/19/21 18:00 01/20/21 18:58 Levaquin 750mg/150ml IV 100 mls/hr Q24H GIAN Administration Protocol Vancomycin HCl 2,000 mg/ 540 mls @ 250 mls/hr 01/21/21 14:00 01/21/21 14:51 Sodium Chloride IV 250 mls/hr Q24H GIAN Administration Lactobacillus Acidophilus 1 each 01/17/21 10:00 01/21/21 11:18 Lactinex Chew Tab PO 1 each QDAY GIAN Administration Magnesium Hydroxide 30 ml 01/16/21 14:00 Magnesium Hydroxide (Mom) Oral Liqd Udc PO Q4H PRN Constipation Metformin HCl 500 mg 01/17/21 08:00 01/21/21 08:21 Metformin 500 Mg Tab PO 500 mg QDDIAB GIAN Administration Multivitamins 1 each 01/17/21 10:00 01/21/21 11:18 Multivitamins ,Therapeutic Tab PO 1 each DAILY GIAN Administration Ondansetron HCl 4 mg 01/16/21 15:00 Ondansetron 4 Mg/2 Ml Inj IV Q8H PRN Nausea And Vomiting Oxycodone/Acetaminophen 1 tab 01/16/21 14:00 01/21/21 13:50 Oxycodone /Acetaminophen 5-325mg Tab PO 1 tab Q6H PRN Administration Pain, Moderate (4-6) Pantoprazole Sodium 40 mg 01/17/21 10:00 01/21/21 11:18 Pantoprazole 40 Mg Tab PO 40 mg DAILY GIAN Administration Sodium Chloride 10 ml 01/16/21 14:00 01/20/21 21:37 Sodium Chloride 0.9% 10 Ml Flush Syringe IV 01/27/21 13:59 10 ml PRN NR Administration Sodium Chloride 10 ml 01/16/21 22:00 01/21/21 14:52 Sodium Chloride 0.9% 10 Ml Flush Syringe IV 10 ml BID GIAN Administration Sodium Chloride 10 ml 01/16/21 14:00 Sodium Chloride 0.9% 10 Ml Flush Syringe IV PRN PRN LINE FLUSH Tamsulosin HCl 0.4 mg 01/17/21 10:00 01/21/21 11:18 Tamsulosin 0.4 Mg Cap PO 0.4 mg QDAY GIAN Administration
[2021-01-22] MEDS: oxyCODONE /ACETAMINOPHEN 5-325MG TAB PO PRN ×3 (05:27→17:41)
[2021-01-22] MEDS: GABAPENTIN 300 MG CAP PO SCH ×3 (05:27→21:51)
[2021-01-22] MEDS ORDERED: SODIUM CHLORIDE 0.9% 1000 ML 1,000 ML IV ONE (06:51)
[2021-01-22] MEDS: FLUTICASONE PROPIONATE NASAL SPRAY 16 GM NS PRN (08:32)
[2021-01-22] MEDS: HYDROcodone/ACETAMINOPHEN 7.5-325MG TAB PO PRN ×3 (08:32→21:49)
[2021-01-22] MEDS: LACTINEX CHEW TAB PO SCH (10:03)
[2021-01-22] MEDS: MULTIVITAMINS ,THERAPEUTIC TAB PO SCH (10:03)
[2021-01-22] MEDS: DOCUSATE SODIUM 100 MG CAP PO SCH ×2 (10:04→21:50)
[2021-01-22] MEDS: TAMSULOSIN 0.4 MG CAP PO SCH (10:04)
[2021-01-22] MEDS: PANTOPRAZOLE 40 MG TAB PO SCH (10:04)
[2021-01-22] MEDS: CETIRIZINE 10 MG TAB PO SCH (10:04)
[2021-01-22] MEDS: APIXABAN 2.5 MG TAB PO SCH ×2 (10:04→21:51)
[2021-01-22 10:23] LABS: Calcium 9.2 mg/dL (8.4-10.2)
--- NOTE | 2021-01-22 13:58 | Progress Note ---
Subjective Date of service: 01/22/21 Interval history: patient seen, doing well, dressing dry, nvi no redness in knee. painfree ROM temp getting better, under care of hospitalist and ID DC plan with Home health and Home PT for a week, followed by Outpatient PT after aweek. Eliquis for DVT for 5-6 weeks. TKA DC instructions sheet Objective Vital signs: Vital Signs - 12hr 01/22/21 01/22/21 01/22/21 03:43 08:14 11:00 Temperature 98.8 F 98.3 F Pulse Rate 64 77 Respiratory 16 20 Rate Blood Pressure 90/52 124/73 O2 Sat by Pulse 96 96 99 Oximetry - Labs CBC & BMP: 01/21/21 07:11 01/22/21 09:33 Labs: Abnormal lab results 01/22/21 01/22/21 Range/Units 04:35 09:33 BUN 18 H (7-17) mg/dL Creatinine 1.6 H 1.5 H (0.6-1.2) mg/dL Glucose 130 H (65-100) mg/dL
--- NOTE | 2021-01-22 13:59 | Progress Note ---
Assessment and Plan Cultures: Blood culture pending Assessment: 60-year-old female with history of hypertension, morbid obesity, type obesity hypoventilation syndrome, GERD, diabetes mellitus, osteoarthritis, previous left total knee replacement 5 years ago, admitted on 01/09/2021 for elective revision of the left knee undergone on 01/16/2021, now with a fever: #Fever: Of unclear etiology. So far urinalysis negative, chest x-ray negative, patient does have sinus congestion. ? Surgical site infection less likely. Other possibilities DVT. #Malfunctional left total knee replacement: Initially placed 5 years ago, underwent revision of the left knee arthroplasty, removal of the femoral and tibial components. Synovial fluid 330,000 WBC and millions RBCs. Urinalysis negative. Chest x-ray unremarkable. Multiple left knee synovial fluid cultures negative. Recommendations: Continue Levaquin and vancomycin for now Procalcitonin normal CRP elevated in the setting of recent revision arthroplasty; as such difficult to interpret as it relates to possible infection/fevers Monitor fever She has no acute symptoms and knee cultures remain negative. At this point I think she can be discharged with PO antibiotics, Levaquin 750mg q24h PO and doxycycline 100mg q12h for 7 days Discussed with the patient she can serially take temperatures at home, and follow up with me in the clinic in 1 week. Carlos Quinonez MD [facility] ([facility] O: [phone] F: [phone] Subjective Date of service: 01/22/21 Interval history: Afebrile overnight, normal white count. All cultures remain negative at this time. Objective - Exam Narrative Exam: Narrative exam: General appearance: Alert in NAD pleasant Eyes: anicteric sclerae, moist conjunctivae HENT: Normocephalic, Atraumatic; normal external ears, nares open, oropharynx clear with moist mucous membranes and no oral thrush; normal hard and soft palate. Neck: supple, tracheal midline, no JVD Lungs: CTA, with normal respiratory effort and no intercostal retractions CV: RRR no murmur Abdomen: Soft, non-tender; no masses or hepatosplenomegaly Extremities: Left knee surgical wound with dressings Skin: No rash. Psych: no agitated Neuro: alert and oriented x 3. Moving all extermities - Constitutional Vitals: Vital Signs Temp Pulse Resp BP Pulse Ox 98.3 F 77 20 124/73 99 01/22/21 08:14 01/22/21 08:14 01/22/21 08:14 01/22/21 08:14 01/22/21 11:00 Temperature -Last 24 Hours Temperature 98.3 F Temperature 98.8 F Temperature 98.8 F Temperature 99.2 F Temperature 100.1 F - Labs CBC & Chem 7: 01/21/21 07:11 01/22/21 09:33 Labs: Abnormal lab results 01/22/21 01/22/21 Range/Units 04:35 09:33 BUN 18 H (7-17) mg/dL Creatinine 1.6 H 1.5 H (0.6-1.2) mg/dL Glucose 130 H (65-100) mg/dL
[2021-01-22] MEDS: VANCOMYCIN 2,000 MG in SODIUM CHLORIDE 0.9% 500 ML 500 ML IV SCH (15:40)
--- NOTE | 2021-01-22 19:23 | Progress Note ---
Assessment and Plan Assessment and plan: - History of Present Illness 60-year-old female with history of hypertension, morbid obesity, type obesity hypoventilation syndrome, GERD, diabetes mellitus, osteoarthritis, previous left total knee replacement 5 years ago, admitted on 01/09/2021 for elective revision of the left knee. (1) Osteoarthritis, s/p revision of left knee JR on 01/16 Persistent postoperative fever since 01/17 Patient underwent procedure on which include revision of the left knee arthroplasty, removal of the femoral and tibial components. By 01/17/2021 patient started spiking fever 100.8, temperature went up to 101 on 01/19/2021. No leukocytosis since admitted. Creatinine was 1.38 went up to 1.4. Urinalysis negative. Synovial fluid 330,000 WBC 7 four 3 m RBCs. Urinalysis negative. Chest x-ray unremarkable. Multiple left knee synovial fluid cultures negative. Blood cultures 01/18/2021 no growth to date. ID consulted and following. Remains on vancomycin and Levaquin empirically. Fever is resolving, none today. Cultures remain negative. (2) CKD 3, NORRIS Creatinine slowly rising from 1.2-1.5. Recent baseline creatinine 1.3-1.4. BP is soft. Given 1 L of normal saline and monitoring BP and creatinine Stopped Metformin (3) diabetes mellitus Will discontinue Metformin since creatinine elevated (4) GERD (gastroesophageal reflux disease) Current Visit: Yes Status: Acute Qualifiers: Esophagitis presence: without esophagitis Qualified Code(s): K21.9 - Gastro-esophageal reflux disease without esophagitis Plan to address problem: PPI therapy, supportive care, (5) Obesity hypoventilation syndrome Current Visit: Yes Status: Acute Plan to address problem: Balanced diet, increase physical activity discharge, outpatient pulmonary follow-up for sleep study. (4) hypertension Current Visit: Yes Status: Acute Continue home meds (5) History of DVT (deep vein thrombosis) Current Visit: Yes Status: Acute Plan to address problem: Continue therapeutic anticoagulation. (6) DVT prophylaxis Current Visit: Yes Status: Acute Plan to address problem: SCD bilateral lower extremities while in bed, continue therapeutic anticoagulation Also negative for DVT 01/17/21 Patient s/p left knee arthroplasty yesterday. She is doing well. Minimal pain left knee. PT to see. 01/18/21 Patient with osteoarthritis s/p left knee arthroplasty on 01/16/[address] patrick. She has been having fevers since yesterday highest 100.8. UA was negative yesterday. Blood cultures x2 ordered. Will also obtain Chest x ray. 01/19/21 Patient had left knee arthroplasty on 01/16/21 for osteoarthritis. now having persistent fevers. T max 100.8. WBC normal. Urinalysis neg, CXR neg, Doppler US legs neg. Blood cultures ordered:no growth after 24 hrs. Urine cultures ordered. No source of infection seen. Will consult ID for further evaluation. Discussed with Dr. Patrick, Orthopedic Surgeon. 01/20/21 Patient had left knee arthroplasty on 01/16/21 for osteoarthritis. She now has persistent fevers. T max 101.5. WBC normal. Urinalysis neg, CXR neg, Doppler US legs neg. Blood cultures ordered:no growth after 24 hrs. Urine cultures ordered. No obvious source of infection seen. Consulted ID and she was seen by Dr. Nixon. She ordered repeat Covid-testing, Procalcitonin neg. Discussed with ID Physician. 01/21/2021: Patient remains fairly asymptomatic and ambulating. BP soft with rising creatinine. Ordered NS bolus. Discontinue Metformin. Low-grade fever persistent. Cultures negative. On empiric antibiotic therapy, vancomycin and Levaquin, ID following 01/22/2021: BP remains soft and was given NS bolus. Creatinine is elevated and being monitored. Fever seems to be resolving. Possible discharge tomorrow if renal function improves. History Interval history: Fever seems to resolving, none today. Hypotensive with BP 86/41 and improved to 124/70 1:03 liter normal saline bolus. Creatinine is rising from 1.3-1.6, today 1.5. Stopped Metformin. Patient remains fully alert without complaints. She denies dizziness/lightheadedness and generalized weakness. She is ambulating in the hallways. No diarrhea. No chills. Patient claims that she is drinking fluids well. Hospitalist Physical - Constitutional Vitals: Temp Pulse Resp BP Pulse Ox 99.3 F 77 20 117/65 99 01/22/21 15:09 01/22/21 18:00 01/22/21 15:09 01/22/21 15:09 01/22/21 15:09 General appearance: Present: no acute distress, obese - EENT Eyes: Present: PERRL, EOM intact ENT: clear oral mucosa - Neck Neck: Present: supple - Respiratory Respiratory effort: normal Respiratory: bilateral: CTA - Cardiovascular Rhythm: regular - Extremities Extremity abnormal: edema, other (To 3+ swelling below left knee without erythema or tenderness.) - Abdominal General gastrointestinal: soft, non-tender, normal bowel sounds, other (Obese) - Integumentary Integumentary: Absent: rash - Neurologic Neurologic: no focal deficits, moves all extremities Results - Labs CBC & Chem 7: 01/21/21 07:11 01/22/21 09:33 Labs: Laboratory Last Values WBC 5.0 K/mm3 (4.5-11.0) 01/21/21 07:11 RBC 2.78 M/mm3 (3.65-5.03) L 01/21/21 07:11 Hgb 7.9 gm/dl (10.1-14.3) L 01/21/21 07:11 Hct 24.2 % (30.3-42.9) L 01/21/21 07:11 MCV 87 fl (79-97) 01/21/21 07:11 MCH 29 pg (28-32) 01/21/21 07:11 MCHC 33 % (30-34) 01/21/21 07:11 RDW 15.2 % (13.2-15.2) 01/21/21 07:11 Plt Count 202 K/mm3 (140-440) 01/21/21 07:11 PT 13.2 Sec. (12.2-14.9) 01/16/21 15:23 INR 0.90 (0.87-1.13) 01/16/21 15:23 APTT 25.4 Sec. (24.2-36.6) 01/16/21 15:23 D-Dimer 861.39 ng/mlDDU (0-234) H 01/19/21 19:03 Sodium 141 mmol/L (137-145) 01/22/21 09:33 Potassium 4.2 mmol/L (3.6-5.0) 01/22/21 09:33 Chloride 99.8 mmol/L (98-107) 01/22/21 09:33 Carbon Dioxide 25 mmol/L (22-30) 01/22/21 09:33 Anion Gap 20 mmol/L 01/22/21 09:33 BUN 18 mg/dL (7-17) H 01/22/21 09:33 Creatinine 1.5 mg/dL (0.6-1.2) H 01/22/21 09:33 Estimated GFR 43 ml/min 01/22/21 09:33 BUN/Creatinine Ratio 12 % 01/22/21 09:33 Glucose 130 mg/dL (65-100) H 01/22/21 09:33 POC Glucose 129 mg/dL (70-105) H 01/22/21 15:53 Calcium 9.2 mg/dL (8.4-10.2) 01/22/21 09:33 Ferritin 246.4 ng/mL (10.0-200.0) H 01/19/21 19:03 C-Reactive Protein 23.00 mg/dL (0.00-1.30) H 01/19/21 16:42 Procalcitonin 0.06 ng/mL (<0.15) 01/19/21 16:42 Urine Color Colorless (Yellow) 01/17/21 Unknown Urine Turbidity Clear (Clear) 01/17/21 Unknown Urine pH 5.0 (5.0-7.0) 01/17/21 Unknown Ur Specific [place] 1.004 (1.003-1.030) 01/17/21 Unknown Urine Protein <15 mg/dl mg/dL (Negative) 01/17/21 Unknown Urine Glucose (UA) Neg mg/dL (Negative) 01/17/21 Unknown Urine Ketones Neg mg/dL (Negative) 01/17/21 Unknown Urine Blood Sm (Negative) 01/17/21 Unknown Urine Nitrite Neg (Negative) 01/17/21 Unknown Urine Bilirubin Neg (Negative) 01/17/21 Unknown Urine Urobilinogen < 2.0 mg/dL (<2.0) 01/17/21 Unknown Ur Leukocyte Esterase Neg (Negative) 01/17/21 Unknown Urine WBC (Auto) < 1.0 /HPF (0.0-6.0) 01/17/21 Unknown Urine RBC (Auto) 1.0 /HPF (0.0-6.0) 01/17/21 Unknown Fluid Type Synovial 01/16/21 Unknown Fluid Color Colorless 01/16/21 Unknown Fluid Appearance Clear 01/16/21 Unknown Fluid WBC 076517 /mm3 01/16/21 Unknown Fluid RBC 36001097 /mm3 01/16/21 Unknown Fluid Seg Neutrophils 0 % 01/16/21 Unknown Fluid Lymphocytes 48.0 % 01/16/21 Unknown Fluid Reactive Lymphs 0 % 01/16/21 Unknown Fluid Monocytes 52.0 % 01/16/21 Unknown Fluid Eosinophils 0 % 01/16/21 Unknown Fluid Basophils 0 % 01/16/21 Unknown Coronavirus (PCR) Negative (Negative) 01/20/21 Unknown Blood Type A POSITIVE 01/16/21 06:40 Antibody Screen Negative 01/16/21 06:40 Crossmatch See Detail 01/16/21 06:40 Microbiology: Microbiology 01/18/21 09:02 Peripheral/Venous Blood Culture - Preliminary NO GROWTH AFTER 4 DAYS 01/18/21 09:02 Peripheral/Venous Blood Culture - Preliminary NO GROWTH AFTER 4 DAYS [place]/IV: Voiding Method Toilet Active Medications - Current Medications Current Medications: Generic Name Dose Route Start Last Admin Trade Name Freq PRN Reason Stop Dose Admin Acetaminophen 650 mg 01/16/21 14:00 01/19/21 17:28 Acetaminophen 325 Mg Tab PO 650 mg Q4H PRN Administration Pain MILD(1-3)/Fever >100.5/DELACRUZ Hydrocodone Bitart/Acetaminophen 1 each 01/16/21 14:00 01/22/21 13:57 Hydrocodone/Acetaminophen 7.5-325mg Tab PO 1 each Q4H PRN Administration Pain, Moderate (4-6) Albuterol 2.5 mg 01/16/21 16:00 Albuterol 2.5 Mg/3 Ml Nebu IH Q4HRT PRN Shortness Of Breath Apixaban 2.5 mg 01/16/21 22:00 01/22/21 10:04 Apixaban 2.5 Mg Tab PO 2.5 mg Q12HR GIAN Administration Protocol Benzocaine/Menthol 1 each 01/16/21 21:06 01/20/21 15:13 Benzocaine/Menthol Lozenge MM 1 each Q2HR PRN Administration Sore Throat Cetirizine HCl 10 mg 01/17/21 10:00 01/22/21 10:04 Cetirizine 10 Mg Tab PO 10 mg DAILY GIAN Administration Cyclobenzaprine HCl 10 mg 01/16/21 22:00 01/21/21 11:18 Cyclobenzaprine 10 Mg Tab PO 10 mg QHS PRN Administration Muscle Spasm Docusate Sodium 100 mg 01/16/21 22:00 01/22/21 10:04 Docusate Sodium 100 Mg Cap PO 100 mg BID GIAN Administration Fluticasone Propionate 50 mcg 01/16/21 13:21 01/22/21 08:32 Fluticasone Propionate Nasal [place] 16 Gm NS 50 mcg PRN PRN Administration Allergy Symptoms Gabapentin 300 mg 01/16/21 14:00 01/22/21 13:57 Gabapentin 300 Mg Cap PO 300 mg Q8HR GIAN Administration Levofloxacin/Dextrose 750 mg in 150 mls @ 100 mls/hr 01/19/21 18:00 01/22/21 18:26 Levaquin 750mg/150ml IV 100 mls/hr Q24H GIAN Administration Protocol Vancomycin HCl 2,000 mg/ 540 mls @ 250 mls/hr 01/21/21 14:00 01/22/21 15:40 Sodium Chloride IV 250 mls/hr Q24H GIAN Administration Lactobacillus Acidophilus 1 each 01/17/21 10:00 01/22/21 10:03 Lactinex Chew Tab PO 1 each QDAY GIAN Administration Magnesium Hydroxide 30 ml 01/16/21 14:00 Magnesium Hydroxide (Mom) Oral Liqd Udc PO Q4H PRN Constipation Multivitamins 1 each 01/17/21 10:00 01/22/21 10:03 Multivitamins ,Therapeutic Tab PO 1 each DAILY GIAN Administration Ondansetron HCl 4 mg 01/16/21 15:00 Ondansetron 4 Mg/2 Ml Inj IV Q8H PRN Nausea And Vomiting Oxycodone/Acetaminophen 1 tab 01/16/21 14:00 01/22/21 17:41 Oxycodone /Acetaminophen 5-325mg Tab PO 1 tab Q6H PRN Administration Pain, Moderate (4-6) Pantoprazole Sodium 40 mg 01/17/21 10:00 01/22/21 10:04 Pantoprazole 40 Mg Tab PO 40 mg DAILY GIAN Administration Sodium Chloride 10 ml 01/16/21 14:00 01/21/21 21:29 Sodium Chloride 0.9% 10 Ml Flush Syringe IV 01/27/21 13:59 10 ml PRN NR Administration Sodium Chloride 10 ml 01/16/21 22:00 01/22/21 11:52 Sodium Chloride 0.9% 10 Ml Flush Syringe IV 10 ml BID GIAN Administration Sodium Chloride 10 ml 01/16/21 14:00 Sodium Chloride 0.9% 10 Ml Flush Syringe IV PRN PRN LINE FLUSH Tamsulosin HCl 0.4 mg 01/17/21 10:00 01/22/21 10:04 Tamsulosin 0.4 Mg Cap PO 0.4 mg QDAY GIAN Administration
[2021-01-22] MEDS: CYCLOBENZAPRINE 10 MG TAB PO PRN (21:50)
[2021-01-23] MEDS: ACETAMINOPHEN 325 MG TAB PO PRN ×2 (06:50→19:34)
[2021-01-23] MEDS: GABAPENTIN 300 MG CAP PO SCH ×3 (06:50→21:45)
[2021-01-23] MEDS: oxyCODONE /ACETAMINOPHEN 5-325MG TAB PO PRN ×2 (06:52→16:32)
[2021-01-23] MEDS: CETIRIZINE 10 MG TAB PO SCH (09:17)
[2021-01-23] MEDS: LACTINEX CHEW TAB PO SCH (09:17)
[2021-01-23] MEDS: PANTOPRAZOLE 40 MG TAB PO SCH (09:17)
[2021-01-23] MEDS: APIXABAN 2.5 MG TAB PO SCH ×2 (09:18→21:44)
[2021-01-23] MEDS: TAMSULOSIN 0.4 MG CAP PO SCH (09:18)
[2021-01-23] MEDS: DOCUSATE SODIUM 100 MG CAP PO SCH ×2 (09:18→21:45)
[2021-01-23] MEDS: MULTIVITAMINS ,THERAPEUTIC TAB PO SCH (09:18)
[2021-01-23 09:19] LABS: Basophils # (Auto) 0.1 K/mm3 (0.0-0.1); Basophils % (Auto) 1.2 % (0.0-1.8); Eosinophils # (Auto) 0.2 K/mm3 (0.0-0.4); Eosinophils % (Auto) 3.8 % (0.0-4.3); Hematocrit 27.7 % (30.3-42.9); Hemoglobin 8.9 gm/dl (10.1-14.3); Lymphocytes # (Auto) 1.8 K/mm3 (1.2-5.4); Lymphocytes % (Auto) 27.9 % (13.4-35.0); Mean Corpuscular HGB Conc 32 % (30-34); Mean Corpuscular Volume 87 fl (79-97); Monocytes # (Auto) 0.6 K/mm3 (0.0-0.8); Monocytes % (Auto) 8.8 % (0.0-7.3); Platelet Count 272 K/mm3 (140-440); Red Blood Count 3.17 M/mm3 (3.65-5.03); Red Cell Distribution Width 15.1 % (13.2-15.2)
[2021-01-23 09:38] LABS: Albumin 3.6 g/dL (3.9-5)
[2021-01-23] MEDS: HYDROcodone/ACETAMINOPHEN 7.5-325MG TAB PO PRN ×2 (11:18→21:45)
[2021-01-23] MEDS: DOXYCYCLINE 100 MG CAP PO SCH ×2 (14:08→21:44)
[2021-01-23] MEDS: levoFLOXacin 750 MG TAB PO SCH (14:08)
[2021-01-23] MEDS: FLUCONAZOLE 200 MG TAB PO SCH (16:10)
--- NOTE | 2021-01-23 16:27 | Progress Note ---
Assessment and Plan Cultures: Blood culture pending Assessment: 60-year-old female with history of hypertension, morbid obesity, type obesity hypoventilation syndrome, GERD, diabetes mellitus, osteoarthritis, previous left total knee replacement 5 years ago, admitted on 01/09/2021 for elective revision of the left knee undergone on 01/16/2021, now with a fever: #Fever: Of unclear etiology. So far urinalysis negative, chest x-ray negative, patient does have sinus congestion. ? Surgical site infection less likely. Other possibilities DVT. #Malfunctional left total knee replacement: Initially placed 5 years ago, underwent revision of the left knee arthroplasty, removal of the femoral and tibial components. Synovial fluid 330,000 WBC and millions RBCs. Urinalysis negative. Chest x-ray unremarkable. Multiple left knee synovial fluid cultures negative. Recommendations: Continue Levaquin and vancomycin for now Procalcitonin normal CRP elevated in the setting of recent revision arthroplasty; as such difficult to interpret as it relates to possible infection/fevers Monitor fever She has no acute symptoms and knee cultures remain negative. At this point I think she can be discharged with PO antibiotics, Levaquin 750mg q24h PO and doxycycline 100mg q12h for 7 days Discussed with the patient she can serially take temperatures at home, and follow up with me in the clinic in 1 week. ID will sign off, please call with questions. Carlos Quinonez MD [facility] ([facility] O: [phone] F: [phone] Subjective Date of service: 01/23/21 Interval history: Afebrile, white count 6.3. No new complaints. Objective - Exam Narrative Exam: Narrative exam: General appearance: Alert in NAD pleasant Eyes: anicteric sclerae, moist conjunctivae HENT: Normocephalic, Atraumatic; normal external ears, nares open, oropharynx clear with moist mucous membranes and no oral thrush; normal hard and soft palate. Neck: supple, tracheal midline, no JVD Lungs: CTA, with normal respiratory effort and no intercostal retractions CV: RRR no murmur Abdomen: Soft, non-tender; no masses or hepatosplenomegaly Extremities: Left knee surgical wound with dressings Skin: No rash. Psych: no agitated Neuro: alert and oriented x 3. Moving all extermities - Constitutional Vitals: Vital Signs Temp Pulse Resp BP Pulse Ox 98.9 F 76 18 103/56 98 01/23/21 11:38 01/23/21 11:38 01/23/21 11:38 01/23/21 11:38 01/23/21 11:38 Temperature -Last 24 Hours Temperature 98.9 F Temperature 98.7 F Temperature 98.8 F Temperature 98.6 F Temperature 99.5 F - Labs CBC & Chem 7: 01/23/21 09:05 01/23/21 09:05 Labs: Abnormal lab results 01/23/21 01/23/21 Range/Units 09:05 09:05 RBC 3.17 L (3.65-5.03) M/mm3 Hgb 8.9 L (10.1-14.3) gm/dl Hct 27.7 L (30.3-42.9) % [place] % (Auto) 8.8 H (0.0-7.3) % BUN 19 H (7-17) mg/dL Creatinine 1.5 H (0.6-1.2) mg/dL Glucose 127 H (65-100) mg/dL Albumin 3.6 L (3.9-5) g/dL
--- NOTE | 2021-01-23 16:30 | Progress Note ---
Subjective Date of service: 01/23/21 Interval history: patient doing well, low BP, stable under management with hospitalist Knee dressing changed Incision CDI Calf soft NT NVI Recommended ROM exercises. Doing well from knee stanpoint of view. Recommended her Outpatiuent PT once she DC DC once clear by medicine and PT and ID Follow ID recommendation Objective Vital signs: Vital Signs - 12hr 01/23/21 01/23/21 08:15 11:38 Temperature 98.7 F 98.9 F Pulse Rate 67 76 Respiratory 18 18 Rate Blood Pressure 93/56 103/56 O2 Sat by Pulse 99 98 Oximetry - Labs CBC & BMP: 01/23/21 09:05 01/23/21 09:05 Labs: Abnormal lab results 01/23/21 01/23/21 Range/Units 09:05 09:05 RBC 3.17 L (3.65-5.03) M/mm3 Hgb 8.9 L (10.1-14.3) gm/dl Hct 27.7 L (30.3-42.9) % [place] % (Auto) 8.8 H (0.0-7.3) % BUN 19 H (7-17) mg/dL Creatinine 1.5 H (0.6-1.2) mg/dL Glucose 127 H (65-100) mg/dL Albumin 3.6 L (3.9-5) g/dL
--- NOTE | 2021-01-23 16:32 | Progress Note ---
Subjective Date of service: 01/23/21 Interval history: once DC, patient will followup with her PCP for temp, and followup with Dr jasso in a week. Objective Vital signs: Vital Signs - 12hr 01/23/21 01/23/21 08:15 11:38 Temperature 98.7 F 98.9 F Pulse Rate 67 76 Respiratory 18 18 Rate Blood Pressure 93/56 103/56 O2 Sat by Pulse 99 98 Oximetry - Labs CBC & BMP: 01/23/21 09:05 01/23/21 09:05 Labs: Abnormal lab results 01/23/21 01/23/21 Range/Units 09:05 09:05 RBC 3.17 L (3.65-5.03) M/mm3 Hgb 8.9 L (10.1-14.3) gm/dl Hct 27.7 L (30.3-42.9) % [place] % (Auto) 8.8 H (0.0-7.3) % BUN 19 H (7-17) mg/dL Creatinine 1.5 H (0.6-1.2) mg/dL Glucose 127 H (65-100) mg/dL Albumin 3.6 L (3.9-5) g/dL
--- NOTE | 2021-01-23 20:37 | Progress Note ---
Assessment and Plan Assessment and plan: - History of Present Illness 60-year-old female with history of hypertension, morbid obesity, type obesity hypoventilation syndrome, GERD, diabetes mellitus, osteoarthritis, previous left total knee replacement 5 years ago, admitted on 01/09/2021 for elective revision of the left knee. (1) Osteoarthritis, s/p revision of left knee JR on 01/16 Persistent postoperative fever since 01/17 Patient underwent procedure on which include revision of the left knee arthroplasty, removal of the femoral and tibial components. By 01/17/2021 patient started spiking fever 100.8, temperature went up to 101 on 01/19/2021. No leukocytosis since admitted. Creatinine was 1.38 went up to 1.4. Urinalysis negative. Synovial fluid 330,000 WBC 7 four 3 m RBCs. Urinalysis negative. Chest x-ray unremarkable. Multiple left knee synovial fluid cultures negative. Blood cultures 01/18/2021 no growth to date. ID consulted and following. Remains on vancomycin and Levaquin empirically. Fever is resolving, none today. Cultures remain negative. (2) CKD 3, NORRIS Creatinine slowly rising from 1.2-1.5. Recent baseline creatinine 1.3-1.4. BP is soft. Given 1 L of normal saline and monitoring BP and creatinine Stopped Metformin (3) diabetes mellitus Will discontinue Metformin since creatinine elevated (4) GERD (gastroesophageal reflux disease) Current Visit: Yes Status: Acute Qualifiers: Esophagitis presence: without esophagitis Qualified Code(s): K21.9 - Gastro-esophageal reflux disease without esophagitis Plan to address problem: PPI therapy, supportive care, (5) Obesity hypoventilation syndrome Current Visit: Yes Status: Acute Plan to address problem: Balanced diet, increase physical activity discharge, outpatient pulmonary follow-up for sleep study. (4) hypertension Current Visit: Yes Status: Acute Continue home meds (5) History of DVT (deep vein thrombosis) Current Visit: Yes Status: Acute Plan to address problem: Continue therapeutic anticoagulation. (6) DVT prophylaxis Current Visit: Yes Status: Acute Plan to address problem: SCD bilateral lower extremities while in bed, continue therapeutic anticoagulation Also negative for DVT 01/17/21 Patient s/p left knee arthroplasty yesterday. She is doing well. Minimal pain left knee. PT to see. 01/18/21 Patient with osteoarthritis s/p left knee arthroplasty on 01/16/[address] patrick. She has been having fevers since yesterday highest 100.8. UA was negative yesterday. Blood cultures x2 ordered. Will also obtain Chest x ray. 01/19/21 Patient had left knee arthroplasty on 01/16/21 for osteoarthritis. now having persistent fevers. T max 100.8. WBC normal. Urinalysis neg, CXR neg, Doppler US legs neg. Blood cultures ordered:no growth after 24 hrs. Urine cultures ordered. No source of infection seen. Will consult ID for further evaluation. Discussed with Dr. Patrick, Orthopedic Surgeon. 01/20/21 Patient had left knee arthroplasty on 01/16/21 for osteoarthritis. She now has persistent fevers. T max 101.5. WBC normal. Urinalysis neg, CXR neg, Doppler US legs neg. Blood cultures ordered:no growth after 24 hrs. Urine cultures ordered. No obvious source of infection seen. Consulted ID and she was seen by Dr. Nixon. She ordered repeat Covid-testing, Procalcitonin neg. Discussed with ID Physician. 01/21/2021: Patient remains fairly asymptomatic and ambulating. BP soft with rising creatinine. Ordered NS bolus. Discontinue Metformin. Low-grade fever persistent. Cultures negative. On empiric antibiotic therapy, vancomycin and Levaquin, ID following 01/22/2021: BP remains soft and was given NS bolus. Creatinine is elevated and being monitored. Fever seems to be resolving. Possible discharge tomorrow if renal function improves. Hospitalist Physical - Constitutional Vitals: Temp Pulse Resp BP Pulse Ox 100.5 F H 75 16 124/69 100 01/23/21 19:31 01/23/21 19:31 01/23/21 19:31 01/23/21 19:31 01/23/21 19:31 General appearance: Present: no acute distress, obese Results - Labs CBC & Chem 7: 01/23/21 09:05 01/23/21 09:05 Labs: Laboratory Last Values WBC 6.3 K/mm3 (4.5-11.0) 01/23/21 09:05 RBC 3.17 M/mm3 (3.65-5.03) L 01/23/21 09:05 Hgb 8.9 gm/dl (10.1-14.3) L 01/23/21 09:05 Hct 27.7 % (30.3-42.9) L 01/23/21 09:05 MCV 87 fl (79-97) 01/23/21 09:05 MCH 28 pg (28-32) 01/23/21 09:05 MCHC 32 % (30-34) 01/23/21 09:05 RDW 15.1 % (13.2-15.2) 01/23/21 09:05 Plt Count 272 K/mm3 (140-440) 01/23/21 09:05 Lymph % (Auto) 27.9 % (13.4-35.0) 01/23/21 09:05 [place] % (Auto) 8.8 % (0.0-7.3) H 01/23/21 09:05 Eos % (Auto) 3.8 % (0.0-4.3) 01/23/21 09:05 Baso % (Auto) 1.2 % (0.0-1.8) 01/23/21 09:05 Lymph # (Auto) 1.8 K/mm3 (1.2-5.4) 01/23/21 09:05 [place] # (Auto) 0.6 K/mm3 (0.0-0.8) 01/23/21 09:05 Eos # (Auto) 0.2 K/mm3 (0.0-0.4) 01/23/21 09:05 Baso # (Auto) 0.1 K/mm3 (0.0-0.1) 01/23/21 09:05 Seg Neutrophils % 58.3 % (40.0-70.0) 01/23/21 09:05 Seg Neutrophils # 3.7 K/mm3 (1.8-7.7) 01/23/21 09:05 PT 13.2 Sec. (12.2-14.9) 01/16/21 15:23 INR 0.90 (0.87-1.13) 01/16/21 15:23 APTT 25.4 Sec. (24.2-36.6) 01/16/21 15:23 D-Dimer 861.39 ng/mlDDU (0-234) H 01/19/21 19:03 Sodium 140 mmol/L (137-145) 01/23/21 09:05 Potassium 4.7 mmol/L (3.6-5.0) 01/23/21 09:05 Chloride 100.0 mmol/L (98-107) 01/23/21 09:05 Carbon Dioxide 26 mmol/L (22-30) 01/23/21 09:05 Anion Gap 19 mmol/L 01/23/21 09:05 BUN 19 mg/dL (7-17) H 01/23/21 09:05 Creatinine 1.5 mg/dL (0.6-1.2) H 01/23/21 09:05 Estimated GFR 43 ml/min 01/23/21 09:05 BUN/Creatinine Ratio 13 % 01/23/21 09:05 Glucose 127 mg/dL (65-100) H 01/23/21 09:05 POC Glucose 129 mg/dL (70-105) H 01/22/21 15:53 Calcium 9.0 mg/dL (8.4-10.2) 01/23/21 09:05 Ferritin 246.4 ng/mL (10.0-200.0) H 01/19/21 19:03 Total Bilirubin 0.30 mg/dL (0.1-1.2) 01/23/21 09:05 AST 23 units/L (5-40) 01/23/21 09:05 ALT 11 units/L (7-56) 01/23/21 09:05 Alkaline Phosphatase 80 units/L (35-129) 01/23/21 09:05 C-Reactive Protein 23.00 mg/dL (0.00-1.30) H 01/19/21 16:42 NT-Pro-B Natriuret Pep 222.0 pg/mL (0-900) 01/23/21 09:05 Total Protein 7.0 g/dL (6.3-8.2) 01/23/21 09:05 Albumin 3.6 g/dL (3.9-5) L 01/23/21 09:05 Albumin/Globulin Ratio 1.1 % 01/23/21 09:05 Procalcitonin 0.06 ng/mL (<0.15) 01/19/21 16:42 Urine Color Colorless (Yellow) 01/17/21 Unknown Urine Turbidity Clear (Clear) 01/17/21 Unknown Urine pH 5.0 (5.0-7.0) 01/17/21 Unknown Ur Specific [place] 1.004 (1.003-1.030) 01/17/21 Unknown Urine Protein <15 mg/dl mg/dL (Negative) 01/17/21 Unknown Urine Glucose (UA) Neg mg/dL (Negative) 01/17/21 Unknown Urine Ketones Neg mg/dL (Negative) 01/17/21 Unknown Urine Blood Sm (Negative) 01/17/21 Unknown Urine Nitrite Neg (Negative) 01/17/21 Unknown Urine Bilirubin Neg (Negative) 01/17/21 Unknown Urine Urobilinogen < 2.0 mg/dL (<2.0) 01/17/21 Unknown Ur Leukocyte Esterase Neg (Negative) 01/17/21 Unknown Urine WBC (Auto) < 1.0 /HPF (0.0-6.0) 01/17/21 Unknown Urine RBC (Auto) 1.0 /HPF (0.0-6.0) 01/17/21 Unknown Fluid Type Synovial 01/16/21 Unknown Fluid Color Colorless 01/16/21 Unknown Fluid Appearance Clear 01/16/21 Unknown Fluid WBC 651619 /mm3 01/16/21 Unknown Fluid RBC [id number] /mm3 01/16/21 Unknown Fluid Seg Neutrophils 0 % 01/16/21 Unknown Fluid Lymphocytes 48.0 % 01/16/21 Unknown Fluid Reactive Lymphs 0 % 01/16/21 Unknown Fluid Monocytes 52.0 % 01/16/21 Unknown Fluid Eosinophils 0 % 01/16/21 Unknown Fluid Basophils 0 % 01/16/21 Unknown Coronavirus (PCR) Negative (Negative) 01/20/21 Unknown Blood Type A POSITIVE 01/16/21 06:40 Antibody Screen Negative 01/16/21 06:40 Crossmatch See Detail 01/16/21 06:40 Microbiology: Microbiology 01/18/21 09:02 Peripheral/Venous Blood Culture - Final NO GROWTH AFTER 5 DAYS 01/18/21 09:02 Peripheral/Venous Blood Culture - Final NO GROWTH AFTER 5 DAYS Collier/IV: Voiding Method Toilet Active Medications - Current Medications Current Medications: Generic Name Dose Route Start Last Admin Trade Name Freq PRN Reason Stop Dose Admin Acetaminophen 650 mg 01/16/21 14:00 01/23/21 19:34 Acetaminophen 325 Mg Tab PO 650 mg Q4H PRN Administration Pain MILD(1-3)/Fever >100.5/DELACRUZ Hydrocodone Bitart/Acetaminophen 1 each 01/16/21 14:00 01/23/21 11:18 Hydrocodone/Acetaminophen 7.5-325mg Tab PO 1 each Q4H PRN Administration Pain, Moderate (4-6) Albuterol 2.5 mg 01/16/21 16:00 Albuterol 2.5 Mg/3 Ml Nebu IH Q4HRT PRN Shortness Of Breath Apixaban 2.5 mg 01/16/21 22:00 01/23/21 09:18 Apixaban 2.5 Mg Tab PO 2.5 mg Q12HR GIAN Administration Protocol Benzocaine/Menthol 1 each 01/16/21 21:06 01/20/21 15:13 Benzocaine/Menthol Lozenge MM 1 each Q2HR PRN Administration Sore Throat Cetirizine HCl 10 mg 01/17/21 10:00 01/23/21 09:17 Cetirizine 10 Mg Tab PO 10 mg DAILY GIAN Administration Cyclobenzaprine HCl 10 mg 01/16/21 22:00 01/22/21 21:50 Cyclobenzaprine 10 Mg Tab PO 10 mg QHS PRN Administration Muscle Spasm Docusate Sodium 100 mg 01/16/21 22:00 01/23/21 09:18 Docusate Sodium 100 Mg Cap PO 100 mg BID GIAN Administration Doxycycline Hyclate 100 mg 01/23/21 13:00 01/23/21 14:08 Doxycycline 100 Mg Cap PO 01/29/21 22:01 100 mg BID GIAN Administration Protocol Fluconazole 200 mg 01/23/21 15:00 01/23/21 16:10 Fluconazole 200 Mg Tab PO 01/24/21 10:01 200 mg QDAY GIAN Administration Protocol Fluticasone Propionate 50 mcg 01/16/21 13:21 01/22/21 08:32 Fluticasone Propionate Nasal [place] 16 Gm NS 50 mcg PRN PRN Administration Allergy Symptoms Gabapentin 300 mg 01/16/21 14:00 01/23/21 14:08 Gabapentin 300 Mg Cap PO 300 mg Q8HR GIAN Administration Sodium Chloride 1,000 mls @ 500 mls/hr 01/23/21 11:30 Nacl 0.9% 1000 Ml IV 01/24/21 13:29 DIRECT GIAN Lactobacillus Acidophilus 1 each 01/17/21 10:00 01/23/21 09:17 Lactinex Chew Tab PO 1 each QDAY GIAN Administration Levofloxacin 750 mg 01/23/21 13:00 01/23/21 14:08 Levofloxacin 750 Mg Tab PO 01/29/21 10:01 750 mg Q24HR GIAN Administration Protocol Magnesium Hydroxide 30 ml 01/16/21 14:00 Magnesium Hydroxide (Mom) Oral Liqd Udc PO Q4H PRN Constipation Multivitamins 1 each 01/17/21 10:00 01/23/21 09:18 Multivitamins ,Therapeutic Tab PO 1 each DAILY GIAN Administration Oxycodone/Acetaminophen 1 tab 01/16/21 14:00 01/23/21 16:32 Oxycodone /Acetaminophen 5-325mg Tab PO 1 tab Q6H PRN Administration Pain, Moderate (4-6) Pantoprazole Sodium 40 mg 01/17/21 10:00 01/23/21 09:17 Pantoprazole 40 Mg Tab PO 40 mg DAILY GIAN Administration Sodium Chloride 10 ml 01/16/21 14:00 01/22/21 21:53 Sodium Chloride 0.9% 10 Ml Flush Syringe IV 01/27/21 13:59 10 ml PRN NR Administration Sodium Chloride 10 ml 01/16/21 22:00 01/23/21 09:18 Sodium Chloride 0.9% 10 Ml Flush Syringe IV 10 ml BID GIAN Administration Sodium Chloride 10 ml 01/16/21 14:00 Sodium Chloride 0.9% 10 Ml Flush Syringe IV PRN PRN LINE FLUSH Tamsulosin HCl 0.4 mg 01/17/21 10:00 01/23/21 09:18 Tamsulosin 0.4 Mg Cap PO 0.4 mg QDAY GIAN Administration
[2021-01-23] MEDS: CYCLOBENZAPRINE 10 MG TAB PO PRN (21:44)
[2021-01-24] MEDS: SODIUM CHLORIDE 0.9% 1000 ML 1,000 ML IV SCH ×2 (04:38→07:38)
[2021-01-24] MEDS: GABAPENTIN 300 MG CAP PO SCH ×3 (06:18→21:06)
[2021-01-24] MEDS: HYDROcodone/ACETAMINOPHEN 7.5-325MG TAB PO PRN ×2 (09:40→20:31)
[2021-01-24] MEDS: LACTINEX CHEW TAB PO SCH (09:41)
[2021-01-24] MEDS: CETIRIZINE 10 MG TAB PO SCH (09:41)
[2021-01-24] MEDS: DOCUSATE SODIUM 100 MG CAP PO SCH ×2 (09:41→21:04)
[2021-01-24] MEDS: TAMSULOSIN 0.4 MG CAP PO SCH (09:42)
[2021-01-24] MEDS: MULTIVITAMINS ,THERAPEUTIC TAB PO SCH (09:42)
[2021-01-24] MEDS: PANTOPRAZOLE 40 MG TAB PO SCH (09:42)
[2021-01-24] MEDS: APIXABAN 2.5 MG TAB PO SCH ×2 (09:42→21:05)
[2021-01-24] MEDS: levoFLOXacin 750 MG TAB PO SCH (09:43)
[2021-01-24] MEDS: DOXYCYCLINE 100 MG CAP PO SCH ×2 (09:43→21:07)
[2021-01-24 10:02] LABS: Basophils % (Auto) 0.6 % (0.0-1.8); Eosinophils # (Auto) 0.2 K/mm3 (0.0-0.4); Eosinophils % (Auto) 3.1 % (0.0-4.3); Hematocrit 25.5 % (30.3-42.9); Hemoglobin 8.2 gm/dl (10.1-14.3); Lymphocytes # (Auto) 1.3 K/mm3 (1.2-5.4); Lymphocytes % (Auto) 24.9 % (13.4-35.0); Mean Corpuscular HGB Conc 32 % (30-34); Mean Corpuscular Volume 89 fl (79-97); Monocytes # (Auto) 0.5 K/mm3 (0.0-0.8); Monocytes % (Auto) 10.7 % (0.0-7.3); Platelet Count 259 K/mm3 (140-440); Red Blood Count 2.89 M/mm3 (3.65-5.03); Red Cell Distribution Width 15.2 % (13.2-15.2)
[2021-01-24 10:20] LABS: Albumin 3.1 g/dL (3.9-5); Calcium 8.5 mg/dL (8.4-10.2)
[2021-01-24] MEDS: FLUCONAZOLE 200 MG TAB PO SCH (11:00)
[2021-01-24] MEDS: oxyCODONE /ACETAMINOPHEN 5-325MG TAB PO PRN (13:31)
--- NOTE | 2021-01-24 19:32 | Progress Note ---
Hospitalist Physical - Constitutional Vitals: Temp Pulse Resp BP Pulse Ox 99.4 F 70 18 113/62 99 01/24/21 17:07 01/24/21 17:07 01/24/21 17:07 01/24/21 17:07 01/24/21 17:07 General appearance: Present: no acute distress, obese Results - Labs CBC & Chem 7: 01/24/21 09:33 01/24/21 09:33 Labs: Laboratory Last Values WBC 5.1 K/mm3 (4.5-11.0) 01/24/21 09:33 RBC 2.89 M/mm3 (3.65-5.03) L 01/24/21 09:33 Hgb 8.2 gm/dl (10.1-14.3) L 01/24/21 09:33 Hct 25.5 % (30.3-42.9) L 01/24/21 09:33 MCV 89 fl (79-97) 01/24/21 09:33 MCH 29 pg (28-32) 01/24/21 09:33 MCHC 32 % (30-34) 01/24/21 09:33 RDW 15.2 % (13.2-15.2) 01/24/21 09:33 Plt Count 259 K/mm3 (140-440) 01/24/21 09:33 Lymph % (Auto) 24.9 % (13.4-35.0) 01/24/21 09:33 [place] % (Auto) 10.7 % (0.0-7.3) H 01/24/21 09:33 Eos % (Auto) 3.1 % (0.0-4.3) 01/24/21 09:33 Baso % (Auto) 0.6 % (0.0-1.8) 01/24/21 09:33 Lymph # (Auto) 1.3 K/mm3 (1.2-5.4) 01/24/21 09:33 [place] # (Auto) 0.5 K/mm3 (0.0-0.8) 01/24/21 09:33 Eos # (Auto) 0.2 K/mm3 (0.0-0.4) 01/24/21 09:33 Baso # (Auto) 0.0 K/mm3 (0.0-0.1) 01/24/21 09:33 Seg Neutrophils % 60.7 % (40.0-70.0) 01/24/21 09:33 Seg Neutrophils # 3.1 K/mm3 (1.8-7.7) 01/24/21 09:33 PT 13.2 Sec. (12.2-14.9) 01/16/21 15:23 INR 0.90 (0.87-1.13) 01/16/21 15:23 APTT 25.4 Sec. (24.2-36.6) 01/16/21 15:23 D-Dimer 861.39 ng/mlDDU (0-234) H 01/19/21 19:03 Sodium 142 mmol/L (137-145) 01/24/21 09:33 Potassium 4.5 mmol/L (3.6-5.0) 01/24/21 09:33 Chloride 106.4 mmol/L (98-107) 01/24/21 09:33 Carbon Dioxide 24 mmol/L (22-30) 01/24/21 09:33 Anion Gap 16 mmol/L 01/24/21 09:33 BUN 16 mg/dL (7-17) 01/24/21 09:33 Creatinine 1.3 mg/dL (0.6-1.2) H 01/24/21 09:33 Estimated GFR 51 ml/min 01/24/21 09:33 BUN/Creatinine Ratio 12 % 01/24/21 09:33 Glucose 135 mg/dL (65-100) H 01/24/21 09:33 POC Glucose 129 mg/dL (70-105) H 01/22/21 15:53 Calcium 8.5 mg/dL (8.4-10.2) 01/24/21 09:33 Ferritin 246.4 ng/mL (10.0-200.0) H 01/19/21 19:03 Total Bilirubin 0.20 mg/dL (0.1-1.2) 01/24/21 09:33 AST 21 units/L (5-40) 01/24/21 09:33 ALT 10 units/L (7-56) 01/24/21 09:33 Alkaline Phosphatase 72 units/L (35-129) 01/24/21 09:33 C-Reactive Protein 23.00 mg/dL (0.00-1.30) H 01/19/21 16:42 NT-Pro-B Natriuret Pep 222.0 pg/mL (0-900) 01/23/21 09:05 Total Protein 6.0 g/dL (6.3-8.2) L 01/24/21 09:33 Albumin 3.1 g/dL (3.9-5) L 01/24/21 09:33 Albumin/Globulin Ratio 1.1 % 01/24/21 09:33 Procalcitonin 0.06 ng/mL (<0.15) 01/19/21 16:42 Urine Color Colorless (Yellow) 01/17/21 Unknown Urine Turbidity Clear (Clear) 01/17/21 Unknown Urine pH 5.0 (5.0-7.0) 01/17/21 Unknown Ur Specific [place] 1.004 (1.003-1.030) 01/17/21 Unknown Urine Protein <15 mg/dl mg/dL (Negative) 01/17/21 Unknown Urine Glucose (UA) Neg mg/dL (Negative) 01/17/21 Unknown Urine Ketones Neg mg/dL (Negative) 01/17/21 Unknown Urine Blood Sm (Negative) 01/17/21 Unknown Urine Nitrite Neg (Negative) 01/17/21 Unknown Urine Bilirubin Neg (Negative) 01/17/21 Unknown Urine Urobilinogen < 2.0 mg/dL (<2.0) 01/17/21 Unknown Ur Leukocyte Esterase Neg (Negative) 01/17/21 Unknown Urine WBC (Auto) < 1.0 /HPF (0.0-6.0) 01/17/21 Unknown Urine RBC (Auto) 1.0 /HPF (0.0-6.0) 01/17/21 Unknown Fluid Type Synovial 01/16/21 Unknown Fluid Color Colorless 01/16/21 Unknown Fluid Appearance Clear 01/16/21 Unknown Fluid WBC [id number] /mm3 01/16/21 Unknown Fluid RBC [id number] /mm3 01/16/21 Unknown Fluid Seg Neutrophils 0 % 01/16/21 Unknown Fluid Lymphocytes 48.0 % 01/16/21 Unknown Fluid Reactive Lymphs 0 % 01/16/21 Unknown Fluid Monocytes 52.0 % 01/16/21 Unknown Fluid Eosinophils 0 % 01/16/21 Unknown Fluid Basophils 0 % 01/16/21 Unknown Coronavirus (PCR) Negative (Negative) 01/20/21 Unknown Blood Type A POSITIVE 01/16/21 06:40 Antibody Screen Negative 01/16/21 06:40 Crossmatch See Detail 01/16/21 06:40 Collier/IV: Voiding Method Toilet Active Medications - Current Medications Current Medications: Generic Name Dose Route Start Last Admin Trade Name Freq PRN Reason Stop Dose Admin Acetaminophen 650 mg 01/16/21 14:00 01/23/21 19:34 Acetaminophen 325 Mg Tab PO 650 mg Q4H PRN Administration Pain MILD(1-3)/Fever >100.5/DELACRUZ Hydrocodone Bitart/Acetaminophen 1 each 01/16/21 14:00 01/24/21 09:40 Hydrocodone/Acetaminophen 7.5-325mg Tab PO 1 each Q4H PRN Administration Pain, Moderate (4-6) Albuterol 2.5 mg 01/16/21 16:00 Albuterol 2.5 Mg/3 Ml Nebu IH Q4HRT PRN Shortness Of Breath Apixaban 2.5 mg 01/16/21 22:00 01/24/21 09:42 Apixaban 2.5 Mg Tab PO 2.5 mg Q12HR GIAN Administration Protocol Benzocaine/Menthol 1 each 01/16/21 21:06 01/20/21 15:13 Benzocaine/Menthol Lozenge MM 1 each Q2HR PRN Administration Sore Throat Cetirizine HCl 10 mg 01/17/21 10:00 01/24/21 09:41 Cetirizine 10 Mg Tab PO 10 mg DAILY GIAN Administration Cyclobenzaprine HCl 10 mg 01/16/21 22:00 01/23/21 21:44 Cyclobenzaprine 10 Mg Tab PO 10 mg QHS PRN Administration Muscle Spasm Docusate Sodium 100 mg 01/16/21 22:00 01/24/21 09:41 Docusate Sodium 100 Mg Cap PO 100 mg BID GIAN Administration Doxycycline Hyclate 100 mg 01/23/21 13:00 01/24/21 09:43 Doxycycline 100 Mg Cap PO 01/29/21 22:01 100 mg BID GIAN Administration Protocol Fluticasone Propionate 50 mcg 01/16/21 13:21 01/22/21 08:32 Fluticasone Propionate Nasal [place] 16 Gm NS 50 mcg PRN PRN Administration Allergy Symptoms Gabapentin 300 mg 01/16/21 14:00 01/24/21 13:31 Gabapentin 300 Mg Cap PO 300 mg Q8HR GIAN Administration Lactobacillus Acidophilus 1 each 01/17/21 10:00 01/24/21 09:41 Lactinex Chew Tab PO 1 each QDAY GIAN Administration Levofloxacin 750 mg 01/23/21 13:00 01/24/21 09:43 Levofloxacin 750 Mg Tab PO 01/29/21 10:01 750 mg Q24HR GIAN Administration Protocol Magnesium Hydroxide 30 ml 01/16/21 14:00 Magnesium Hydroxide (Mom) Oral Liqd Udc PO Q4H PRN Constipation Multivitamins 1 each 01/17/21 10:00 01/24/21 09:42 Multivitamins ,Therapeutic Tab PO 1 each DAILY GIAN Administration Oxycodone/Acetaminophen 1 tab 01/16/21 14:00 01/24/21 13:31 Oxycodone /Acetaminophen 5-325mg Tab PO 1 tab Q6H PRN Administration Pain, Moderate (4-6) Pantoprazole Sodium 40 mg 01/17/21 10:00 01/24/21 09:42 Pantoprazole 40 Mg Tab PO 40 mg DAILY GIAN Administration Sodium Chloride 10 ml 01/16/21 14:00 01/24/21 11:00 Sodium Chloride 0.9% 10 Ml Flush Syringe IV 01/27/21 13:59 10 ml PRN NR Administration Sodium Chloride 10 ml 01/16/21 22:00 01/24/21 11:01 Sodium Chloride 0.9% 10 Ml Flush Syringe IV 10 ml BID GIAN Administration Sodium Chloride 10 ml 01/16/21 14:00 Sodium Chloride 0.9% 10 Ml Flush Syringe IV PRN PRN LINE FLUSH Tamsulosin HCl 0.4 mg 01/17/21 10:00 01/24/21 09:42 Tamsulosin 0.4 Mg Cap PO 0.4 mg QDAY GIAN Administration
[2021-01-24] MEDS: CYCLOBENZAPRINE 10 MG TAB PO PRN (20:31)
[2021-01-25] MEDS: ACETAMINOPHEN 325 MG TAB PO PRN (01:43)
[2021-01-25] MEDS: GABAPENTIN 300 MG CAP PO SCH (06:22)
[2021-01-25] MEDS: oxyCODONE /ACETAMINOPHEN 5-325MG TAB PO PRN (08:05)
--- NOTE | 2021-01-25 08:19 | Discharge Summary ---
Providers - Providers Date of Admission: 01/16/21 06:59 Date of discharge: 03/28/20 Attending physician: KRIS GUERRERO MD 01/16/21 13:17 Consult to Case Management [CONS] Routine Services Needed at Discharge: Other Physical Therapy DME Equipment Customs Appraiser Home Health Services Notified:: today Additional Physician Instructions: Assess Discharge needs. Occupational Therapy Evaluate and Treat [CONS] Routine Comment: Reason For Exam: total knee revision left Physical Therapy Evaluation and Treat [CONS] Routine Comment: Reason For Exam: Eval and Treat knee revision left Mode of Transport?: Walker Weight bearing status?: Full wt bearing Assistive devices?: Yes 01/19/21 07:20 Consult to Physician [CONS] Routine Comment: Consulting Provider: RASHID OVIEDO Physician Instructions: Reason For Exam: Fever,recent knee surg Primary care physician: SUNSHINE VASQUEZ MD Hospitalization Condition: Stable Hospital course: 60-year-old female with history of hypertension, morbid obesity, type obesity hypoventilation syndrome, GERD, diabetes mellitus, osteoarthritis, previous left total knee replacement 5 years ago, admitted on 01/09/2021 for elective revision of the left knee. (1) Osteoarthritis, s/p revision of left knee JR on 01/16 Persistent postoperative fever since 01/17 Patient underwent procedure on which include revision of the left knee arthroplasty, removal of the femoral and tibial components. By 01/17/2021 patient started spiking fever 100.8, temperature went up to 101 on 01/19/2021. No leukocytosis since admitted. Creatinine was 1.38 went up to 1.4. Urinalysis negative. Synovial fluid 330,000 WBC 7 four 3 m RBCs. Urinalysis negative. Chest x-ray unremarkable. Multiple left knee synovial fluid cultures negative. Blood cultures 01/18/2021 no growth to date. ID consulted and following. Remains on vancomycin and Levaquin empirically. Fever is resolving. Cultures remain negative. (2) CKD 3, NORRIS Creatinine slowly rising from 1.2-1.5. Recent baseline creatinine 1.3-1.4. BP is soft. Given 1 L of normal saline and monitoring BP and creatinine Holding Metformin (3) diabetes mellitus Will discontinue Metformin since creatinine elevated (4) GERD (gastroesophageal reflux disease) Current Visit: Yes Status: Acute Qualifiers: Esophagitis presence: without esophagitis Qualified Code(s): K21.9 - Gastro-esophageal reflux disease without esophagitis Plan to address problem: PPI therapy, supportive care, (5) Obesity hypoventilation syndrome Current Visit: Yes Status: Acute Plan to address problem: Balanced diet, increase physical activity discharge, outpatient pulmonary follow-up for sleep study. (4) hypertension Current Visit: Yes Status: Acute Continue home meds (5) History of DVT (deep vein thrombosis) Current Visit: Yes Status: Acute Plan to address problem: Continue Eliquis for DVT prophylaxis Disposition: Postoperative course was complicated by persistent low-grade fever with negative cultures and negative ultrasound for DVT. ID service was consulted and followed patient and daily basis. She was treated empirically with vancomycin and Levaquin. She did not appear septic or toxic and no leukocytosis throughout the course. Left knee incision was clean without any evidence of postoperative infection. ID fusion, Dr. Childs recommended Levaquin and doxycycline x1 week after discharge. He agreed to see the patient for follow-up after discharge in 10 days. She has history of CKD 3 and her creatinine markos to 1.6 in the setting of mild hypotension but improved with IV fluids. Metformin was briefly held and resumed at the time of discharge. Patient was advised to hold losartan, HCTZ and amlodipine for a week and then resume since her blood pressure was soft. Patient will have follow-up with her regular crime lab technician after discharge. Patient was able to ambulate well with PT and orthopedic doctor was satisfied with the recovery and range of movements. Orthopedic doctor's office made arrangements for home physical therapy followed by physical therapy at PT clinic. Patient has an appointment to be seen by orthopedic, Dr. Lindsey in 1 week. Patient was placed on Eliquis for DVT prophylaxis. Patient was discharged to home in stable condition. Discharge diagnoses: Left knee joint revision surgery Postoperative course complicated by low-grade fevers without leukocytosis Sepsis work-up negative. Also negative for DVT. Morbid obesity Type 2 diabetes mellitus Borderline hypotension postoperatively NORRIS on CKD 3, resolved with hydration and improvement of BP Disposition: 01 HOME / SELF CARE / HOMELESS Final Discharge Diagnosis (Prints w/discharge instructions): Left knee joint revision surgery. Postoperative course complicated by low-grade fevers without leukocytosis. Sepsis work-up negative. Also negative for DVT. Morbid obesity. Type 2 diabetes mellitus. Borderline hypotension postoperatively. NORRIS on CKD 3, resolved with hydration and improvement of BP Exam - Constitutional Vitals: Temp Pulse Resp BP Pulse Ox 99.1 F 62 16 103/52 95 01/25/21 04:03 01/25/21 04:03 01/25/21 04:03 01/25/21 04:03 01/25/21 04:03 General appearance: Present: no acute distress, obese - EENT Eyes: Present: PERRL ENT: clear oral mucosa - Neck Neck: Present: supple - Respiratory Respiratory effort: normal Respiratory: bilateral: CTA - Cardiovascular Rhythm: regular - Extremities Extremity abnormal: edema, other (Swelling below left knee is improving, no erythema or discharge from the incision.) - Abdominal General gastrointestinal: Present: soft, non-tender, tender, normal bowel sounds - Integumentary Integumentary: Absent: rash - Neurologic Neurologic: no focal deficits, moves all extremities Plan Activity: advance as tolerated, other (Ambulate as per instruction ER by orthopedic doctor and the physical therapist) Diet: low fat, low salt, diabetic (1600 tab) Wound: keep clean and dry Additional Instructions: See orthopedic doctor, Dr. Lindsey in 1 week, infectious disease doctor in 10 days and crime lab technician in 2 weeks for follow-up. Return to ER if you experience fever, chills, redness or drainage from the left knee. Hold your blood pressure pills for about a week and then resume Follow up with: SUNSHINE VASQUEZ MD [Primary Care Provider] - 7 Days KARINA CHILDS MD [Staff Physician] - 10 Days HUY LINDSEY MD [Staff Physician] - 7 Days Prescriptions: Apixaban [Eliquis] 2.5 mg PO Q12HR #60 tablet levoFLOXacin [Levaquin TAB] 750 mg PO Q24HR #7 tablet oxyCODONE /ACETAMINOPHEN [Percocet 5/325 mg] 1 tab PO Q6H PRN #12 tablet PRN Reason: Pain, Moderate (4-6) DOXYCYCLINE Hyclate [Vibramycin CAP] 100 mg PO BID #14 tab
[2021-01-25 08:43] VITALS: BP 124/52
[2021-01-25] MEDS: levoFLOXacin 750 MG TAB PO SCH (10:00)
[2021-01-25] MEDS: APIXABAN 2.5 MG TAB PO SCH (10:00)
[2021-01-25] MEDS: DOCUSATE SODIUM 100 MG CAP PO SCH (10:00)
[2021-01-25] MEDS: LACTINEX CHEW TAB PO SCH (10:00)
[2021-01-25] MEDS: PANTOPRAZOLE 40 MG TAB PO SCH (10:00)
[2021-01-25] MEDS: MULTIVITAMINS ,THERAPEUTIC TAB PO SCH (10:00)
[2021-01-25] MEDS: DOXYCYCLINE 100 MG CAP PO SCH (10:00)
[2021-01-25] MEDS: CETIRIZINE 10 MG TAB PO SCH (10:00)
[2021-01-25] MEDS: TAMSULOSIN 0.4 MG CAP PO SCH (10:07)
--- NOTE | 2021-01-25 12:18 | Electrocardiograph Report ---
[facility] Test Date: 2021-01-25 Test Time: 08:15:29 Pat Name: WAGNER VELA Department: Room: A469 1 Gender: F [employer] Assembler: JEANNE : 1960 Requested By: LUDA GUERRERO Order Number: [id number] Reading MD: Jeronimo Jackson Measurements Intervals [place] Rate: 67 P: 35 AK: 146 QRS: 17 QRSD: 90 T: 24 QT: 419 QTc: 443 Interpretive Statements Sinus rhythm Compared to ECG 12/31/2020 12:34:16 Sinus bradycardia no longer present Electronically Signed On 01-25-2021 12:17:26 EST by Jeronimo Jackson
[2021-01-25] MEDS: HYDROcodone/ACETAMINOPHEN 7.5-325MG TAB PO PRN (12:25)
== END 2021-01-25 13:54 | disposition home health service (06) | DRG 467 ==
LOC: 3A 01-16 06:59 → 4A 01-16 13:59
PROVIDERS: ADMIT Orthopaedic Surgery; ATTEND Internal Medicine
PROC: 0SPD0EZ Removal of Articulating Spacer from Left Knee Joint, Open Approach (ICD-10-PCS; principal; 2021-01-16)
PROC: 0SRD0JZ Replacement of Left Knee Joint with Synthetic Substitute, Open Approach (ICD-10-PCS; 2021-01-16)
PROC: 0JBP3ZX Excision of Left Lower Leg Subcutaneous Tissue and Fascia, Percutaneous Approach, Diagnostic (ICD-10-PCS; 2021-01-16)
DX: M17.12 Unilateral primary osteoarthritis, left knee (principal); E66.2 Morbid (severe) obesity with alveolar hypoventilation; Z68.41 Body mass index [BMI] 40.0-44.9, adult; N17.9 Acute kidney failure, unspecified; M25.362 Other instability, left knee; Z20.822 Contact with and (suspected) exposure to COVID-19; K21.9 Gastro-esophageal reflux disease without esophagitis; I12.9 Hypertensive chronic kidney disease with stage 1 through stage 4 chronic kidney disease, or unspecified chronic kidney disease; E11.22 Type 2 diabetes mellitus with diabetic chronic kidney disease; N18.30 Chronic kidney disease, stage 3 unspecified; Z83.3 Family history of diabetes mellitus; Z82.49 Family history of ischemic heart disease and other diseases of the circulatory system; Z86.718 Personal history of other venous thrombosis and embolism
CPT/HCPCS: 36415; 64450; 71045; 80048; 80053; 81001; 82565; 82728; 82962; 83880; 84145; 85014; 85018; 85025; 85027; 85379; 85610; 85730; 86140; 86850; 86900; 86901; 86920; 87040; 87075; 87086; 87116; 88300; 88302; 88305; 89051; 93005; 93970; G0378; J3480; J3490; J7120; Q0162; C1713; C1776; J0690; J1100; J1170; J1885; J1956; J2001; J2250; J2400; J2405; J2704; J3010; J3370; J7030; J7040; U0003

== ENCOUNTER 2021-04-16 09:22 | Outpatient (CLI) | payer BC ==
[2021-04-16 09:53] LABS: Hematocrit 33.7 % (30.3-42.9); Hemoglobin 10.9 gm/dl (10.1-14.3); Mean Corpuscular HGB Conc 32 % (30-34); Mean Corpuscular Volume 87 fl (79-97); Platelet Count 231 K/mm3 (140-440); Red Blood Count 3.88 M/mm3 (3.65-5.03); Red Cell Distribution Width 15.6 % (13.2-15.2)
[2021-04-16 10:16] LABS: Albumin 4.1 g/dL (3.9-5); Calcium 9.2 mg/dL (8.4-10.2)
--- NOTE | 2021-04-16 12:05 | XRay Report ---
LEFT FOOT 3 VIEW(S) INDICATION / CLINICAL INFORMATION: LEFT FOOT PAIN COMPARISON: None available. FINDINGS: BONES / JOINT(S): No acute fracture or subluxation. Mild degenerative changes. Small plantar calcanea l enthesophyte. SOFT TISSUES: No significant abnormality. ADDITIONAL FINDINGS: None. Signer Name: Aubrey Arvizu MD Signed: 04/16/2021 12:01 PM Workstation Name: [id number]
--- NOTE | 2021-04-16 12:06 | XRay Report ---
LEFT ANKLE 3 VIEW(S) INDICATION / CLINICAL INFORMATION: LEFT ANKLE PAIN COMPARISON: None available. FINDINGS: BONES / JOINT(S): No acute fracture or subluxation. Mild DJD. SOFT TISSUES: Soft tissue swelling about the ankle. ADDITIONAL FINDINGS: None. Signer Name: Aubrey Arvizu MD Signed: 04/16/2021 12:02 PM Workstation Name: [email or web address]
[2021-04-16 16:10] LABS: Creatinine,Urine 112.3 mg/dL (0.1-20.0); Protein/Creatinine Ratio,Urine 0.07
== END 2021-04-16 09:23 | disposition home or self-care (01) ==
LOC: LAB 09:22
PROVIDERS: ATTEND Podiatrist Foot & Ankle Surgery
DX: M19.072 Primary osteoarthritis, left ankle and foot (principal); R94.4 Abnormal results of kidney function studies; I10 Essential (primary) hypertension; E11.21 Type 2 diabetes mellitus with diabetic nephropathy; E11.65 Type 2 diabetes mellitus with hyperglycemia; E78.5 Hyperlipidemia, unspecified; K21.9 Gastro-esophageal reflux disease without esophagitis; N13.9 Obstructive and reflux uropathy, unspecified; M79.89 Other specified soft tissue disorders; M77.32 Calcaneal spur, left foot
CPT/HCPCS: 36415; 80053; 82570; 84156; 85027

== ENCOUNTER 2021-05-23 07:38 | Outpatient (CLI) | payer BC ==
[2021-05-23 08:19] LABS: Hematocrit 35.2 % (30.3-42.9); Hemoglobin 11.6 gm/dl (10.1-14.3); Mean Corpuscular HGB Conc 33 % (30-34); Mean Corpuscular Volume 86 fl (79-97); Platelet Count 250 K/mm3 (140-440); Red Blood Count 4.12 M/mm3 (3.65-5.03); Red Cell Distribution Width 15.8 % (13.2-15.2)
[2021-05-23 08:44] LABS: Albumin 4.4 g/dL (3.9-5); Calcium 9.6 mg/dL (8.4-10.2)
[2021-05-23 11:34] LABS: Creatinine,Urine 151.5 mg/dL (0.1-20.0); Protein/Creatinine Ratio,Urine 0.07
== END 2021-05-23 07:39 | disposition home or self-care (01) ==
LOC: LAB 07:38
PROVIDERS: ATTEND Internal Medicine
DX: R94.4 Abnormal results of kidney function studies (principal)
CPT/HCPCS: 36415; 80053; 82570; 84156; 85027

== ENCOUNTER 2021-07-08 09:30 | Outpatient (CLI) | payer BC ==
[2021-07-08 14:04] LABS: Basophils % (Auto) 0.6 % (0.0-1.8); Eosinophils # (Auto) 0.1 K/mm3 (0.0-0.4); Eosinophils % (Auto) 1.5 % (0.0-4.3); Lymphocytes # (Auto) 2.2 K/mm3 (1.2-5.4); Lymphocytes % (Auto) 34.3 % (13.4-35.0); Mean Corpuscular HGB Conc 32 % (30-34); Mean Corpuscular Volume 87 fl (79-97); Monocytes # (Auto) 0.5 K/mm3 (0.0-0.8); Monocytes % (Auto) 7.8 % (0.0-7.3); Platelet Count 220 K/mm3 (140-440); Red Blood Count 3.93 M/mm3 (3.65-5.03); Red Cell Distribution Width 15.7 % (13.2-15.2)
[2021-07-08 14:14] LABS: Bilirubin,Urine NEG (Negative); Blood,Urine NEG (Negative); Color,Urine Yellow (Yellow); Protein,Urine <15 mg/dL mg/dL (Negative); Urobilinogen,Urine < 2.0 mg/dL (<2.0)
[2021-07-08 14:21] LABS: Albumin 4.4 g/dL (3.9-5); Calcium 9.1 mg/dL (8.4-10.2); Chol/HDL Ratio 3.03 %
[2021-07-08 14:23] LABS: RBC,Urine < 1.0 /HPF (0.0-6.0)
[2021-07-08 14:24] LABS: WBC,Urine < 1.0 /HPF (0.0-6.0)
[2021-07-08 14:33] LABS: Free T4 (Free Thyroxine) 1.25 ng/dL (0.76-1.46)
== END 2021-07-08 09:31 | disposition home or self-care (01) ==
LOC: LAB 09:30
DX: I10 Essential (primary) hypertension (principal); E78.2 Mixed hyperlipidemia; E11.9 Type 2 diabetes mellitus without complications
CPT/HCPCS: 36415; 80053; 80061; 81001; 82550; 84439; 84443; 85025

== ENCOUNTER 2021-07-09 10:45 | Outpatient (CLI) | payer BC ==
--- NOTE | 2021-07-09 12:12 | XRay Report ---
LEFT FOOT 3 VIEWS INDICATION: D49.2 G60.8. COMPARISON: None. IMPRESSION: There is a mild to moderate hallux valgus deformity with mild degenerative changes at th e first metatarsophalangeal joint. Minimal degenerative changes are identified in the midfoot. No acu te osseous abnormality, bone lesion or erosive joint pathology. Tiny plantar spur is noted. Signer Name: Drew Calvert Jr, MD Signed: 07/09/2021 12:05 PM Workstation Name: [id number]
== END 2021-07-09 10:46 | disposition home or self-care (01) ==
LOC: XRAY 10:45
PROVIDERS: ATTEND Podiatrist Foot & Ankle Surgery
DX: D49.2 Neoplasm of unspecified behavior of bone, soft tissue, and skin (principal); M19.072 Primary osteoarthritis, left ankle and foot; M20.12 Hallux valgus (acquired), left foot; G60.8 Other hereditary and idiopathic neuropathies

== ENCOUNTER 2021-09-05 06:22 | Outpatient (CLI) | payer BC ==
[2021-09-05 07:10] LABS: Creatinine,Urine 154.7 mg/dL (0.1-20.0); Protein/Creatinine Ratio,Urine 0.08
== END 2021-09-05 06:23 | disposition home or self-care (01) ==
LOC: LAB 06:22
PROVIDERS: ATTEND Internal Medicine
DX: R94.4 Abnormal results of kidney function studies (principal); E11.65 Type 2 diabetes mellitus with hyperglycemia; E78.5 Hyperlipidemia, unspecified; I10 Essential (primary) hypertension; E11.21 Type 2 diabetes mellitus with diabetic nephropathy; K21.9 Gastro-esophageal reflux disease without esophagitis; N13.9 Obstructive and reflux uropathy, unspecified; E66.01 Morbid (severe) obesity due to excess calories; E55.9 Vitamin D deficiency, unspecified
CPT/HCPCS: 82570; 84156

== ENCOUNTER 2021-09-05 06:27 | Outpatient (CLI) | payer BC ==
[2021-09-05 07:20] LABS: Basophils % (Auto) 0.5 % (0.0-1.8); Eosinophils # (Auto) 0.2 K/mm3 (0.0-0.4); Eosinophils % (Auto) 2.8 % (0.0-4.3); Hematocrit 33.3 % (30.3-42.9); Hemoglobin 10.9 gm/dl (10.1-14.3); Lymphocytes # (Auto) 2.2 K/mm3 (1.2-5.4); Lymphocytes % (Auto) 40.3 % (13.4-35.0); Mean Corpuscular HGB Conc 33 % (30-34); Mean Corpuscular Volume 87 fl (79-97); Monocytes # (Auto) 0.5 K/mm3 (0.0-0.8); Monocytes % (Auto) 8.2 % (0.0-7.3); Platelet Count 199 K/mm3 (140-440); Red Blood Count 3.82 M/mm3 (3.65-5.03); Red Cell Distribution Width 15.1 % (13.2-15.2)
[2021-09-05 07:36] LABS: % Iron Saturation 18.58 %; Albumin 4.3 g/dL (3.9-5); Calcium 9.4 mg/dL (8.4-10.2); Chol/HDL Ratio 3.26 %
[2021-09-09 16:24] LABS: Vitamin D, 25-OH, D2 <4 ng/mL
== END 2021-09-05 06:28 | disposition home or self-care (01) ==
LOC: LAB 06:27
PROVIDERS: ATTEND Surgery
DX: K21.9 Gastro-esophageal reflux disease without esophagitis (principal); E55.9 Vitamin D deficiency, unspecified; K30 Functional dyspepsia; E66.2 Morbid (severe) obesity with alveolar hypoventilation; M19.90 Unspecified osteoarthritis, unspecified site; E66.01 Morbid (severe) obesity due to excess calories; Z29.9 Encounter for prophylactic measures, unspecified; Z86.718 Personal history of other venous thrombosis and embolism; Z71.89 Other specified counseling
CPT/HCPCS: 36415; 80053; 80061; 82306; 82607; 82728; 83036; 83550; 84443; 85025; 85730

== ENCOUNTER 2021-10-01 07:06 | Outpatient (CLI) | payer BC ==
--- NOTE | 2021-10-01 09:01 | Fluoroscopy Report ---
BARIUM SWALLOW Indication: E66.01, Z01.818, K30. Technique: Single and double contrast barium technique utilized to evaluate the esophagus. FINDINGS: To begin the exam, swallowing was evaluated in the lateral position under direct fluorosco py. Swallowing was normal. No mucosal irregularity, mass, mass effect, or critical stenosis. A few tertiary contractions in th e mid to distal esophagus were witnessed during this exam with mild delay in esophageal emptying. No hiatal hernia or reflux was witnessed during this exam. IMPRESSION: Minimal to mild esophageal dysmotility was demonstrated during this exam. Otherwise unre markable exam. Fluoroscopic time: 1.9 minutes Number of fluoroscopic images: 28 Signer Name: Drew Calvert Jr, MD Signed: 10/01/2021 8:57 AM Workstation Name: [id number]
== END 2021-10-01 07:07 | disposition home or self-care (01) ==
LOC: FLUORO 07:06
PROVIDERS: ATTEND Surgery
DX: Z01.818 Encounter for other preprocedural examination (principal); E66.01 Morbid (severe) obesity due to excess calories; K30 Functional dyspepsia
CPT/HCPCS: 74220

== ENCOUNTER 2021-10-08 08:28 | Outpatient (CLI) | payer BC | END 2021-10-08 08:29 | disposition home or self-care (01) | LOC: PF 08:28 | PROVIDERS: ATTEND Surgery | DX: Z01.818 Encounter for other preprocedural examination (principal); E66.2 Morbid (severe) obesity with alveolar hypoventilation | CPT/HCPCS: 94010; 94726; 94729 ==

== ENCOUNTER 2021-11-13 11:00 | Outpatient (CLI) | payer BC | END 2021-11-13 11:01 | disposition home or self-care (01) | LOC: SLR 11:00 | PROVIDERS: ATTEND Surgery | DX: G47.33 Obstructive sleep apnea (adult) (pediatric) (principal) | CPT/HCPCS: 95810 ==